=== PATIENT | female | born 1950 | race Caucasian/White ===

== ENCOUNTER → 2016-04-24 08:45 | Outpatient (CLI) | payer MEDICARE, OTHER ==
[2015-12-12 10:11] VITALS: BMI 25.9
[~2016-04-24 08:45] MED LIST: ACETAMINOPHEN500 M1 PO; ADVIL200 MG PO; ATROVENT 0.02%2.5 ML UPD; BACTRIM DS TABL1 TAB PO; BENZONATATE200 MG PO; FLORASTOR250 MG PO; IPRAT-ALBUT 0.5-3 ML UPD; LASIX20 MG PO; MAXIPIME 2 GM/D52 G1 IV; MILK OF MAGNESI30 ML GT; MIRALAX17 GM PO; MUCINEX D1 TAB.SR . PO; MUCINEX600 MG PO; MULTIPLE VITAMI1 TA1 PO; OMEPRAZOLE40 MG PO; PLAQUENIL200 MG PO; PREDNISONE10 MG PO; PREDNISONE5 MG PO; PRILOSEC20 MG PO; PROTONIX40 MG PO; SALINE NASAL SP45 ML NS; SOLU-MEDRO40 MG/1 M1 IV; SYNTHROID50 MCG PO; TOPROL XL25 MG PO; TOPROL XL50 MG PO; TUSSIONEX PENN473 ML PO; TYLENOL #4 W/CO1 TAB PO; VANCOMYCIN 1 GM/1 G1 IV; VIBRAMYCIN 100100 MG PO; VITAMIN D2000 UNIT PO; XOPENEX 0.0.63 MG/3 UPD; ZITHROMAX250 MG PO; ZITHROMAX500 MG PO; ZOLOFT50 MG PO
== END | disposition home or self-care (01) ==
LOC: D.RT 08:45
DX: J84.9 Interstitial pulmonary disease, unspecified (principal)

== ENCOUNTER → 2016-06-12 12:01 | Outpatient (CLI) | payer MEDICARE, OTHER ==
[2015-12-12 10:11] VITALS: BMI 25.9
== END | disposition home or self-care (01) ==
LOC: D.RAD 11:00
DX: J18.9 Pneumonia, unspecified organism (principal)

== ENCOUNTER → 2016-07-16 08:35 | Outpatient (CLI) | payer MEDICARE, OTHER ==
[2015-12-12 10:11] VITALS: BMI 25.9
== END | disposition home or self-care (01) ==
LOC: D.CT 08:35
DX: J84.9 Interstitial pulmonary disease, unspecified (principal)

== ENCOUNTER → 2016-11-05 07:30 | Outpatient (CLI) | payer MEDICARE, OTHER ==
[2015-12-12 10:11] VITALS: BMI 25.9
== END | disposition home or self-care (01) ==
LOC: D.RAD 07:30
DX: J18.8 Other pneumonia, unspecified organism (principal)

== ENCOUNTER 2016-12-29 10:17 | Emergency (ER) | payer MEDICARE, OTHER | END 2016-12-29 11:59 | disposition home or self-care (01) | LOC: D.ER 10:17 | DX: R50.9 Fever, unspecified (principal); J18.9 Pneumonia, unspecified organism; I50.9 Heart failure, unspecified; M32.9 Systemic lupus erythematosus, unspecified; Z95.0 Presence of cardiac pacemaker ==

== ENCOUNTER → 2017-01-28 17:02 | Outpatient (CLI) | payer MEDICARE, OTHER ==
[2015-12-12 10:11] VITALS: BMI 25.9
[~2017-01-28 17:02] MED LIST changes: +AUGMENTIN 875-11 TAB PO; +HYDROCODON-ACE1 EAC7 PO; +IMURAN50 MG PO; +PEPCID20 MG PO; +PREDNISONE10 MG; +[UNRECOGNIZED DRUG - OTHER]
[2017-01-28 20:05] LABS: NEUT - BF 57 %
== END | disposition home or self-care (01) ==
LOC: D.LABREF 17:02
PROVIDERS: Orthopaedic Surgery
DX: L02.91 Cutaneous abscess, unspecified (principal)

== ENCOUNTER 2017-02-12 11:26 | Day surgery (SDC) | payer MEDICARE, OTHER ==
[~2017-02-12 11:26] MED LIST changes: -AUGMENTIN 875-11 TAB PO; -HYDROCODON-ACE1 EAC7 PO; -IMURAN50 MG PO; -PEPCID20 MG PO; -PREDNISONE10 MG; -[UNRECOGNIZED DRUG - OTHER]
[2017-02-12 12:03] LABS: HEMATOCRIT 46.4 % (36.0-48.0); HEMOGLOBIN 14.5 g/dL (12-16); MCH 31.1 pg (26.0-34.0); MCHC 31.3 g/dL (31.0-37.0); MCV 99.6 fL (80.0-100.0); MEAN PLATELET VOLUME 10.1 fL (7.4-10.4); RBC 4.66 10x6/uL (4.00-5.40); RDW 18.3 % (11.5-14.5); WBC 9.7 10x3/uL (4.8-10.8)
[2017-02-12 12:27] LABS: CALC OSMOLALITY 282 mosm/kg (275-300); CARBON DIOXIDE 23.5 mmol/L (21.0-32.0); CHLORIDE - SERUM 104 mmol/L (98-107); CREATININE - SERUM 0.8 mg/dL (0.6-1.3); GLUCOSE 88 mg/dL (74-106); POTASSIUM - SERUM 4.4 mmol/L (3.5-5.1); SODIUM 142 mmol/L (136-145); UREA NITROGEN 15 mg/dL (7-18); eGFR NON AFRICAN AMERICAN 76 mL/min (90-120)
[2017-02-12] MEDS ORDERED: PREDNISONE10 MG (13:30)
[2017-02-12] MEDS ORDERED: IMURAN50 MG PO (13:33)
[2017-02-12] MEDS ORDERED: AUGMENTIN 875-11 TAB PO ×2 (13:34→16:05)
[2017-02-12] MEDS ORDERED: PEPCID20 MG PO (13:34)
[2017-02-12] MEDS ORDERED: [UNRECOGNIZED DRUG - OTHER] (13:35)
[2017-02-12 13:36] VITALS: BP 117/79; BMI 27.1
[2017-02-12] MEDS ORDERED: HYDROCODON-ACE1 EAC7 PO (16:11)
--- NOTE | 2017-02-12 17:51 | NUR ---
1715 IV DC WITH CATHER TIP INTACT
--- NOTE | 2017-02-18 08:11 | OP ---
PATIENT NAME: MATTEO TRAN MEDICAL RECORD: [id number] :[birth year] LOCATION:[facility] ADMISSION DATE: SURGEON: BOB CAMARGO DO DATE OF OPERATION: 02/12/2017 PROCEDURE PERFORMED: Left dorsal wrist extensor compartment debridement and left index finger mass excision. PREOPERATIVE DIAGNOSES: Left index finger nodule and mass and left dorsal wrist mass. POSTOPERATIVE DIAGNOSES: Left index finger mass and a left wrist extensor tenosynovitis. INDICATIONS: Ms. Tran is a 66-year-old female who presented to my office approximately 3 weeks ago with a large mass on the dorsal side of her index finger that was red and swollen. She had been taking antibiotics and had it decompressed even and it continued to come back. I saw her once a week and then also the dorsal wrist mass was aspirated and it came back too. Once this was done and did not get better, the story she told was that she had been stuck with a cactus needle and thinking due to her rheumatologic disease, she may be even susceptible to a fungal infection. She was put on itraconazole, which did not make it better, so then once this was done, she presented back to my office yesterday and she wanted surgery to get both of them cut out. She was having extensor tendon pain as well and the mass was just over all of her extensor compartments of the wrist. I told her that we would excise the mass as well as the wound on her index finger. DESCRIPTION OF PROCEDURE: The patient was taken to the operative suite, given 2 grams of Ancef, placed in supine position, given general anesthetic and had an LMA placed. The left arm was prepped and draped in sterile fashion. Once this was done, a timeout was performed, everyone was in agreement with the correct side, site and patient. A tourniquet had been placed above the elbow prior to this. Once everyone was in agreement with the correct procedure and correct patient and the correct side, the left upper extremity was exsanguinated with Esmarch and the tourniquet was inflated to 250 mmHg. This was up for 35 minutes during the procedure. Attention was first drawn to the mass on the index finger. An incision was made directly over the dorsal mass. It was over the proximal phalanx of the index finger. As soon as this was done and the skin was incised with a #15 blade, scissors were used to dissect down to the mass. The mass was punctured and purulent material came out. This purulent material was cultured. Then, a careful dissection was made around that area and any of the mass that was still there had been walled off. The wall was removed and any hard pieces that were thought may have been cacti needle were removed as well and sent to the lab. Attention was then drawn to the dorsal wrist. There was quite a large mass over the extensor compartments of the dorsal wrist. An incision was made right over the fourth dorsal compartment and once this was done, careful dissection was made down to the mass itself and was seen to be quite large enveloping most of the extensor tendons on the dorsal wrist and the entire extensor compartments, mostly the third and fourth and some of the fifth extensor compartments and the mass was excised with careful dissection around the tendons and the tendons had seemed to have had some damage likely due to this mass and rubbing due to compression. The extensor retinaculum was incised as well to be able to incise the entire mass. This was all taken out from around the tendon and decompressed and debrided. Once this was done, the extensor OPERATIVE REPORT [id number] MATTEO TRAN retinaculum was loosely closed with 0 Vicryl in a soyuet-bg-onkcy fashion. The tourniquet was let down and pressure was placed over the wounds. Once this was done, the longer incision of the dorsal extensor compartments was approximated with 5-0 Monocryl in an inverted interrupted fashion and then 5-0 nylon was ran in a running stitch on the skin. The incision over the index finger on the dorsal side was closed with a horizontal mattress using the 5-0 nylon. The mass that was excised from the wrist was sent to the lab as well. Tourniquet was let down at 35 minutes. COMPLICATIONS: None. BLOOD LOSS: Minimal. TRANSINT:[id number] Voice Confirmation ID: [id number] DOCUMENT ID: [id number] BOB CAMARGO DO at 0811 CC: [id number] DICTATION DATE: 02/12/17 1610 FIELD SERVICE COORDINATOR: 02/12/17 1752 [facility] 02/12/17 [facility] [address] [id number]
== END 2017-02-12 17:30 | disposition home or self-care (01) ==
LOC: D.OPS 11:26 → D.PAN 14:00 → D.OPS 14:00
PROVIDERS: Anesthesiology; Orthopaedic Surgery
DX: M67.442 Ganglion, left hand (principal); R22.32 Localized swelling, mass and lump, left upper limb; M77.02 Medial epicondylitis, left elbow; I50.9 Heart failure, unspecified; E03.9 Hypothyroidism, unspecified; K21.9 Gastro-esophageal reflux disease without esophagitis; Z01.812 Encounter for preprocedural laboratory examination

== ENCOUNTER → 2017-03-12 11:03 | Outpatient (CLI) | payer MEDICARE, OTHER ==
[2017-02-12 13:36] VITALS: BMI 27.1
[~2017-03-12 11:03] MED LIST changes: +AUGMENTIN 875-11 TAB PO; +HYDROCODON-ACE1 EAC7 PO; +IMURAN50 MG PO; +PEPCID20 MG PO; +PREDNISONE10 MG; +[UNRECOGNIZED DRUG - OTHER]
[2017-03-12 11:23] LABS: BASOPHILS 0.1 % (0-2); EOSINOPHILS 0.3 % (0-7); HEMATOCRIT 47.7 % (36.0-48.0); IMMATURE GRANULOCYTES 2.7 % (0-5); LYMPHOCYTES 10.5 % (15-50); MCH 31.5 pg (26.0-34.0); MCHC 31.4 g/dL (31.0-37.0); MCV 100.2 fL (80.0-100.0); MEAN PLATELET VOLUME 10.8 fL (7.4-10.4); MONOCYTES 8.7 % (2-11); NEUTROPHILS 77.7 % (40-80); PLATELET COUNT 265 10x3/uL (130-400); RBC 4.76 10x6/uL (4.00-5.40); RDW 19.1 % (11.5-14.5); WBC 6.7 10x3/uL (4.8-10.8)
[2017-03-12 11:42] LABS: ALBUMIN 3.4 g/dL (3.4-5.0); ALKALINE PHOSPHATASE 62 U/L (46-116); ALT (SGPT) 55 U/L (10-68); CALC OSMOLALITY 281 mosm/kg (275-300); CALCIUM 8.6 mg/dL (8.5-10.1); CHLORIDE - SERUM 103 mmol/L (98-107); CREATININE - SERUM 0.8 mg/dL (0.6-1.3); GLUCOSE 84 mg/dL (74-106); POTASSIUM - SERUM 4.5 mmol/L (3.5-5.1); PROTEIN - SERUM 6.7 g/dL (6.4-8.2); SODIUM 141 mmol/L (136-145); UREA NITROGEN 18 mg/dL (7-18); eGFR NON AFRICAN AMERICAN 76 mL/min (90-120)
== END | disposition home or self-care (01) ==
LOC: D.LABREF 11:03
PROVIDERS: Student in an Organized Health Care Education/Training Program
DX: B48.8 Other specified mycoses (principal)

== ENCOUNTER → 2017-03-22 10:17 | Outpatient (CLI) | payer MEDICARE, OTHER | END | disposition home or self-care (01) | LOC: D.LABREF 10:17 | DX: B48.8 Other specified mycoses (principal); Z51.81 Encounter for therapeutic drug level monitoring; Z79.899 Other long term (current) drug therapy ==

== ENCOUNTER → 2017-05-16 12:32 | Outpatient (CLI) | payer MEDICARE, OTHER | END | disposition home or self-care (01) | LOC: D.PAN 02-11 15:00 → D.OPS 02-12 14:00 → D.RT 12:32 → D.OPS 13:00 → D.RT 13:00 | DX: J84.9 Interstitial pulmonary disease, unspecified (principal); R06.02 Shortness of breath ==

== ENCOUNTER → 2017-06-25 07:41 | Outpatient (CLI) | payer MEDICARE, OTHER | END | disposition home or self-care (01) | LOC: D.RAD 07:41 | DX: J84.9 Interstitial pulmonary disease, unspecified (principal) ==

== ENCOUNTER → 2017-06-27 09:52 | Outpatient (CLI) | payer MEDICARE, OTHER | END | disposition home or self-care (01) | LOC: D.RAD 09:52 | DX: M25.522 Pain in left elbow (principal) ==

== ENCOUNTER 2017-10-13 05:50 | Emergency (ER) | payer MEDICARE, OTHER ==
[~2017-10-13] VITALS: Ht 167.6 cm; Wt 74.8 kg
[2017-10-13 05:52] VITALS: Ht 167.6 cm; Wt 74.8 kg
[2017-10-13] MEDS ORDERED: PROTONIX20 MG PO (05:55)
[2017-10-13] MEDS ORDERED: LANOXIN250 MCG PO (05:55)
[2017-10-13] MEDS ORDERED: LONITEN10 MG PO (05:59)
[2017-10-13 06:59] VITALS: BP 128/67
[2017-10-14] MEDS ORDERED: HYDROCODONE-APA1 TAB PO (08:48)
[2017-10-14] MEDS ORDERED: FAMVIR500 MG PO (08:48)
== END 2017-10-13 07:01 | disposition home or self-care (01) ==
LOC: D.ER 05:50
DX: R07.81 Pleurodynia (principal); I50.9 Heart failure, unspecified; Z95.0 Presence of cardiac pacemaker

== ENCOUNTER 2017-10-14 07:27 | Emergency (ER) | payer MEDICARE, OTHER ==
[~2017-10-14] VITALS: Ht 167.6 cm; Wt 75.0 kg
[~2017-10-14 07:27] MED LIST changes: +LANOXIN250 MCG PO; +LONITEN10 MG PO; +PROTONIX20 MG PO
[2017-10-14 07:36] VITALS: Ht 167.6 cm; Wt 75.0 kg
[2017-10-14] MEDS ORDERED: FAMVIR500 MG PO (08:48)
[2017-10-14] MEDS ORDERED: HYDROCODONE-APA1 TAB PO (08:48)
[2017-10-14 09:24] VITALS: BP 186/98
== END 2017-10-14 09:26 | disposition home or self-care (01) ==
LOC: D.ER 07:27
DX: B02.9 Zoster without complications (principal); M54.5 Low back pain

== ENCOUNTER 2018-02-17 13:39 | Inpatient (IN) | payer MEDICARE, OTHER ==
[~2018-02-17] VITALS: Ht 167.6 cm; Wt 70.0 kg
--- NOTE | ~2018-02-17 | MORECARE ---
CASE MANAGEMENT DISCHARGE SUMMARY PATIENT: MATTEO GANNON UNIT: [id number] ADM DATE: 02/17/18 AGE: 67 : 49 SEX: F ROOM/BED: D.2231 AUTHOR: SHANIDOC PHYSICIAN: REFERRING PHYSICIAN: MUNIRA ORTIZ MD DATE OF SERVICE: 02/18/18 Discharge Plan Patient Name: MATTOE GANNON Facility: [facility]:[place] : 1950 Planned Disposition: Home Anticipated Discharge Date: Discharge Date: Expected LOS: Initial Reviewer: [email or web address] Initial Review Date: 02/18/2018 Generated: 02/18/18 1:45 pm Comments DCP- Discharge Planning Updated by [email or web address]: Leticia Olivarez on 02/18/18 11:[address] Patient Name: MATTEO GANNON Admission Status: Elective Accout number: [id number] Admission Date: 02-17-2018 : 1950 Admission Diagnosis: Attending: MUNIRA ORTIZ Current LOS: 1 Anticipated DC Date: Planned Disposition: Home Primary Insurance: MEDICARE A & B Discharge Planning Comments: CM met with patient and her to discuss discharge planning. She lives with her . She is independent with all ADL's and IADL's. States she has a cane and walker at home but does not use them. She has oxygen and portable oxygen from [employer]. She no longer uses a nebulizer. Discussed availability of additional DME and home health services. She declines need for DME or home health. No needs identified. CM will continue to follow and assist with discharge planning/needs. Bar Host/Hostess: Leticia Olivarez DCPIA - Discharge Planning Initial Assessment Updated by [email or web address]: Leticia Olivarez on 02/18/18 12:39 pm * Is the patient Alert and Oriented? Yes * How many steps to enter\exit or inside your home? 1/2 * PCP Dr. Ortiz * Pharmacy [facility] on [address] [facility] for maintenance meds * Preadmission Environment Home with Family * ADLs Independent * Equipment Cane Other Oxygen Walker * Other Equipment Portable oxygen DME company is [employer] * List name and contact numbers for known caregivers / representatives who currently or will assist patient after discharge: Velasquez Gannon - spouse - [phone] * Verbal permission to speak to the caregivers and representatives has been obtained from the patient. Yes * Community resources currently utilized None * Additional services required to return to the preadmission environment? No * Can the patient safely return to the preadmission environment? Yes * Has this patient been hospitalized within the prior 30 days at any hospital? No Patient Name: MATTEO GANNON Page [phone] at 1245 All edits/amendments must be made on the electronic document DICTATION DATE: 02/18/181243 LABORER [employer]: RAJWINDER 02/18/181243 RPT#: [id number] DC DATE: STATUS: ADM IN [facility] [address] [place] [address] END OF REPORT
--- NOTE | ~2018-02-17 | HP ---
PATIENT: MATTEO GANNON MEDICAL RECORD: [id number] ACCOUNT: [id number] LOCATION:D.MS [address] : [birth year] ADMISSION DATE: 02/17/18 PCP: MUNIRA ORTIZ MD HISTORY AND PHYSICAL EXAMINATION DATE OF ADMISSION: 02/17/2018. REASON FOR ADMISSION: Fever, chills, aches. HISTORY OF PRESENT ILLNESS: This is a 67-year-old white female who has systemic lupus with polymyositis followed by Dr. Dove. She has interstitial lung disease followed by Dr. Danielle. She has been on Imuran and prednisone per Dr. Dove. She has some episodes of feeling bad and respiratory symptoms off and on for the last 3-4 weeks now. She presented to my office a few weeks ago complaining flu-like symptoms. She was treated empirically with Tamiflu. She did not totally get over it. She continued to have some low-grade fever and chills and was treated with 10 days of Augmentin. She came back and saw her nurse practitioner. Chest x-ray was done, it suggested pneumonia. We did not have any old chest x-rays in our clinic to compare with. She does have a history of the interstitial lung disease. She was started on doxycycline, came back and saw me on 02/14/2018 where she continued to have chills and fever up to 100.9. She basically has not felt better. Dr. Dove had taken her off Imuran and did not want to start her back on that until she was better from that. Her cough is mostly dry, it gets worse as she moves around. Her O2 sat has been dropping at home as she does have a handheld pulse oximeter. Her chest x-ray done in our office was compared with previous films done here at [facility] earlier in the year and it shows worsening overall picture of either interstitial lung disease or underlying pneumonia. She is admitted for further care of this. PAST MEDICAL AND SURGICAL HISTORY: She has had SLE with polymyositis followed by Dr. Dove. She has had interstitial lung disease followed by Dr. Danielle. She had nonspecific interstitial pneumonia in 2016, sick sinus syndrome with pacemaker, CHF with diastolic dysfunction, osteopenia, hypothyroidism, depression, high cholesterol and reflux. PAST SURGICAL HISTORY: Cholecystectomy and hysterectomy. HABITS: Former smoker, no alcohol or drugs. SOCIAL HISTORY: , lives with her . She is retired. HOME MEDICATIONS: Include doxycycline 100 mg twice a day, azathioprine 50 mg 3 tablets daily, pantoprazole 20 mg twice a day, prednisone 8 mg a day, gabapentin 100 mg 3 times a day, Zoloft 50 mg once a day, vitamin D3 2000 unit tablet a day, levothyroxine 50 mcg one half tablet daily. ALLERGIES: None known. FAMILY HISTORY: Father at 82, he had arthritis and heart disease. Mother at 76. She had breast cancer and diabetes. REVIEW OF SYSTEMS: GENERAL: No major weight changes in the last few months. HEENT: No particular sinus or allergy problems. HISTORY AND PHYSICAL [id number] TERESSAMATTEO M RESPIRATORY: See above history with her interstitial lung disease followed by Dr. Danielle. CARDIAC: She has sick sinus syndrome with pacemaker and diastolic dysfunction. GASTROINTESTINAL: She has had reflux. GENITOURINARY: Occasional urinary tract infection. MUSCULOSKELETAL: No significant joint aches or pains. NEUROLOGIC: No seizures or migraines. PSYCHIATRIC: She has some depression. PHYSICAL EXAMINATION: VITAL SIGNS: Temperature is 97.5 currently, pulse 73, respirations 16, blood pressure 122/82, O2 sat 94% currently on room air. GENERAL: She is awake and alert. She is in no acute distress while she is lying still in the bed. SKIN: Warm and dry. HEENT: Unremarkable. NECK: Supple. No JVD or bruit. HEART: Regular rate and rhythm. LUNGS: With scattered crackles throughout both lung saucedo bilaterally. ABDOMEN: Soft. EXTREMITIES: No edema. LABORATORY DATA: CBC with a white count of 7200, hemoglobin 14.9, hematocrit 44. Sodium 143, potassium 3.6, chloride 107, BUN 20, creatinine 0.9, glucose 106, calcium 8.8. Liver functions are all normal. ASSESSMENT: Ongoing fever, chills with history of interstitial lung disease and possible pneumonia. She is admitted. Dr. Danielle is consulted. We will get a high resolution CT scans, blood cultures. We will start her empirically on antibiotics. Further workup per Dr. Danielle. TRANSINT:[id number] Voice Confirmation ID: [id number] DOCUMENT ID: [id number] MUNIRA ORTIZ MD at 0829 CC: [id number] DICTATION DATE: 02/17/182220 ARMORED TRANSPORT SERVICE MANAGER: 02/17/182239 ADM IN [facility] [address] [id number]
--- NOTE | ~2018-02-17 | CN ---
PATIENT NAME:MATTEO GANNON MEDICAL RECORD: [id number] : [birth year] LOCATION:D.MS Diehl2231 ADMIT DATE: 02/17/18 ACCOUNT: [id number] CONSULTING PHYSICIAN: CHUCHO LI MD REFERRING PHYSICIAN: MUNIRA ORTIZ MD DATE OF CONSULTATION: 02/19/2018 RHEUMATOLOGY CONSULTATION HISTORY: Matteo Gannon is a 67-year-old woman well known to me for treatment for polymyositis over the last 25 years, whom I have been asked to reevaluate by Dr. Danielle, her crop and soil technician. The patient had been treated for polymyositis with upper and lower extremity weakness and associated lung disease with high dose of steroids and Imuran starting in December of 2015. She was initially on lower dose and gradually increased up to maximum dose of 50 mg four times a day in June 2016. Steroids were gradually tapered. At times when she was tapered, she would have worsening muscle weakness and prednisone had to be temporarily increased. She was fairly stable until 10/14/2017 when she developed shingles. Imuran was discontinued for 25 days and then restarted on 11/08/2017 at a lower dose of 50 mg three times daily. Prednisone was continued to be tapered slowly and most recently had been decreased to 8 mg a day on 12/14/2017. The patient reports that, about 4 weeks ago, she received a flu shot. She was traveling out of state with her and returned home and then developed fever up to 101 degrees, chills, myalgias/arthralgias, and headache. She contacted our office and was told immediately to hold Imuran and see primary care physician. She saw her primary care physician, Dr. Ortiz, approximately 3 weeks ago and reportedly tested negative for flu, but received a course of Tamiflu. She was treated with Augmentin for 10 days without apparent benefit. Chest x-ray reportedly showed changes suggesting pneumonia. Due to persistent symptoms, she was then placed on doxycycline 100 mg b.i.d. starting on 02/06/2018. Symptoms persisted throughout all this. She had worsening in oxygen desaturation with mild exertion and some dyspnea. Throughout this, she had dry cough. This prompted current hospitalization. On admission, WBC 7200, hemoglobin 14.9, and platelets 153,000. Sodium 143, potassium 3.6, BUN 20, calcium 8.8, and creatinine 0.9. CRP 1.2. Albumin 2.6. Sed rate 21. Chest CT on February 18 showed worsening bilateral chronic interstitial changes, worse in the right lung than the left lung compared to previous CT of 07/16/2016, suggesting either infectious or inflammatory process. The patient underwent bronchoscopy today showing minimally inflamed mucosa of the trachea and the leo in the bronchial tree. Cultures from bronchoscopy and fungal serologies are pending. On admission on February 17, the patient was placed on Solu-Medrol 40 mg every eight hours. Imuran was restarted at 50 mg three times daily. Plaquenil home dose was increased from 200 mg once a day to twice daily. On the steroids, her aches and pains have resolved, but she reports her mild exertional dyspnea with walking in the room persists. CONSULT REPORT [id number] MATTEO GANNON She has a 4-month history of some intermittent epigastric discomfort, responded to Tums and Mylanta. She remains on Protonix. She denies nausea, vomiting, melena, hematochezia, rash, petechia, or purpura. HOME MEDICINES: Plaquenil 200 mg once a day (decreased on 10/25/2016 due to potential interaction with beta negar); prednisone 8 mg a day (decreased on ); calcium with vitamin D b.i.d.; multivitamin one daily; vitamin D 2000 units three times daily; Protonix 40 mg b.i.d. (past history of esophagitis); Zoloft 50 mg a day for panic attacks; levothyroxine 0.025 mg daily (dosage decreased on 11/08/2017); yearly IV Reclast for osteopenia; Bactrim DS on Saturday, Saturday, and Saturday for PCP prophylaxis (discontinued on 09/13/2017 on her own); Imuran 50 mg four times daily (decreased on 11/08/2017 to 50 mg three times daily); Pepcid 20 mg in the evening; and gabapentin 100 mg four times daily. CURRENT MEDICATIONS: Tessalon discontinued today, tramadol 50 mg every four hours p.r.n., metoprolol 25 mg daily, gabapentin 100 mg three times daily, Lovenox 40 mg subcutaneous daily, vitamin D 2000 units daily, Atrovent updrafts q.i.d., Synthroid 50 mcg daily, Zoloft 50 mg daily, Plaquenil 200 mg b.i.d., Imuran 50 mg t.i.d. (restarted on 02/17/2018), Solu-Medrol 40 mg every eight hours (02/17/2018), Protonix 40 mg b.i.d., and multivitamin daily. PAST MEDICAL HISTORY: She was treated in spring time with voriconazole for fungal infection of the left hand and forearm, which was completed in June 2017 and then switched to Noxafil, which was completed in October of 2017. She has shingles in right flank and lower quadrant, treated October 2017. Nerve conduction studies in June 2017 showed chronic denervation of the lower extremity muscles compatible with long-standing polymyositis with axonal loss, past history of herpetic esophagitis. SOCIAL HISTORY: She does not smoke or drink alcohol. She lives with her . FAMILY HISTORY: Negative for autoimmune disease other than brother has positive ZARIA and has slight lupus. PHYSICAL EXAMINATION: VITAL SIGNS: Blood pressure 130/82, pulse 64 and regular, respirations 18, and temperature 98. GENERAL: She appears well but tired. HEENT: Head: Normal female hair pattern. Eyes: Conjuctivae are clear. Mouth is moist without lesions. NECK: Free of adenopathy or masses. LUNGS: Clear. CARDIOVASCULAR: S1 and S2 are normal without gallop, murmur, or rub. ABDOMEN: Soft and nontender without guarding or mass. MUSCULOSKELETAL: There is no inflammation of joint in upper and lower extremities. All joints have full range of motion. NEUROLOGIC: Cranial nerves are intact. Muscle strength is 5/5 in deltoids, biceps, and triceps; and about 4.5/5 in soleus and quadriceps. Distal strength is normal. SKIN: Without rash, petechia, or dependent edema. Cheeks are slightly flushed. PSYCHIATRIC: Normal affect. Alert and oriented. IMPRESSIONS: CONSULT REPORT [id number] MATTEO GANNON 1. Polymyositis with associated inflammatory lung disease, previously responsive to Imuran and prednisone. 2. [id number] respiratory insufficiency with worsening chest CT with interstitial changes either due to inflammatory process or infectious process. 3. Nonresponse to course of Augmentin and subsequent course of doxycycline. 4. Gram-negative delmar UTI (per Dr. Ortiz). RECOMMENDATIONS: 1. Observe response to Solu-Medrol and response to steroids. We will later convert to prednisone and taper slowly. 2. If she responds to steroids, then we will consider increasing Imuran back to her previous dose of 50 mg four times daily (dose had been lowered in October 2017). 3. Await results of fungal serologies. 4. Await results of bronchoscopy cultures. 5. On discharge, decrease Plaquenil back to 200 mg once daily. 6. On discharge, decrease levothyroxine back to home dose of 25 mcg daily. TRANSINT:[id number] Voice Confirmation ID: [id number] DOCUMENT ID: [id number] CHUCHO LI MD at 0809 CC: [id number] DICTATION DATE: 02/19/18 1515 USED CAR MANAGER: 02/19/18 1825 ADM IN [facility] [address] [id number]
--- NOTE | ~2018-02-17 | MORECARE ---
CASE MANAGEMENT DISCHARGE SUMMARY PATIENT: MATTEO GANNON UNIT: [id number] ADM DATE: 02/17/18 AGE: 67 : [birth year] SEX: F ROOM/BED: D.2231 AUTHOR: VIOLA MCLEOD PHYSICIAN: REFERRING PHYSICIAN: MUNIRA ORTIZ MD DATE OF SERVICE: 02/24/18 Discharge Plan Patient Name: MATTEO GANNON Facility: [facility]:[place] : 1950 Planned Disposition: Home Anticipated Discharge Date: Discharge Date: 02/21/2018 Expected LOS: Initial Reviewer: [email or web address] Initial Review Date: 02/18/2018 Generated: 02/24/18 3:33 pm Comments DCP- Discharge Planning Updated by [email or web address]: Leticia Olivarez on 02/21/18 9:[address] Patient Name: MATTEO GANNON Encounter No: [id number] : 1950 Primary Insurance: MEDICARE A & B Anticipated DC Date: Planned Disposition: Home External Planned Provider: : DCP follow-up note: Patient and family in agreement with discharge plan. I faxed pulmonary rehab order to [facility] at [phone]. Patient states she has been there before for outpatient pulmonary therapy. I gave patient the number to call on Saturday. I notified Matteo at Dr. Danielle's office that the Pulmonary OP therapy is not open today, but I did leave a message for them to call me. No changes to plan. She is discharging home today, declines need for [facility]. Case management will follow and assist as needed. Leticia Olivarez DCP- Discharge Planning Updated by [email or web address]: Leticia Sher on 02/18/18 11:[address] Patient Name: MATTEO GANNON Admission Status: Elective Accout number: [id number] Admission Date: 02-17-2018 : 1950 Admission Diagnosis: Attending: MUNIRA ORTIZ Current LOS: 1 Anticipated DC Date: Planned Disposition: Home Primary Insurance: MEDICARE A & B Discharge Planning Comments: CM met with patient and her to discuss discharge planning. She lives with her . She is independent with all ADL's and IADL's. States she has a cane and walker at home but does not use them. She has oxygen and portable oxygen from [employer]. She no longer uses a nebulizer. Discussed availability of additional DME and home health services. She declines need for DME or home health. No needs identified. CM will continue to follow and assist with discharge planning/needs. Parts Processor: Leticia Olivarez DCPIA - Discharge Planning Initial Assessment Updated by [email or web address]: Leticia Olivarez on 02/18/18 12:39 pm * Is the patient Alert and Oriented? Yes * How many steps to enter\exit or inside your home? 1/2 * PCP Dr. Ortiz * Pharmacy [facility] on [address] [facility] for maintenance meds * Preadmission Environment Home with Family * ADLs Independent * Equipment Cane Other Oxygen Walker * Other Equipment Portable oxygen DME company is [employer] * List name and contact numbers for known caregivers / representatives who currently or will assist patient after discharge: Velasquez Gannon - spouse - [phone] * Verbal permission to speak to the caregivers and representatives has been obtained from the patient. Yes * Community resources currently utilized None * Additional services required to return to the preadmission environment? No * Can the patient safely return to the preadmission environment? Yes * Has this patient been hospitalized within the prior 30 days at any hospital? No Coverage Notice Reviewer: [email or web address] - Leticia Olivarez Notice Issued Date-Time: 02/21/2018 10:41 Notice Type: IM Discharge Notice Notice Delivered To: Patient Relationship to Patient: Self Capsule Maker Name: Delivery Method: HAND - Hand Delivered Ernestine Days: Prior Verbal Notification: Recipient Understood Notice: Yes Recipient Signature: Yes Med Rec Note Co-signed by Attending: Coverage Notice Comment: IMM explained, signed, copy given, original placed in MR Last DP export: 02/21/18 9:44 a Patient Name: MATTEO GANNON Page [phone] at 1433 All edits/amendments must be made on the electronic document DICTATION DATE: 02/24/181432 SALES PRODUCT MANAGER: RAJWINDER 02/24/181432 RPT#: [id number] DC DATE:02/21/18 STATUS: DIS IN [facility] [address] [place] [address] END OF REPORT
--- NOTE | ~2018-02-17 | MORECARE ---
CASE MANAGEMENT DISCHARGE SUMMARY PATIENT: MATTEO GANNON UNIT: [id number] ADM DATE: 02/17/18 AGE: 67 : [birth year] SEX: F ROOM/BED: D.2231 AUTHOR: VIOLA MCLEOD PHYSICIAN: REFERRING PHYSICIAN: MUNIRA ORTIZ MD DATE OF SERVICE: 02/21/18 Discharge Plan Patient Name: MATTEO GANNON Facility: [facility]:[place] : 1950 Planned Disposition: Home Anticipated Discharge Date: Discharge Date: Expected LOS: Initial Reviewer: [email or web address] Initial Review Date: 02/18/2018 Generated: 02/21/18 11:44 am Comments DCP- Discharge Planning Updated by [email or web address]: Leticia Olivarez on 02/21/18 9:[address] Patient Name: MATTEO GANNON Encounter No: [id number] : 1950 Primary Insurance: MEDICARE A & B Anticipated DC Date: Planned Disposition: Home External Planned Provider: : DCP follow-up note: Patient and family in agreement with discharge plan. I faxed pulmonary rehab order to [facility] at [phone]. Patient states she has been there before for outpatient pulmonary therapy. I gave patient the number to call on Saturday. I notified Matteo at Dr. Danielle's office that the Pulmonary OP therapy is not open today, but I did leave a message for them to call me. No changes to plan. She is discharging home today, declines need for HHS. Case management will follow and assist as needed. Leticia Olivarez DCP- Discharge Planning Updated by [email or web address]: Leticia Sher on 02/18/18 11:[address] Patient Name: MATTEO GANNON Admission Status: Elective Accout number: [id number] Admission Date: 02-17-2018 : 1950 Admission Diagnosis: Attending: MUNIRA ORTIZ Current LOS: 1 Anticipated DC Date: Planned Disposition: Home Primary Insurance: MEDICARE A & B Discharge Planning Comments: CM met with patient and her to discuss discharge planning. She lives with her . She is independent with all ADL's and IADL's. States she has a cane and walker at home but does not use them. She has oxygen and portable oxygen from [employer]. She no longer uses a nebulizer. Discussed availability of additional DME and home health services. She declines need for DME or home health. No needs identified. CM will continue to follow and assist with discharge planning/needs. Automat Car Attendant: Leticia Olivarez DCPIA - Discharge Planning Initial Assessment Updated by [id number]: Leticia Sharpjt on 02/18/18 12:39 pm * Is the patient Alert and Oriented? Yes * How many steps to enter\exit or inside your home? 1/2 * PCP Dr. Ortiz * Pharmacy [facility] [address] [facility] for maintenance meds * Preadmission Environment Home with Family * ADLs Independent * Equipment Cane Other Oxygen Walker * Other Equipment Portable oxygen DME company is [employer] * List name and contact numbers for known caregivers / representatives who currently or will assist patient after discharge: Velasquez Gannon - spouse - [phone] * Verbal permission to speak to the caregivers and representatives has been obtained from the patient. Yes * Community resources currently utilized None * Additional services required to return to the preadmission environment? No * Can the patient safely return to the preadmission environment? Yes * Has this patient been hospitalized within the prior 30 days at any hospital? No External Providers External Provider: OTHER-OTHER Next Contact Date: Service Request Date: Service Type: Resolution: Reviewer: Comments: Coverage Notice Reviewer: [email or web address] - Leticia Olivarez Notice Issued Date-Time: 02/21/2018 10:41 Notice Type: IM Discharge Notice Notice Delivered To: Patient Relationship to Patient: Self Hog Slaughterer Name: Delivery Method: HAND - Hand Delivered Ernestine Days: Prior Verbal Notification: Recipient Understood Notice: Yes Recipient Signature: Yes Med Rec Note Co-signed by Attending: Coverage Notice Comment: IMM explained, signed, copy given, original placed in MR Last DP export: 02/18/18 11:45 a Patient Name: MATTEO GANNON Page 17823 at 1044 All edits/amendments must be made on the electronic document DICTATION DATE: 02/21/18 1043 COMPRESSOR STATION ENGINEER: RAJWINDER 02/21/18 1043 RPT#: [id number] DC DATE: STATUS: ADM IN [facility] [address] [place] [address] END OF REPORT
[~2018-02-17 13:39] MED LIST changes: +FAMVIR500 MG PO; +HYDROCODONE-APA1 TAB PO
[2018-02-17 14:30] LABS: BASOPHILS 0.3 % (0-2); EOSINOPHILS 4.2 % (0-7); HEMOGLOBIN 14.9 g/dL (12-16); IMMATURE GRANULOCYTES 0.4 % (0-5); LYMPHOCYTES 10.8 % (15-50); MCH 29.6 pg (26.0-34.0); MCHC 33.9 g/dL (31.0-37.0); MCV 87.5 fL (80.0-100.0); MEAN PLATELET VOLUME 10.8 fL (7.4-10.4); NEUTROPHILS 75.3 % (40-80); PLATELET COUNT 153 10x3/uL (130-400); RBC 5.03 10x6/uL (4.00-5.40); RDW 14.2 % (11.5-14.5); WBC 7.2 10x3/uL (4.8-10.8)
[2018-02-17 14:47] LABS: ALBUMIN 2.6 g/dL (3.4-5.0); ANION GAP 14.2 mmol/L (8-16); BILIRUBIN - TOTAL 0.33 mg/dL (0.2-1.3); CALCIUM 8.8 mg/dL (8.5-10.1); CARBON DIOXIDE 25.4 mmol/L (21.0-32.0); CREATININE - SERUM 0.9 mg/dL (0.6-1.3); POTASSIUM - SERUM 3.6 mmol/L (3.5-5.1); PROTEIN - SERUM 6.7 g/dL (6.4-8.2)
[2018-02-17 15:09] VITALS: BP 113/81; Ht 167.6 cm; Wt 70.0 kg
[2018-02-17 16:55] VITALS: BP 122/83
[2018-02-17] MEDS ORDERED: GABAPENTIN100 MG PO (19:50)
[2018-02-17 20:00] VITALS: BP 126/74
[2018-02-18 05:00] VITALS: BP 124/82
[2018-02-18 06:25] LABS: BASOPHILS 0.1 % (0-2); EOSINOPHILS 0 % (0-7); HEMATOCRIT 42.9 % (36.0-48.0); HEMOGLOBIN 14.4 g/dL (12-16); IMMATURE GRANULOCYTES 0.1 % (0-5); LYMPHOCYTES 7.3 % (15-50); MCHC 33.6 g/dL (31.0-37.0); MCV 86.5 fL (80.0-100.0); MEAN PLATELET VOLUME 11.1 fL (7.4-10.4); MONOCYTES 1.5 % (2-11); PLATELET COUNT 162 10x3/uL (130-400); RBC 4.96 10x6/uL (4.00-5.40); RDW 14.3 % (11.5-14.5); WBC 7.1 10x3/uL (4.8-10.8)
[2018-02-18 07:32] LABS: ERYTHROCYTE SEDIMENTATION RATE 21 mm/hr (0-30)
[2018-02-18 07:57] LABS: C-REACTIVE PROTEIN 1.2 mg/dL (0.0-0.9); CALC OSMOLALITY 285 mosm/kg (275-300); CALCIUM 8.5 mg/dL (8.5-10.1); CARBON DIOXIDE 22.2 mmol/L (21.0-32.0); CHLORIDE - SERUM 108 mmol/L (98-107); CREATINE KINASE 138 UL (21-215); CREATININE - SERUM 0.7 mg/dL (0.6-1.3); GLUCOSE 114 mg/dL (74-106); POTASSIUM - SERUM 4.1 mmol/L (3.5-5.1); SODIUM 142 mmol/L (136-145); UREA NITROGEN 17 mg/dL (7-18); eGFR NON AFRICAN AMERICAN 88 mL/min (90-120)
[2018-02-18 08:51] VITALS: BP 134/86
[2018-02-18 14:50] VITALS: BP 140/89
[2018-02-18 16:48] VITALS: BP 134/84
[2018-02-18 21:13] VITALS: BP 120/67
[2018-02-19] VITALS (9 sets, daily range): BP systolic 111–134; BP diastolic 46–82
[2018-02-19 06:47] LABS: BASOPHILS 0 % (0-2); EOSINOPHILS 0 % (0-7); HEMATOCRIT 41.5 % (36.0-48.0); HEMOGLOBIN 13.8 g/dL (12-16); IMMATURE GRANULOCYTES 0.4 % (0-5); LYMPHOCYTES 5.7 % (15-50); MCH 29.1 pg (26.0-34.0); MCHC 33.3 g/dL (31.0-37.0); MCV 87.6 fL (80.0-100.0); MEAN PLATELET VOLUME 10.9 fL (7.4-10.4); MONOCYTES 2.6 % (2-11); NEUTROPHILS 91.3 % (40-80); PLATELET COUNT 159 10x3/uL (130-400); RBC 4.74 10x6/uL (4.00-5.40); RDW 14.3 % (11.5-14.5)
[2018-02-19 06:50] LABS: WBC 12.5 10x3/uL (4.8-10.8)
[2018-02-19 06:58] LABS: INR 1.01 (0.85-1.17); PROTIME 12.9 SECONDS (11.6-15.0)
[2018-02-19 06:59] LABS: CALC OSMOLALITY 284 mosm/kg (275-300); CALCIUM 8.7 mg/dL (8.5-10.1); CARBON DIOXIDE 21.5 mmol/L (21.0-32.0); CHLORIDE - SERUM 109 mmol/L (98-107); CREATININE - SERUM 0.6 mg/dL (0.6-1.3); GLUCOSE 137 mg/dL (74-106); SODIUM 141 mmol/L (136-145); UREA NITROGEN 18 mg/dL (7-18); eGFR NON AFRICAN AMERICAN > 90 mL/min (90-120)
[2018-02-20 05:00] VITALS: BP 148/78
[2018-02-20 05:06] LABS: BASOPHILS 0 % (0-2); EOSINOPHILS 0 % (0-7); HEMATOCRIT 40.7 % (36.0-48.0); HEMOGLOBIN 13.6 g/dL (12-16); IMMATURE GRANULOCYTES 0.5 % (0-5); LYMPHOCYTES 5.3 % (15-50); MCH 29.2 pg (26.0-34.0); MCHC 33.4 g/dL (31.0-37.0); MCV 87.5 fL (80.0-100.0); MEAN PLATELET VOLUME 10.4 fL (7.4-10.4); MONOCYTES 3.8 % (2-11); NEUTROPHILS 90.4 % (40-80); PLATELET COUNT 155 10x3/uL (130-400); RBC 4.65 10x6/uL (4.00-5.40); RDW 14.4 % (11.5-14.5); WBC 10.7 10x3/uL (4.8-10.8)
[2018-02-20 05:22] LABS: CALC OSMOLALITY 287 mosm/kg (275-300); CALCIUM 8.4 mg/dL (8.5-10.1); CARBON DIOXIDE 23.5 mmol/L (21.0-32.0); CHLORIDE - SERUM 110 mmol/L (98-107); CREATININE - SERUM 0.7 mg/dL (0.6-1.3); GLUCOSE 131 mg/dL (74-106); POTASSIUM - SERUM 4.2 mmol/L (3.5-5.1); SODIUM 143 mmol/L (136-145); UREA NITROGEN 16 mg/dL (7-18); eGFR NON AFRICAN AMERICAN 88 mL/min (90-120)
[2018-02-20 08:35] VITALS: BP 149/80
[2018-02-20 13:48] VITALS: BP 148/84
[2018-02-20 16:16] LABS: ACID FAST SMEAR Negative (()); AFB SPECIMEN PROCESSING Concentration (())
[2018-02-20 17:53] VITALS: BP 126/77
[2018-02-20 20:00] VITALS: BP 136/76
[2018-02-21 04:00] VITALS: BP 135/77
[2018-02-21 05:46] LABS: BASOPHILS 0 % (0-2); EOSINOPHILS 0 % (0-7); HEMATOCRIT 41.9 % (36.0-48.0); HEMOGLOBIN 13.8 g/dL (12-16); IMMATURE GRANULOCYTES 0.7 % (0-5); LYMPHOCYTES 5.1 % (15-50); MCH 29.1 pg (26.0-34.0); MCHC 32.9 g/dL (31.0-37.0); MCV 88.4 fL (80.0-100.0); MEAN PLATELET VOLUME 10.2 fL (7.4-10.4); MONOCYTES 5.1 % (2-11); NEUTROPHILS 89.1 % (40-80); PLATELET COUNT 164 10x3/uL (130-400); RBC 4.74 10x6/uL (4.00-5.40); RDW 14.2 % (11.5-14.5); WBC 11.5 10x3/uL (4.8-10.8)
[2018-02-21 05:59] LABS: CALC OSMOLALITY 284 mosm/kg (275-300); CALCIUM 7.9 mg/dL (8.5-10.1); CARBON DIOXIDE 24.4 mmol/L (21.0-32.0); CHLORIDE - SERUM 108 mmol/L (98-107); CREATININE - SERUM 0.7 mg/dL (0.6-1.3); GLUCOSE 138 mg/dL (74-106); SODIUM 141 mmol/L (136-145); UREA NITROGEN 18 mg/dL (7-18); eGFR NON AFRICAN AMERICAN 88 mL/min (90-120)
[2018-02-21 08:34] VITALS: BP 153/79
[2018-02-21] MEDS ORDERED: LEVOFLOXACIN500 MG PO (09:26)
[2018-02-21] MEDS ORDERED: PREDNISONE20 MG PO (09:28)
[2018-02-21] MEDS ORDERED: IMURAN50 MG PO (09:30)
[2018-02-21 12:22] VITALS: BP 140/86
[2018-02-21 13:20] LABS: FUNGUS STAIN Final report (())
[2018-03-19 12:17] LABS: FUNGUS MYCOLOGY CULTURE Final report (())
== END 2018-02-21 12:42 | disposition home or self-care (01) | DRG 545 ==
LOC: D.MS 13:39
PROVIDERS: Family Medicine; Internal Medicine Pulmonary Disease
PROC: 0B968ZZ Drainage of Right Lower Lobe Bronchus, Via Natural or Artificial Opening Endoscopic (ICD-10-PCS; 2018-02-19)
PROC: 0B9B8ZZ Drainage of Left Lower Lobe Bronchus, Via Natural or Artificial Opening Endoscopic (ICD-10-PCS; principal; 2018-02-19 10:54)
DX: M33.21 Polymyositis with respiratory involvement (principal); J96.01 Acute respiratory failure with hypoxia; I50.30 Unspecified diastolic (congestive) heart failure; N39.0 Urinary tract infection, site not specified; M32.9 Systemic lupus erythematosus, unspecified; J47.9 Bronchiectasis, uncomplicated; D69.6 Thrombocytopenia, unspecified; M81.0 Age-related osteoporosis without current pathological fracture; E03.9 Hypothyroidism, unspecified; F32.9 Major depressive disorder, single episode, unspecified; E78.00 Pure hypercholesterolemia, unspecified; K21.9 Gastro-esophageal reflux disease without esophagitis; E55.9 Vitamin D deficiency, unspecified; Z95.0 Presence of cardiac pacemaker; J84.17 Other interstitial pulmonary diseases with fibrosis in diseases classified elsewhere; B96.1 Klebsiella pneumoniae [K. pneumoniae] as the cause of diseases classified elsewhere; J30.9 Allergic rhinitis, unspecified

== ENCOUNTER → 2018-04-24 13:45 | Outpatient (CLI) | payer MEDICARE, OTHER ==
[~2018-04-24 13:45] MED LIST changes: +GABAPENTIN100 MG PO; +LEVOFLOXACIN500 MG PO; +PREDNISONE20 MG PO
== END | disposition home or self-care (01) ==
LOC: D.RT 13:45
DX: J84.9 Interstitial pulmonary disease, unspecified (principal)

== ENCOUNTER → 2018-09-02 07:57 | Outpatient (CLI) | payer MEDICARE, OTHER ==
[2018-09-02 08:54] LABS: CREATININE - SERUM 0.8 mg/dL (0.6-1.3)
== END | disposition home or self-care (01) ==
LOC: D.CT 07:57
PROVIDERS: ATTEND Internal Medicine Pulmonary Disease
DX: J98.4 Other disorders of lung (principal)

== ENCOUNTER → 2018-09-22 10:21 | Outpatient (CLI) | payer MEDICARE, OTHER ==
--- NOTE | 2018-09-26 09:40 | ST ---
PATIENT:MATTEO GANNON MEDICAL RECORD: [id number] SEX: F LOCATION:[facility] ORDER #: ADMISSION DATE: 09/22/18 AGE OF PATIENT: 68 REFERRING PHYSICIAN: INTERPRETING PHYSICIAN: RODO URBANO MD DATE OF SERVICE: 09/22/2018 PROCEDURE: Nuclear stress test. INDICATION: Angina, shortness of breath, hypertension and COPD. TECHNIQUE: She was exercised on standard Lexiscan protocol with 32 mCi of sestamibi injected at peak stress, 10 mCi used previously for rest images. FINDINGS: Gated SPECT reveals preserved ejection fraction at 60% with good wall motion and thickening and brightening throughout all segments. SPECT imaging Cardiolite was used as myocardial fusion agent. There is homogeneous uptake throughout all segments at rest and stress with no evidence of inducible ischemia or previous infarction. OVERALL IMPRESSION: 1. This is a normal nuclear stress test with no evidence of inducible ischemia or previous infarction. 2. Gated SPECT reveals a preserved ejection fraction at 60%. In this patient with ongoing symptomatology, the current scan does not suggest the presence of hemodynamically significant coronary artery disease. Evaluate noncardiac etiology of chest pain. TRANSINT:[id number] Voice Confirmation ID: [id number] DOCUMENT ID: [id number] RODO URBANO MD at 0940 CC: MUNIRA ORTIZ MD [id number] DICTATION DATE: 09/23/18 1015 BUSINESS TECHNOLOGY ARCHITECT: 09/23/18 2308 DEP CLI 09/22/18 [id number] [place] [address]
== END | disposition home or self-care (01) ==
LOC: D.HCCARDIO 10:21
PROVIDERS: ATTEND Internal Medicine Interventional Cardiology
DX: I20.9 Angina pectoris, unspecified (principal)

== ENCOUNTER → 2018-11-18 12:37 | Outpatient (CLI) | payer MEDICARE, OTHER | END | disposition home or self-care (01) | LOC: D.CT 12:37 | PROVIDERS: ATTEND Internal Medicine Rheumatology | DX: M54.5 Low back pain (principal); R53.1 Weakness ==

== ENCOUNTER → 2019-01-15 12:22 | Outpatient (CLI) | payer MEDICARE, OTHER ==
--- NOTE | 2019-01-15 15:03 | NUR ---
PTS TIME OUT FOR LUMBAR MYELOGRAM WAS AT 1415 HRS
== END | disposition home or self-care (01) ==
LOC: D.RAD 12:22
PROVIDERS: ATTEND Internal Medicine Rheumatology
DX: M54.5 Low back pain (principal); M79.604 Pain in right leg; M79.605 Pain in left leg

== ENCOUNTER → 2019-01-29 10:37 | Outpatient (CLI) | payer MEDICARE, OTHER | END | disposition home or self-care (01) | LOC: D.RT 10:37 | PROVIDERS: ATTEND Internal Medicine Pulmonary Disease | DX: J84.9 Interstitial pulmonary disease, unspecified (principal) ==

== ENCOUNTER → 2019-10-12 12:28 | Outpatient (CLI) | payer MEDICARE, OTHER | END | disposition home or self-care (01) | LOC: D.LAB 12:28 | PROVIDERS: ATTEND Internal Medicine Pulmonary Disease | DX: Z11.59 Encounter for screening for other viral diseases (principal) ==

== ENCOUNTER → 2019-10-13 08:45 | Outpatient (CLI) | payer MEDICARE, OTHER | END | disposition home or self-care (01) | LOC: D.CT 07-13 13:00 → D.RT 07-13 13:00 → D.CT 07-13 14:00 → D.RT 08:45 | PROVIDERS: ATTEND Internal Medicine Pulmonary Disease | DX: J84.9 Interstitial pulmonary disease, unspecified (principal) ==

== ENCOUNTER 2019-10-28 08:20 | Day surgery (SDC) | payer MEDICARE, OTHER ==
--- NOTE | 2019-10-27 13:55 | NUR ---
POX-96% RA, HR- 78, RR- 16, BP LA-99/65 STATES BP HAS BEEN RUNNING LOW LATELY
[2019-10-27 14:13] LABS: HEMATOCRIT 47.7 % (36.0-48.0); HEMOGLOBIN 14.7 g/dL (12-16); MCH 27.6 pg (26.0-34.0); MCHC 30.8 g/dL (31.0-37.0); MCV 89.5 fL (80.0-100.0); MEAN PLATELET VOLUME 11.1 fL (7.4-10.4); RBC 5.33 10x6/uL (4.00-5.40); RDW 15.9 % (11.5-14.5)
[2019-10-27 14:28] LABS: CALCIUM 8.6 mg/dL (8.5-10.1); CARBON DIOXIDE 25.2 mmol/L (21.0-32.0); CREATININE - SERUM 1.2 mg/dL (0.6-1.3); POTASSIUM - SERUM 4.2 mmol/L (3.5-5.1)
[~2019-10-28] VITALS: Ht 167.6 cm; Wt 75.8 kg
--- NOTE | ~2019-10-28 | OP ---
PATIENT NAME: MATTEO GANNON MEDICAL RECORD: [id number] :[birth year] LOCATION:D.OPS ADMISSION DATE: SURGEON: HUNTER AMAYA MD DATE OF OPERATION: 10/28/2019 DATE OF SERVICE: 10/28/2019 PREOPERATIVE DIAGNOSES: Lumbar spinal stenosis and foraminal stenosis L2-L3 right with disk herniation L2-L3 right. POSTOPERATIVE DIAGNOSES: Lumbar spinal stenosis and foraminal stenosis L2-L3 right with disk herniation L2-L3 right. SURGEON: Hunter Amaya MD PROCEDURE: Right L2-L3 lumbar laminectomy, medial facetectomy and foraminotomy with discectomy with METRx retractor. DESCRIPTION AND TECHNIQUE: After induction of general endotracheal anesthesia, the patient was rolled prone on a Rodríguez frame. Lumbar spine was prepped and draped in usual sterile fashion. Fluoroscopic x-ray and spinal needle localized the L2-L3 interspace on the right side. Next, Midas-Shawn drill and microscope used to perform a laminectomy, medial facetectomy, and foraminotomy L2-L3 on the right. Hypertrophied ligamentum flavum was removed with Cloward rongeurs. This decompressed the L2 and L3 nerve roots on the right side. A disk herniation was encountered in the axilla at L3 nerve root. This was removed with pituitary rongeurs and curettes. Additional disk material was removed from the disk space. Following this, the L2 and L3 nerve roots were decompressed well. Meticulous hemostasis was maintained throughout the wound. The wound was irrigated with copious amounts of Ancef irrigant solution. The fascia was closed with 2-0 Vicryl suture, the subdermal layer was closed with 3-0 Vicryl suture. The skin was closed with casey. A sterile dressing was applied to the wound. The patient was awakened in good condition and taken to recovery. All counts were reported as correct. Estimated blood loss was minimal. TRANSINT:[id number] Voice Confirmation ID: [id number] DOCUMENT ID: [id number] HUNTER AMAYA MD CC: [id number] DICTATION DATE: 11/04/191820 REGISTERED PHARMACY TECHNICIAN: 11/05/19 0206 [facility] 10/28/19 [facility] [address] [place] [address]
[~2019-10-28 08:20] MED LIST changes: +ATARAX 25 MG TA25 MG PO; +BACTRIM 400-801 TAB PO; +BETAPACE 80 MG80 MG PO; +CALCIUM 250+D T1 TAB PO; +DIFLUCAN50 MG PO; +HYDROXYCHLOROQ200 MG PO; +MYFORTIC180 MG PO; +VITAMIN D1000 UNIT PO; -VITAMIN D2000 UNIT PO; +VITAMIN D5000 UNI1 PO
[2019-10-28 09:00] VITALS: BP 121/70; Ht 167.6 cm; Wt 75.8 kg
[2019-10-28] MEDS ORDERED: HYDROCODON-ACE1 EA10 PO (12:38)
[2019-10-28] MEDS ORDERED: MEDROL DOSE PACK4 MG PO (12:39)
--- NOTE | 2019-10-28 15:54 | NUR ---
1530 IV REMNOVED AND PRESSURE HELD. INSTRUCTIONS AN RX GIVEN. DR PETERS OFFICE CALLED TO CLARIFY MEDROL PACK ORDERED AND PTS DAILY HOME MEDS OF PREDNISONE 30MG PO DAILY
--- NOTE | 2019-10-28 15:56 | NUR ---
1545 PT VOIDED PRIOR TO D/C
== END 2019-10-28 15:56 | disposition home or self-care (01) ==
LOC: D.OPS 08:20 → D.PAN 10-29 07:30 → D.OPS 10-29 09:00
PROVIDERS: Anesthesiology; ATTEND Neurological Surgery
DX: M48.061 Spinal stenosis, lumbar region without neurogenic claudication (principal); M51.26 Other intervertebral disc displacement, lumbar region; E03.9 Hypothyroidism, unspecified; K21.9 Gastro-esophageal reflux disease without esophagitis; J84.9 Interstitial pulmonary disease, unspecified; R94.2 Abnormal results of pulmonary function studies; J98.4 Other disorders of lung; J30.9 Allergic rhinitis, unspecified; M32.9 Systemic lupus erythematosus, unspecified; M33.20 Polymyositis, organ involvement unspecified; M81.0 Age-related osteoporosis without current pathological fracture

== ENCOUNTER → 2019-11-30 11:28 | Outpatient (CLI) | payer MEDICARE, OTHER ==
[2019-10-28 09:00] VITALS: BMI 27.0
[~2019-11-30 11:28] MED LIST changes: +HYDROCODON-ACE1 EA10 PO; +LASIX40 MG PO; +MEDROL DOSE PACK4 MG PO
== END | disposition home or self-care (01) ==
LOC: D.RAD 11:28
PROVIDERS: ATTEND Internal Medicine Pulmonary Disease
DX: R06.00 Dyspnea, unspecified (principal)

== ENCOUNTER 2019-11-30 12:43 | Emergency (ER) | payer MEDICARE, OTHER ==
[~2019-11-30] VITALS: Ht 167.6 cm; Wt 77.3 kg
[~2019-11-30 12:43] MED LIST changes: -LASIX40 MG PO
[2019-11-30 12:53] VITALS: Ht 167.6 cm; Wt 77.3 kg
[2019-11-30 13:42] LABS: CALC OSMOLALITY 284 mosm/kg (275-300); CALCIUM 8.6 mg/dL (8.5-10.1); CARBON DIOXIDE 24.3 mmol/L (21.0-32.0); CHLORIDE - SERUM 107 mmol/L (98-107); CREATININE - SERUM 0.7 mg/dL (0.6-1.3); GLUCOSE 105 mg/dL (74-106); POTASSIUM - SERUM 3.5 mmol/L (3.5-5.1); SODIUM 141 mmol/L (136-145); UREA NITROGEN 23 mg/dL (7-18); eGFR NON AFRICAN AMERICAN 88 mL/min (90-120)
[2019-11-30 13:54] LABS: BASOPHILS 0.1 % (0-2); EOSINOPHILS 0.3 % (0-7); HEMATOCRIT 40.8 % (36.0-48.0); HEMOGLOBIN 12.5 g/dL (12-16); IMMATURE GRANULOCYTES 2.1 % (0-5); LYMPHOCYTES 4.9 % (15-50); MCH 27.7 pg (26.0-34.0); MCHC 30.6 g/dL (31.0-37.0); MCV 90.3 fL (80.0-100.0); MEAN PLATELET VOLUME 9.8 fL (7.4-10.4); MONOCYTES 3.7 % (2-11); NEUTROPHILS 88.9 % (40-80); PLATELET COUNT 154 10x3/uL (130-400); RBC 4.52 10x6/uL (4.00-5.40); RDW 15.7 % (11.5-14.5); WBC 14.7 10x3/uL (4.8-10.8)
[2019-11-30 13:55] LABS: INR 1.01 (0.85-1.17); PROTIME 13.3 SECONDS (11.6-15.0)
[2019-11-30 13:57] LABS: ALBUMIN 2.5 g/dL (3.4-5.0); ALKALINE PHOSPHATASE 72 U/L (30-120); ALT (SGPT) 32 U/L (10-68); CKMB 2.7 U/L (0.0-3.6); CREATINE KINASE 35 UL (21-215); PRO BNP 2962 pg/mL (0-125); PROTEIN - SERUM 6.1 g/dL (6.4-8.2); TROPONIN-I 0.025 ng/mL (0.000-0.060)
[2019-11-30] MEDS ORDERED: LASIX40 MG PO (14:28)
[2019-11-30 15:05] VITALS: BP 122/87
== END 2019-11-30 15:05 | disposition home or self-care (01) ==
LOC: D.ER 12:43
PROVIDERS: Family Medicine
DX: I50.9 Heart failure, unspecified (principal); R06.00 Dyspnea, unspecified; D72.829 Elevated white blood cell count, unspecified; J84.9 Interstitial pulmonary disease, unspecified; Z99.81 Dependence on supplemental oxygen; G62.9 Polyneuropathy, unspecified; K21.9 Gastro-esophageal reflux disease without esophagitis

== ENCOUNTER 2019-12-03 09:39 | Inpatient (IN) | payer MEDICARE, OTHER ==
[2019-12-03] VITALS (12 sets, daily range): BP systolic 121–145; BP diastolic 78–106
[~2019-12-03] VITALS: Ht 167.6 cm; Wt 75.1 kg
--- NOTE | ~2019-12-03 | EC ---
PATIENT:MATTEO GANNON DATE OF SERVICE: 12/03/19 SEX: F MEDICAL RECORD: [id number] DATE OF : [birth year] LOCATION:[facility] D231 AGE OF PATIENT: 69 ADMISSION DATE: 12/03/19 REFERRING PHYSICIAN: INTERPRETING PHYSICIAN: MARIA ISABEL PALUMBO MD ECHOCARDIOGRAM REPORT ECHO CHARGES 4 ECHO COMPLETE Date: 12/04/19 CLINICAL DIAGNOSIS: CP ECHOCARDIOGRAPHIC MEASUREMENTS (adult normal given) AC root (d.<3.7cm) 3.3 cm LV Septum d (<1.2 cm> 1.5 cm Valve Excursion 1.7 cm LV Septum (systole) 2.1 cm Left Atria (s.<4.0cm> 3.2 cm LVPW d(<1.2cm) 0.8 cm RV (d.<2.3cm) 2.4 cm LVPW (sytole) 1.0 cm LV diastole(<5.6CM) 4.8 cm MV E-F(>70mm/sec) cm LV systole 3.6 cm LVOT Diameter 1.9 cm MV exc.(>10mm) cm Est.ejection fraction (50-75%) % DOPPLER: LVIT cm/sec A 56 cm/sec E 37 cm/sec LA cm/sec RVSP 37.7 mmHg LVOT 62 cm/sec AOP1/2T m/s Asc. Ao 103 cm/sec RVOT 53 cm/sec RA cm/sec PA 52 cm/sec AV Gradient Peak 4.2 mmHg AV Mean 2.0 mmHg AV Area 1.9 cm MV Gradient Peak 3.6 mmHg MV Mean 1.3 mmHg MV Area cm COMMENTS: Medical Billing Coordinator: Kim HARRELL Paperhanger Contractor: 4 Dr. Palumbo TAPE# PACS Pericardial Effusion N DATE OF SERVICE: PROCEDURE: Transthoracic echocardiogram. FINDINGS: 1. Left ventricle shows ejection fraction of 50% to 55%. There is evidence of moderate concentric left ventricular hypertrophy. There is evidence of diastolic dysfunction. There is no evidence of regional wall motion abnormalities. 2. Right ventricle shows the possibility of a pacer artifact extending from the ECHOCARDIOGRAM REPORT [id number] MATTEO GANNON right atrium. 3. Left atrium is normal size, shape, structure and function. 4. Mitral valve is normal in structure and function with no significant mitral regurgitation. 5. Tricuspid valve has trace tricuspid regurgitation. The right ventricular systolic pressure is mildly elevated at 37 mmHg. 6. Right ventricle is normal size, shape, structure, and function. 7. The right atrium is normal. 8. Pulmonic valve is normal. 9. There is no significant pericardial effusion. TRANSINT:[id number] Voice Confirmation ID: [id number] DOCUMENT ID: [id number] MARIA ISABEL PALUMBO MD CC: [id number] DICTATION DATE: 12/05/19 1031 DENTURE FINISHER: 12/05/19 1220 ADM IN [id number] [place] [address]
[~2019-12-03 09:39] MED LIST changes: +LASIX40 MG PO
--- NOTE | 2019-12-03 09:58 | NUR ---
NASAL SWAB COLLECTED, LABELED AT BS AND SENT TO LAB
[2019-12-03 10:35] LABS: CALC OSMOLALITY 284 mosm/kg (275-300); CALCIUM 8.4 mg/dL (8.5-10.1); CARBON DIOXIDE 33.3 mmol/L (21.0-32.0); CHLORIDE - SERUM 103 mmol/L (98-107); GLUCOSE 85 mg/dL (74-106); POTASSIUM - SERUM 3.3 mmol/L (3.5-5.1); SODIUM 141 mmol/L (136-145); UREA NITROGEN 26 mg/dL (7-18); eGFR NON AFRICAN AMERICAN 58 mL/min (90-120)
[2019-12-03 10:37] LABS: BASOPHILS 0.2 % (0-2); EOSINOPHILS 1.5 % (0-7); HEMATOCRIT 43.4 % (36.0-48.0); HEMOGLOBIN 13.4 g/dL (12-16); IMMATURE GRANULOCYTES 4.7 % (0-5); LYMPHOCYTES 7.9 % (15-50); MCH 27.6 pg (26.0-34.0); MCHC 30.9 g/dL (31.0-37.0); MCV 89.3 fL (80.0-100.0); MEAN PLATELET VOLUME 10.4 fL (7.4-10.4); MONOCYTES 4.8 % (2-11); NEUTROPHILS 80.9 % (40-80); PLATELET COUNT 154 10x3/uL (130-400); RBC 4.86 10x6/uL (4.00-5.40); RDW 15.4 % (11.5-14.5); WBC 13.1 10x3/uL (4.8-10.8)
[2019-12-03 10:41] LABS: APTT 22.6 SECONDS (22.8-39.4); INR 1.05 (0.85-1.17); PROTIME 13.6 SECONDS (11.6-15.0)
[2019-12-03 10:50] LABS: ALBUMIN 2.5 g/dL (3.4-5.0); ALKALINE PHOSPHATASE 81 U/L (30-120); ALT (SGPT) 29 U/L (10-68); BILIRUBIN - TOTAL 0.76 mg/dL (0.2-1.3); CKMB 2.3 U/L (0.0-3.6); CREATINE KINASE 22 UL (21-215); PRO BNP 1731 pg/mL (0-125); PROTEIN - SERUM 6.3 g/dL (6.4-8.2); TROPONIN-I 0.025 ng/mL (0.000-0.060)
--- NOTE | 2019-12-03 17:07 | NUR ---
PT PLACED ON NC@ 7 LPM SATS DROPPED QUICKLY TO HIGH 70'S WHILE TRYING TO EAT. PLACED BACK ON NON REBREATHER MASK @ 15 PLM. SAT CLIMB BACK UP TO HIGH 80'S SHORTLY AFTER APPLYING MASK.
--- NOTE | 2019-12-03 19:10 | NUR ---
BS REPORT TO CAMMY ARAUJO
[2019-12-04] VITALS (16 sets, daily range): BP systolic 117–152; BP diastolic 81–106; BMI 26.5
--- NOTE | 2019-12-04 01:58 | NUR ---
KANDI STOP TIME NOW 50CC INFUSED
--- NOTE | 2019-12-04 07:15 | NUR ---
ASSUMED CARE OF PT. A/A/OX3. RESTING IN BED WITH NRM ON. DENIES PAIN. FAMILY AT BS. VSS.
[2019-12-04] MEDS ORDERED: PREDNISONE20 MG PO (07:32)
[2019-12-04] MEDS ORDERED: SYNTHROID25 MCG PO (07:34)
[2019-12-04] MEDS ORDERED: ULTRAM50 MG PO (07:39)
--- NOTE | 2019-12-04 07:46 | HP ---
PATIENT: MATTEO GANNON MEDICAL RECORD: [id number] ACCOUNT: [id number] LOCATION:[facility].E11- : [birth year] ADMISSION DATE: 12/03/19 PCP: MUNIRA ORTIZ MD HISTORY AND PHYSICAL EXAMINATION REASON FOR ADMISSION: Cough and shortness of breath. HISTORY OF PRESENT ILLNESS: The patient is a 69-year-old female followed by Dr. Danielle for severe interstitial lung disease. She also has a history of lupus and polymyositis. She was in the ED 2 days ago for increasing shortness of breath. She was felt to have mild fluid overload and was placed on Bumex. She had no fever at that time and had a negative COVID test then. She saw Dr. Ortiz yesterday and he switched her Bumex to a higher dose. Today, she became worse, more shortness of breath, came to the ED with hypoxia. She denies fever. Cough is nonproductive. PAST MEDICAL HISTORY: Severe interstitial lung disease, SLE, polymyositis, interstitial pneumonia in 2016, sick sinus syndrome with pacemaker, diastolic CHF, hypothyroidism, osteopenia, depression, hyperlipidemia, GERD, lumbar disc disease post lumbar laminectomy. 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 HOME MEDICATIONS: Plaquenil 200 mg b.i.d.; prednisone 30 mg a day; Myfortic 180 mg 2 tabs 3 times a day; Atrovent nasal spray 2 squirts in each nostril daily; Protonix 40 mg twice a day; Delsym 2 teaspoons q.12 hours as needed; Septra DS on Saturday, Saturday, and Saturday; Carafate 1 g slurry 3 times daily before meals and at bedtime; Bumex 2 mg p.o. b.i.d.; metoprolol 25 mg one-half tab daily; Synthroid 25 mcg p.o. daily; hydrocodone 10/325 as directed for severe pain; calcium carbonate with vitamin D 500 mg p.o. daily; vitamin B complex 1 daily; sotalol 80 mg p.o. daily; cholecalciferol 50 mcg 1 tablet 3 times a day. She is on Zoloft 50 mg at bedtime. SOCIAL HISTORY: Former smoker. No alcohol or drug abuse. She lives with her . She is retired. She had negative COVID test 2 days ago. PAST SURGICAL HISTORY: Cholecystectomy, hysterectomy, L2-3 lumbar laminectomy and discectomy. ALLERGIES: None known. FAMILY HISTORY: Mother at 76 with breast cancer and AODM. Father at 82, had arthritis and heart disease. REVIEW OF SYSTEMS: CONSTITUTIONAL: She has been fatigued for several days with increasing shortness of breath. Requiring more oxygen than usual. Saying that her sats were down to 69% on 8 L when found by the EMS today. HEENT: No recent visual change, sinus congestion, or sore throat. RESPIRATORY: Increasing cough, congestion, requiring more oxygen. She has had no sputum production. CARDIAC: No palpitations, chest pain, or edema. GASTROINTESTINAL: Denies nausea, vomiting, diarrhea, constipation, change in HISTORY AND PHYSICAL [id number] TERESSA,MATTEO JOSUÉ stools, or blood per rectum. GENITOURINARY: No incontinence. GYNECOLOGIC: No vaginal bleeding. ENDOCRINOLOGIC: Denies polyuria, polydipsia, heat or cold intolerance. NEUROLOGIC: No history of stroke, TIA, vascular headaches, or seizures. INTEGUMENTARY: No rash or itching. PSYCHIATRIC: Denies depressed mood. ALLERGIES: ALBUTEROL CAUSING TACHYCARDIA AND REGLAN CAUSING NAUSEA. PHYSICAL EXAMINATION: VITAL SIGNS: Temperature 97.3, pulse 83 and regular, respirations are 19, blood pressure 134/94 with a sat of 98% on nonrebreather at 100%. GENERAL: Appears chronically ill. She is mildly tachypneic. HEENT: Eyes are clear. Oropharynx is unremarkable. NECK: Supple without bruits. CHEST: Distant breath sounds with fine crackles in the bases on inspiration. No E to A change. HEART: Regular rate and rhythm. ABDOMEN: Soft, nontender. No organomegaly. GENITOURINARY: Deferred. EXTREMITIES: She has 1+ pretibial edema. She has purplish bruising over her upper right ankle. No cyanosis is appreciated. NEUROLOGICAL: Oriented to person, place, and time. Cranial nerves are intact. Gait is not tested due to shortness of breath. LABORATORY DATA: Blood gas shows a pH of 7.4, pCO2 of 37, pO2 of 91 on 100% nonrebreather. Sodium 141, potassium 3.3, BUN is 26, glucose 85. Cardiac enzymes are negative initially. ProBNP is 1731. White count is 13,000 with left shift. H&H are [address] chest PE protocol shows mixed interstitial and alveolar infiltrates seen in the right middle and right upper lobes, cardiac pacing device is noted, small hiatal hernia, small pleural effusion on the right, healing rib fractures on the right and left sides. ASSESSMENT: 1. Multilobar mixed interstitial alveolar infiltrates suggesting pneumonia. 2. Interstitial lung disease. 3. Respiratory failure with hypoxemia. 4. SLE. 5. Polymyositis. 6. Hypokalemia. 7. Hypothyroidism. PLAN: The patient will be admitted for COVID rule out. She will be placed in isolation. If positive, we will start her on dexamethasone, Pulmicort inhaler, broad-spectrum IV antibiotics. Pulmonary consult with Dr. Danielle who knows her well will be obtained. NTS:[id number] Voice Confirmation ID: [id number] DOCUMENT ID: [id number] HISTORY AND PHYSICAL [id number] MATTEO GANNON TIMOTHY MD at 0746 CC: [id number] DICTATION DATE: 12/03/191733 PNEUMATIC TOOL REPAIRER: 12/03/[address] [facility] [address] [id number]
--- NOTE | 2019-12-04 07:51 | NUR ---
BREAKFAST SERVED. ATTEMPTED TO SWITCH PT FROM NRM TO HIGH FLOW NC @ 8 LPM. SATS QUICKLY DROPPED TO 75%. REPLACED NRM @ 15L AND SATS IMPROVED TO 91-92%.
[2019-12-04 08:39] LABS: CALC OSMOLALITY 282 mosm/kg (275-300); CALCIUM 8.1 mg/dL (8.5-10.1); CARBON DIOXIDE 31.4 mmol/L (21.0-32.0); CHLORIDE - SERUM 104 mmol/L (98-107); GLUCOSE 104 mg/dL (74-106); POTASSIUM - SERUM 3.1 mmol/L (3.5-5.1); SODIUM 140 mmol/L (136-145); UREA NITROGEN 25 mg/dL (7-18)
[2019-12-04 08:42] LABS: CREATININE - SERUM 0.6 mg/dL (0.6-1.3); eGFR NON AFRICAN AMERICAN > 90 mL/min (90-120)
[2019-12-04] MEDS ORDERED: MYCOPHENOLIC A360 MG PO (08:56)
[2019-12-04 09:18] LABS: BASOPHILS 0.1 % (0-2); EOSINOPHILS 0.3 % (0-7); HEMATOCRIT 40.9 % (36.0-48.0); HEMOGLOBIN 12.6 g/dL (12-16); IMMATURE GRANULOCYTES 2.3 % (0-5); LYMPHOCYTES 7.1 % (15-50); MCH 27.3 pg (26.0-34.0); MCHC 30.8 g/dL (31.0-37.0); MCV 88.7 fL (80.0-100.0); MEAN PLATELET VOLUME 11.6 fL (7.4-10.4); NEUTROPHILS 85.2 % (40-80); PLATELET COUNT 169 10x3/uL (130-400); RBC 4.61 10x6/uL (4.00-5.40); RDW 15.3 % (11.5-14.5); WBC 14.7 10x3/uL (4.8-10.8)
--- NOTE | 2019-12-04 11:10 | NUR ---
BS REPORT TO CAMMY SWEET
--- NOTE | 2019-12-04 11:30 | NUR ---
CLEANED PT OF URINE AND FECES, LARGE AMOUNT. CHANGED BEDDING AND CLEANED PT AND BED. ZOEY CARE GIVEN AND NEW GOWN PLACED. PT DENIES NEEDS AT THIS TIME.
--- NOTE | 2019-12-04 13:28 | NUR ---
ULTRASOUND IN ROOM
--- NOTE | 2019-12-04 14:00 | NUR ---
ZOSYN INFUSION COMPLETE.
--- NOTE | 2019-12-04 14:10 | NUR ---
CHANGED PT BRIEF. LARGE AMOUNT OF URINE. PERICARE GIVEN TO PT. PLACED PUREWICK AND NEW BRIEF.
--- NOTE | 2019-12-04 15:20 | NUR ---
VANCOMYCIN 1 G INFUSION COMPLETE
--- NOTE | 2019-12-04 18:32 | NUR ---
WAITING TO TRANSPORT PT TO FLOOR ROOM FOR RESPIRATORY THERAPIST TO COME HELP TRANSPORT.
--- NOTE | 2019-12-04 22:40 | NUR ---
1899-PATIENT ARRIVED FROM ER. 2105-PAGED DR. JUÁREZ 2113- SPOKE WITH DR. JUÁREZ ABOUT GABAPENTIN NOT BEING ON MAR BUT PATIENT TAKES AT HOME. NEW ORDER TO CONTINUE. 2199-REFUSED CHG BATH, STATES SHE WANTS TO SLEEP. CHANGED PUREWICK.
[2019-12-05] VITALS (24 sets, daily range): BP systolic 100–151; BP diastolic 73–115; BMI 26.6
[2019-12-05 04:34] LABS: BASOPHILS 0.1 % (0-2); EOSINOPHILS 0 % (0-7); HEMATOCRIT 41.2 % (36.0-48.0); HEMOGLOBIN 12.5 g/dL (12-16); LYMPHOCYTES 3.4 % (15-50); MCH 27.2 pg (26.0-34.0); MCHC 30.3 g/dL (31.0-37.0); MCV 89.8 fL (80.0-100.0); MEAN PLATELET VOLUME 10.4 fL (7.4-10.4); MONOCYTES 3.1 % (2-11); NEUTROPHILS 89.4 % (40-80); PLATELET COUNT 168 10x3/uL (130-400); RBC 4.59 10x6/uL (4.00-5.40)
[2019-12-05 04:44] LABS: CALC OSMOLALITY 283 mosm/kg (275-300); CALCIUM 8.3 mg/dL (8.5-10.1); CHLORIDE - SERUM 103 mmol/L (98-107); GLUCOSE 132 mg/dL (74-106); POTASSIUM - SERUM 3.9 mmol/L (3.5-5.1); SODIUM 139 mmol/L (136-145); UREA NITROGEN 25 mg/dL (7-18); eGFR NON AFRICAN AMERICAN 75 mL/min (90-120)
[2019-12-05 04:46] LABS: CREATININE - SERUM 0.8 mg/dL (0.6-1.3)
--- NOTE | 2019-12-05 06:39 | NUR ---
HARDLY URINE OUTPUT WITH PUREWICK. GARCIA CATHETER INSERTED AND IMMEDIATE 700 ML URINE OUTPUT.
[2019-12-05 06:53] LABS: PHOSPHOROUS 3.6 mg/dL (2.5-4.9)
[2019-12-06] VITALS (21 sets, daily range): BP systolic 100–148; BP diastolic 55–104
[2019-12-06 06:34] LABS: BASOPHILS 0.1 % (0-2); EOSINOPHILS 0 % (0-7); HEMATOCRIT 40.7 % (36.0-48.0); HEMOGLOBIN 12.4 g/dL (12-16); IMMATURE GRANULOCYTES 3.3 % (0-5); MCH 26.7 pg (26.0-34.0); MCHC 30.5 g/dL (31.0-37.0); MEAN PLATELET VOLUME 11.5 fL (7.4-10.4); MONOCYTES 4.3 % (2-11); NEUTROPHILS 88.3 % (40-80); RBC 4.64 10x6/uL (4.00-5.40); RDW 15.1 % (11.5-14.5)
[2019-12-06 06:36] LABS: MCV 87.7 fL (80.0-100.0); PLATELET COUNT 215 10x3/uL (130-400)
[2019-12-06 06:48] LABS: C-REACTIVE PROTEIN 3.8 mg/dL (0.0-0.9); CALC OSMOLALITY 280 mosm/kg (275-300); CALCIUM 8.2 mg/dL (8.5-10.1); CARBON DIOXIDE 26.7 mmol/L (21.0-32.0); CHLORIDE - SERUM 102 mmol/L (98-107); CREATININE - SERUM 0.8 mg/dL (0.6-1.3); GLUCOSE 119 mg/dL (74-106); MAGNESIUM - SERUM 2.1 mg/dL (1.8-2.4); PHOSPHOROUS 4.2 mg/dL (2.5-4.9); POTASSIUM - SERUM 3.7 mmol/L (3.5-5.1); SODIUM 137 mmol/L (136-145); UREA NITROGEN 29 mg/dL (7-18); eGFR NON AFRICAN AMERICAN 75 mL/min (90-120)
--- NOTE | 2019-12-06 07:05 | NUR ---
LEFT FOREARM PIV LEAKING. REMOVED WITH TIP INTACTED. PIV STARTED TO RIGHT FOREARM 20 G.
[2019-12-06 09:02] LABS: ERYTHROCYTE SEDIMENTATION RATE 14 mm/hr (0-30)
--- NOTE | 2019-12-06 19:31 | NUR ---
REQUESTS PRN PAIN MEDICATION (APAP) WITH BEDTIME MEDICATIONS.
[2019-12-07 03:00] VITALS: BP 117/71
[2019-12-07 04:55] LABS: BASOPHILS 0.2 % (0-2); EOSINOPHILS 0.1 % (0-7); HEMATOCRIT 40.1 % (36.0-48.0); HEMOGLOBIN 12.4 g/dL (12-16); IMMATURE GRANULOCYTES 4.7 % (0-5); MCH 27.1 pg (26.0-34.0); MCHC 30.9 g/dL (31.0-37.0); MCV 87.6 fL (80.0-100.0); MEAN PLATELET VOLUME 10.6 fL (7.4-10.4); PLATELET COUNT 222 10x3/uL (130-400); RBC 4.58 10x6/uL (4.00-5.40); RDW 14.8 % (11.5-14.5); WBC 12.9 10x3/uL (4.8-10.8)
[2019-12-07 05:18] LABS: ANION GAP 10.7 mmol/L (8-16); CALCIUM 8.1 mg/dL (8.5-10.1); CARBON DIOXIDE 29.5 mmol/L (21.0-32.0); POTASSIUM - SERUM 3.2 mmol/L (3.5-5.1)
[2019-12-07 07:00] VITALS: BP 132/91
--- NOTE | 2019-12-07 09:28 | NUR ---
9014 LARGE LIQUID BM NOTED CHG BATH COMPLETED
--- NOTE | 2019-12-07 09:29 | NUR ---
0930 REFUSES TO TALE ANY MORE CARAFATE
--- NOTE | 2019-12-07 10:22 | NUR ---
Nutrition follow-up: Pt eating breakfast; reports poor appetite for the last 2 months PO intake ~50% of breakfast Wt stable Pt states swallowing issues and says she is supposed to have swallow evaluated Wt: 165# RDN following.
[2019-12-07 17:37] VITALS: BP 129/80
--- NOTE | 2019-12-07 20:39 | NUR ---
ADMINISTERED PAIN MED PER PATIENT REQUEST. PATIENT DENIES OTHER NEEDS AT THIS TIME. BED IN LOWEST POSITION AND CALL LIGHT WITHIN REACH. ENCOURAGED THE PATIENT TO CALL IF SHE HAS NEEDS. WILL CONTINUE TO MONITOR.
[2019-12-07 22:03] VITALS: BP 112/69
[2019-12-08] VITALS: BP 122/73
[2019-12-08 04:00] VITALS: BP 124/84
[2019-12-08 07:22] LABS: HEMATOCRIT 39.5 % (36.0-48.0); HEMOGLOBIN 12.1 g/dL (12-16); MCH 26.9 pg (26.0-34.0); MCHC 30.6 g/dL (31.0-37.0); MCV 87.8 fL (80.0-100.0); MEAN PLATELET VOLUME 10.6 fL (7.4-10.4); PLATELET COUNT 248 10x3/uL (130-400); RDW 14.9 % (11.5-14.5)
[2019-12-08 07:26] LABS: WBC 16.5 10x3/uL (4.8-10.8)
[2019-12-08 07:32] LABS: CALC OSMOLALITY 278 mosm/kg (275-300); CHLORIDE - SERUM 104 mmol/L (98-107); CREATININE - SERUM 0.8 mg/dL (0.6-1.3); GLUCOSE 112 mg/dL (74-106); POTASSIUM - SERUM 3.5 mmol/L (3.5-5.1); SODIUM 137 mmol/L (136-145); UREA NITROGEN 25 mg/dL (7-18); eGFR NON AFRICAN AMERICAN 75 mL/min (90-120)
[2019-12-08 11:03] VITALS: BP 126/75
[2019-12-08 11:53] LABS: LYMPHOCYTES 18 % (15-50); MONOCYTES 13 % (2-11); NEUTROPHILS 69 % (40-80); PLATELET ESTIMATE NORMAL
--- NOTE | 2019-12-08 14:42 | NUR ---
Nutrition follow-up: Pt just out of ICU visited with pt during breakfast Pt with poor to fair po intake 2/2 breathing issues Labs reviewed Wt: 165# Will offer nutritional supplement; provide food choices and honor food peferences. RDN following.
[2019-12-08 15:00] VITALS: BP 126/78
[2019-12-08 15:15] VITALS: BP 141/89
[2019-12-08 18:26] VITALS: Ht 167.6 cm; Wt 75.1 kg
[2019-12-08 20:00] VITALS: BP 124/70
[2019-12-09 04:00] VITALS: BP 116/76
[2019-12-09 06:39] LABS: BASOPHILS 0.3 % (0-2); EOSINOPHILS 0.4 % (0-7); HEMATOCRIT 42.4 % (36.0-48.0); HEMOGLOBIN 13.3 g/dL (12-16); IMMATURE GRANULOCYTES 8.8 % (0-5); MCH 27.4 pg (26.0-34.0); MCHC 31.4 g/dL (31.0-37.0); MCV 87.2 fL (80.0-100.0); MEAN PLATELET VOLUME 11.5 fL (7.4-10.4); MONOCYTES 6.2 % (2-11); NEUTROPHILS 77.3 % (40-80); PLATELET COUNT 295 10x3/uL (130-400); RBC 4.86 10x6/uL (4.00-5.40); RDW 15.1 % (11.5-14.5); WBC 19.1 10x3/uL (4.8-10.8)
--- NOTE | 2019-12-09 06:45 | NUR ---
A&O RESTING IN BED WITH EYES OPEN. NO C/O PAIN. NO S/S OF ACUTE DISTRESS NOTED. BEDREST. GARCIA CATHETER PRESENT. INCONTINENT OF BOWEL. ON VAPORTHERM 40%. IV TO RIGHT FOREARM, NS INFUSING @ KVO. SITE PATENT WITHOUT REDNESS OR SWELLING. PACEMAKER PRESENT TO LEFT CHEST. DENIES ANY NEEDS AT THIS TIME. CALL LIGHT IN REACH. WILL CONTINUE TO MONITOR.
[2019-12-09 06:48] LABS: ANION GAP 11.5 mmol/L (8-16); CALCIUM 8.3 mg/dL (8.5-10.1); CARBON DIOXIDE 25.3 mmol/L (21.0-32.0); CREATININE - SERUM 0.9 mg/dL (0.6-1.3)
[2019-12-09 07:05] LABS: POTASSIUM - SERUM 2.8 mmol/L (3.5-5.1)
--- NOTE | 2019-12-09 07:11 | NUR ---
I have reviewed this patient and I concur with the Shift Assessment completed by the Licensed Practical Nurse today this shift.
--- NOTE | 2019-12-09 07:46 | NUR ---
POTASSIUM 2.8 THIS AM, WILL FOLLOW ELECTROLYTE PROTOCOL.
[2019-12-09 09:58] VITALS: BP 119/74
[2019-12-09 13:33] VITALS: BP 122/71
--- NOTE | 2019-12-09 13:59 | MORECARE ---
CASE MANAGEMENT DISCHARGE SUMMARY PATIENT: MATTEO GANNON UNIT: [id number] ADM DATE: 12/03/19 AGE: 69 : [birth year] SEX: F ROOM/BED: D.2228 AUTHOR: VIOLA MCLEOD PHYSICIAN: REFERRING PHYSICIAN: LO ANGUIANO MD DATE OF SERVICE: 12/09/19 Discharge Plan Patient Name: MATTEO GANNON Facility: [facility]:[place] : 1950 Planned Disposition: Inpatient Rehab Anticipated Discharge Date: Discharge Date: Expected LOS: Initial Reviewer: [email or web address] Initial Review Date: 12/09/2019 Generated: 12/09/19 2:58 pm Comments DCP- Discharge Planning Updated by [id number]: Mair Noriega on 12/09/19 12:[address] Patient Name: MATTEO GANNON Admission Status: ER Accout number: [id number] Admission Date: 12-03-2019 : 1950 Admission Diagnosis:PNEUMONIA, UNSPECIFIED ORGANISM Attending: LO ANGUIANO Current LOS: 6 Anticipated DC Date: Planned Disposition: Inpatient Rehab Primary Insurance: MEDICARE A & B Discharge Planning Comments: CM met with patient at bedside after explaining CM role and obtaining verbal consent. CM discussed availability / needs of home health, REHAB and medical equipment. PATIENT STATES WILL NEED IPRH WHEN MEDICALLY STABLE. SHE IS CURRENTLY ON VAPOTHERM AT 15. [facility] PT WORKED WITH HER TODAY. [facility] SIGNED FOR [facility]. CM WILL FOLLOW AND ASSIST NEEDED. Director Of Ancillary Services: Mari Noriega DCPIA - Discharge Planning Initial Assessment Updated by [id number]: Mari Noriega on 12/09/19 1:51 pm * Is the patient Alert and Oriented? Yes * PCP DIANA * Pharmacy [facility] * Preadmission Environment Home with Family * ADLs Independent * Other Equipment 02,CANE, WALKER WITH [employer] * Community resources currently utilized None * Additional services required to return to the preadmission environment? Yes * Can the patient safely return to the preadmission environment? Yes * Has this patient been hospitalized within the prior 30 days at any hospital? No Patient Name: MATTEO GANNON Page 83764 at 1359 All edits/amendments must be made on the electronic document DICTATION DATE: 12/09/191357 BORDER POLICE: RAJWINDER 12/09/19 135 RPT#: [id number] DC DATE: STATUS: ADM IN [facility] [address] [place] [address] END OF REPORT
--- NOTE | 2019-12-09 15:27 | NUR ---
Rehab Prescreening Consult recieved and the chart has been reviewed. Currently she is on Vapotherm. Rehab will continue to follow her progress with therapy. Tiffanie Arellano RN Clinical Liaison, Rehab
[2019-12-09 18:25] VITALS: BP 113/70
[2019-12-09 20:00] VITALS: BP 110/70
[2019-12-10 04:00] VITALS: BP 127/95
--- NOTE | 2019-12-10 06:45 | NUR ---
A&O RESTING IN BED WITH EYES OPEN. C/O PAIN, PREVIOUS SHIFT NURSE GIVING ULTRAM FOR PAIN. NO S/S OF ACUTE DISTRESS NOTED. ON 40% VAPORTHERM. GARCIA CATHETER PRESENT. BEDREST. IV TO RIGHT FOREARM, NS INFUSING @ KVO. SITE PATENT WITHOUT REDNESS OR SWELLING. DENIES ANY NEEDS AT THIS TIME. CALL LIGHT IN REACH. WILL CONTINUE TO MONITOR.
--- NOTE | 2019-12-10 07:19 | NUR ---
I have reviewed this patient and I concur with the Shift Assessment completed by the Licensed Practical Nurse today this shift.
--- NOTE | 2019-12-10 08:11 | NUR ---
BED CHANGED AND PATIENT CLEANED. INCONTINENT OF STOOL. AT BEDSIDE.
[2019-12-10 08:40] VITALS: BP 118/65
[2019-12-10 12:25] VITALS: BP 101/63
[2019-12-10 16:38] VITALS: BP 108/62
--- NOTE | 2019-12-10 19:30 | NUR ---
PT IN BED, AAO X 3, RESP EVEN AND UNLABORED. NO DISTRESS NOTED, CL IN REACH, SR UP X 2. NO C/O PAIN OR DISCOMFORT NOTED.
--- NOTE | 2019-12-10 19:30 | NUR ---
PT IN BED, AAO X 3, RESP EVEN AND UNLABORED, NO DISTRESS NOTED, CL IN REACH, SR UP X 2.
[2019-12-10 20:00] VITALS: BP 109/61
[2019-12-11] VITALS: BP 112/74
--- NOTE | 2019-12-11 00:37 | NUR ---
I have reviewed this patient and I concur with the Shift Assessment completed by the Licensed Practical Nurse today this shift.
[2019-12-11 04:00] VITALS: BP 144/85
--- NOTE | 2019-12-11 06:45 | NUR ---
A&O RESTING IN BED WITH EYES OPEN. NO C/O PAIN. NO S/S OF ACUTE DISTRESS NOTED. GARCIA CATHETER PRESENT. PACEMAKER. INCONTINENT OF BOWEL AT TIMES. ON 5L HIGHFLOW. IV TO RIGHT FOREARM, NS INFUSING @ KVO. SITE PATENT WITHOUT REDNESS OR SWELLING. DENIES ANY NEEDS AT THIS TIME. CALL LIGHT IN REACH. WILL CONTINUE TO MONITOR.
[2019-12-11 09:16] VITALS: BP 130/80
--- NOTE | 2019-12-11 12:54 | NUR ---
NUTRITION FOLLOW UP: COMMENTS: Patient has been eating well for the past 3 meals. Patient does not have any new complaints per MD note. DIET: Regular diet PO INTAKE: 75% avg for last 3 meals WEIGHT: 12/05-165 lbs BM: x 2 on 12/09 SIG LABS: K-3.4(L), BUN-25(H), Ca-8.3(L) SIG MEDS: Bumex, Protonix, MVI, Vit D, Lovenox, Os-Warren, Synthroid, KCl, NS @ KVO RECOMMENDATIONS: -Continue regular diet -Offer nutritional supplements if po intake becomes < 50% avg for meals RD to continue to follow and monitor patient DHS
[2019-12-11 12:57] VITALS: BP 135/87
--- NOTE | 2019-12-11 13:35 | NUR ---
I have reviewed this patient and I concur with the Shift Assessment completed by the Licensed Practical Nurse today this shift.
--- NOTE | 2019-12-11 13:36 | NUR ---
OT NOTE: PT DOING VERY WELL TODAY. CURRENTLY OFF OF VAPOTHERM..02 SATS CHECKED THROUGHOUT TMT..INITIALLY IN MID 80S WHEN SITTING ON EOB, HOWEVER, IMPROVED TO 90S AND REMAINED ABOVE 93 DURING EXS AND ACT. SUPINE TO SIT WITH MIN/MOD ASSIST; ROLLING SIDE TO SIDE WITH MIN ASSIST; EOB SITTING WITHOUT ASSIST; PERFORMED UE/LE EXS X 10REPS X 2 SETS TODAY. EDUCATED TO CONT WITH CURRENT EXS WHEN IN BED. ART FORTE, OTR/L [id number]
[2019-12-11 17:06] VITALS: BP 113/74
--- NOTE | 2019-12-11 18:43 | NUR ---
A&O RESTING IN BED WITH EYES OPEN. NO C/O PAIN. NO S/S OF ACUTE DISTRESS NOTED. DENIES ANY NEEDS AT THIS TIME. CALL LIGHT IN REACH. WILL CONTINUE TO MONITOR.
--- NOTE | 2019-12-11 19:30 | NUR ---
ASSUMED CARE OF PATIENT AT 1900, PATIENT RESTING QUIETLY WATCHING TV, NO DISTRESSS NOTED, DENIES NEEDS AT THIS TIME, WILL CONTINUE TO MONITOR PATIENT, CALL LIGHT WITHIN REACH
[2019-12-11 20:00] VITALS: BP 123/81
[2019-12-12 04:00] VITALS: BP 143/85
--- NOTE | 2019-12-12 08:54 | NUR ---
PT ALERT X 4. BREATH SOUNDS DIMINISHED TO RLL, 5L O2 PER NC. IV TO RIGHT WRIST, PATENT, DRESSING CDI. GARCIA IN PLACE. BED LOW, CALL LIGHT IN REACH. NO OTHER NEEDS AT THIS TIME.
[2019-12-12 09:34] VITALS: BP 150/79
[2019-12-12 13:32] VITALS: BP 128/83
[2019-12-12 17:45] VITALS: BP 105/70
--- NOTE | 2019-12-12 19:42 | NUR ---
PATIENT RESTING IN BED WITH NO S/S OF DISTRESS. PATIENT DENIES NEEDS. BED IN LOWEST POSITION AND CL WITHIN REACH. ENCOURAGED THE PATIENT TO CALL IF SHE HAS NEEDS. WILL CONTINUE TO MONITOR.
[2019-12-13 09:17] VITALS: BP 123/72
--- NOTE | 2019-12-13 10:45 | NUR ---
PT ALERT X 4. BREATH SOUNDS CLEAR BILAT, 3L O2 PER NC. IV TO RIGHT WRIST, PATENT, DRESSING CDI. PT INCONTINENT OF BOWEL, CLEANED UP AND LINENS CHANGED. PT REPORTING NO PAIN AT THIS TIME. BED LOW, CALL LIGHT IN REACH. NO OTHER NEEDS AT THIS TIME.
[2019-12-13 13:30] VITALS: BP 140/87
[2019-12-13 19:09] VITALS: BP 118/58
--- NOTE | 2019-12-13 19:40 | NUR ---
PATIENT RESTING IN BED WITH NO S/S OF DISTRESS AND DENIES NEEDS AT THIS TIME. BED IN LOWEST POSITION AND CALL LIGHT WITHIN REACH. ENCOURAGED THE PATIENT TO CALL IF SHE HAS NEEDS. WILL CONTINUE TO MONITOR.
[2019-12-13 20:00] VITALS: BP 109/73
[2019-12-14] VITALS: BP 132/82
[2019-12-14 04:00] VITALS: BP 128/79
[2019-12-14 08:56] VITALS: BP 149/83
[2019-12-14] MEDS ORDERED: MUCINEX600 MG PO (11:21)
[2019-12-14] MEDS ORDERED: TESSALON PERLE100 MG PO (11:22)
--- NOTE | 2019-12-14 11:30 | NUR ---
PT ALERT X 4. BREATH SOUNDS CLEAR BILAT, 3L O2 PER NC. PT USING INCENTIVE SPIROMETER AND FLUTTER. IV TO RIGHT WRIST, PATENT, DRESSING CDI. PT REPORTING PAIN OF 7/10, MEDICATED PER ORDERS, WILL CONTINUE TO MONITOR.
[2019-12-14 12:39] VITALS: BP 140/87
--- NOTE | 2019-12-14 12:39 | NUR ---
OT NOTE: PT REMAINS VERY MOTIVATED HOWEVER, HER 02 SATS DROP CONSIDERABLY UPON SITTING ON EOB. PT PERFORMED WELL WITH BED MOB AND WAS ABLE TO PERFORM SUPINE TO SIT WITH ONLY MIN ASSIST TODAY. UPON GETTING TO EOB, PTS SATS DROPPED TO 80%...SAT ON EOB FOR APPROX 4-5 MIN BUT SATS DID NOT INCREASED GREATER THAN 84%...ASSISTED PT BACK TO BED AND STILL REQUIRED SEVERAL MIN FOR SATS TO INCREASE TO 90%. PT IS VERY MOTIVATED TO IMPROVE AND HAS EXCELLENT POTENTIAL, BUT DONT WANT TO KEEP PT UP AND EXERCISING WITH SATS IN 80S. STILL RECOMMEND IP REHAB WHEN MEDICALLY STABLE. ART FORTE, OTR/L [id number]
[2019-12-14 18:45] VITALS: BP 113/73
[2019-12-14 20:00] VITALS: BP 124/79
--- NOTE | 2019-12-14 21:00 | NUR ---
AWAKE AND ALERT. ORIENTED X4. LYING IN BED. RESP IRREG. REPORTS SOB WITH EXERTION. O2 @ 3LHFC. GARCIA CATH PATENT AND DRAINING CLEAR YELLOW URINE. DENIES PAIN. NO EDEMA NOTED. BRUISES NOTED TO BUE AND BLE. INCONT OF BOWELS. NS @ 5 ML/HR INFUSING IN RT WRIST. NO DISTRESS. SR ELEVATED X2. CL IN REACH.
--- NOTE | 2019-12-14 22:49 | NUR ---
REPORT CALLED TO CAMMY HARDING IN REHAB. PT WILL BE GOING TO ROOM 12. PT HAS SIGNED D/C PAPERWORK AND VERBALIZED UNDERSTANDING.
--- NOTE | 2019-12-15 08:18 | MORECARE ---
CASE MANAGEMENT DISCHARGE SUMMARY PATIENT: MATTEO GANNON UNIT: [id number] ADM DATE: 12/03/19 AGE: 69 : 49 SEX: F ROOM/BED: D.2228 AUTHOR: VIOLA MCLEOD PHYSICIAN: REFERRING PHYSICIAN: LO ANGUIANO MD DATE OF SERVICE: 12/15/19 Discharge Plan Patient Name: MATTEO GANNON Facility: [facility]:[place] : 1950 Planned Disposition: Inpatient Rehab Anticipated Discharge Date: Discharge Date: 12/14/2019 Expected LOS: Initial Reviewer: [email or web address] Initial Review Date: 12/09/2019 Generated: 12/15/19 9:17 am DCP- Discharge Planning Updated by [email or web address]: Mari Noriega on 12/09/19 12:[address] Patient Name: MATTEO GANNON Admission Status: ER Accout number: [id number] Admission Date: 12-03-2019 : 1950 Admission Diagnosis:PNEUMONIA, UNSPECIFIED ORGANISM Attending: LO ANGUIANO Current LOS: 6 Anticipated DC Date: Planned Disposition: Inpatient Rehab Primary Insurance: MEDICARE A & B Discharge Planning Comments: CM met with patient at bedside after explaining CM role and obtaining verbal consent. CM discussed availability / needs of home health, REHAB and medical equipment. PATIENT STATES WILL NEED [facility] WHEN MEDICALLY STABLE. SHE IS CURRENTLY ON VAPOTHERM AT 15. [facility] [employer] [facility] PT WORKED WITH HER TODAY. MICHAEL SIGNED FOR [facility]. CM WILL FOLLOW AND ASSIST NEEDED. County Treasurer: Mari Noriega DCPIA - Discharge Planning Initial Assessment Updated by [id number]: Mari Noriega on 12/09/19 1:51 pm * Is the patient Alert and Oriented? Yes * PCP DIANA * Pharmacy [facility] * Preadmission Environment Home with Family * ADLs Independent * Other Equipment 02,CANE, WALKER WITH [facility] * Community resources currently utilized None * Additional services required to return to the preadmission environment? Yes * Can the patient safely return to the preadmission environment? Yes * Has this patient been hospitalized within the prior 30 days at any hospital? No Coverage Notice Reviewer: [id number] - Mari Noriega Notice Issued Date-Time: 12/09/2019 15:56 Notice Type: Patient Choice Letter Notice Delivered To: Relationship to Patient: Riveting Machine Operator Name: Delivery Method: HAND - Hand Delivered Ernestine Days: Prior Verbal Notification: Recipient Understood Notice: Yes Recipient Signature: Yes Med Rec Note Co-signed by Attending: Coverage Notice Comment: [facility] Reviewer: [id number] Kendall Noriega Notice Issued Date-Time: 12/14/2019 13:48 Notice Type: IM Discharge Notice Notice Delivered To: Patient Relationship to Patient: Riveting Machine Operator Name: Delivery Method: HAND - Hand Delivered Ernestine Days: Prior Verbal Notification: Recipient Understood Notice: Yes Recipient Signature: Yes Med Rec Note Co-signed by Attending: Coverage Notice Comment: Last DP export: 12/09/19 12:59 p Patient Name: MATTEO GANNON Page [id number] at 0818 All edits/amendments must be made on the electronic document DICTATION DATE: 12/15/19817 COUNTRY SALES MANAGER: RAJWINDER 12/15/19817 RPT#: [id number] DC DATE:12/14/19 STATUS: DIS IN [facility] [address] [place] [address] END OF REPORT
== END 2019-12-14 22:50 | DRG 177 ==
LOC: D.ER 09:39 → D.EDHOLD 13:28 → D.MS 13:28 → D.M2 13:28 → D.ICU 13:28 → D.EDHOLD 21:43 → D.ICU 12-04 17:18 → D.MS 12-07 14:47
PROVIDERS: Family Medicine; ADMIT Family Medicine; ATTEND Family Medicine
DX: J69.0 Pneumonitis due to inhalation of food and vomit (principal); J96.01 Acute respiratory failure with hypoxia; I50.33 Acute on chronic diastolic (congestive) heart failure; M33.20 Polymyositis, organ involvement unspecified; M32.9 Systemic lupus erythematosus, unspecified; E87.6 Hypokalemia; E03.9 Hypothyroidism, unspecified; I48.91 Unspecified atrial fibrillation; M53.3 Sacrococcygeal disorders, not elsewhere classified; K21.9 Gastro-esophageal reflux disease without esophagitis

== ENCOUNTER 2019-12-14 18:17 | Inpatient (IN) | payer MEDICARE, OTHER ==
[~2019-12-14] VITALS: Ht 167.6 cm; Wt 75.3 kg
[~2019-12-14 18:17] MED LIST changes: +MYCOPHENOLIC A360 MG PO; +SYNTHROID25 MCG PO; +TESSALON PERLE100 MG PO; +ULTRAM50 MG PO
--- NOTE | 2019-12-14 23:15 | NUR ---
ADMIT FOR PHYSICAL REHAB AND SERVICES OF DR AGUAYO. AWAKE AND ALERT. O2/2L ON PER NASAL CANNULA. GARCIA PATENT. ORIENTED X 4. SEE ADMISSION ASSESSMENT. CALL LIGHT IN REACH.. NO DISTRESS NOTED.
[2019-12-14 23:56] VITALS: BP 137/53; BMI 26.8
--- NOTE | 2019-12-15 03:08 | NUR ---
RESTING QUIETLY WITH RESPRIATIONS UNLABORED. NO DISTRESS NOTED. RADHA LORENZO.
--- NOTE | 2019-12-15 05:31 | NUR ---
QUIET HOURS. SLEPT FOR A LONG TIME THIS SHIFT. O2/3L ON PER NASAL CANNULA. NO RESPIRATORY DISTRESS NOTED. DENIES NEEDS AT THIS TIME.
[2019-12-15 05:44] LABS: BILIRUBIN NEGATIVE (NEGATIVE); KETONE NEGATIVE (NEGATIVE); NITRITE NEGATIVE (NEGATIVE); UROBILINOGEN NORMAL (NORMAL)
[2019-12-15 05:45] LABS: BACTERIA FEW /hpf (NONE SEEN); EPITHELIAL CELLS 0-5 /hpf (0-5); WHITE CELLS - URINE 0-5 /hpf (0-5); YEAST >1+ /hpf (NONE SEEN)
[2019-12-15 07:44] LABS: HEMATOCRIT 41.1 % (36.0-48.0); HEMOGLOBIN 12.7 g/dL (12-16); MCH 26.9 pg (26.0-34.0); MCHC 30.9 g/dL (31.0-37.0); MCV 87.1 fL (80.0-100.0); MEAN PLATELET VOLUME 10.8 fL (7.4-10.4); RBC 4.72 10x6/uL (4.00-5.40); RDW 15.4 % (11.5-14.5); WBC 18.9 10x3/uL (4.8-10.8)
[2019-12-15 07:50] LABS: PLATELET COUNT 362 10x3/uL (130-400)
--- NOTE | 2019-12-15 07:51 | NUR ---
PT RESTING IN BED WITH EYES OPEN CALL LIGHT IN REACH WILL MONITER
[2019-12-15 08:04] VITALS: BP 140/105
[2019-12-15 08:05] LABS: CALC OSMOLALITY 280 mosm/kg (275-300); CALCIUM 9.4 mg/dL (8.5-10.1); CARBON DIOXIDE 27.9 mmol/L (21.0-32.0); CHLORIDE - SERUM 101 mmol/L (98-107); CREATININE - SERUM 0.7 mg/dL (0.6-1.3); GLUCOSE 114 mg/dL (74-106); POTASSIUM - SERUM 5.2 mmol/L (3.5-5.1); SODIUM 136 mmol/L (136-145); UREA NITROGEN 35 mg/dL (7-18); eGFR NON AFRICAN AMERICAN 88 mL/min (90-120)
--- NOTE | 2019-12-15 10:00 | NUR ---
I have reviewed this patient and I concur with the Shift Assessment completed by the Licensed Practical Nurse today this shift.
[2019-12-15 13:11] LABS: LYMPHOCYTES 19 % (15-50); MONOCYTES 16 % (2-11); NEUTROPHILS 57 % (40-80); PLATELET ESTIMATE NORMAL
[2019-12-15 13:37] LABS: BASOPHILS 0.4 % (0-2); EOSINOPHILS 0.1 % (0-7); HEMATOCRIT 42.9 % (36.0-48.0); HEMOGLOBIN 13.5 g/dL (12-16); IMMATURE GRANULOCYTES 8.1 % (0-5); MCH 27.7 pg (26.0-34.0); MCHC 31.5 g/dL (31.0-37.0); MCV 87.9 fL (80.0-100.0); MEAN PLATELET VOLUME 10.3 fL (7.4-10.4); NEUTROPHILS 75.4 % (40-80); PLATELET COUNT 350 10x3/uL (130-400); RBC 4.88 10x6/uL (4.00-5.40); RDW 15.4 % (11.5-14.5); WBC 21.5 10x3/uL (4.8-10.8)
[2019-12-15 13:39] VITALS: Ht 167.6 cm; Wt 75.3 kg
[2019-12-15 13:46] LABS: ANION GAP 9.6 mmol/L (8-16); CALCIUM 9.6 mg/dL (8.5-10.1); CARBON DIOXIDE 29.7 mmol/L (21.0-32.0)
[2019-12-15 13:47] LABS: POTASSIUM - SERUM 3.3 mmol/L (3.5-5.1)
--- NOTE | 2019-12-15 16:02 | NUR ---
PATIENT ADMITTED TO REHAB FROM ACUTE FLOOR. HER PCP IS DR. ORTIZ. DME AT HOME IS A CANE, WALKER [facility] WILL CONTINUE TO FOLLOW WITH PATIENT.
--- NOTE | 2019-12-15 18:34 | NUR ---
PT RESTING IN BED WITH EYES OPEN CALL LIGHT IN REACH NO PROBLEMS WILL MONITER
--- NOTE | 2019-12-15 19:23 | NUR ---
RECEIVED PT LYING IN BED WATCHING TV. ALERT AND ORIENTED X4. INCONTINENCE CARE PROVIDED. LARGE SOFT FORMED BM. NO BUTTOCKS BREAKDOWN NOTED. RIGHT WRIST SL WITHOUT REDNESS OR SWELLING. DRESSING INTACT. DENIES ANY PAIN OR NEEDS. CALL LIGTH AND WATER WITHIN REACH. FALL PRECATIONS IN PLACE. CPOC
[2019-12-15 19:59] VITALS: BP 146/87
--- NOTE | 2019-12-15 23:50 | NUR ---
PT LYING IN BED SUPINE EYES CLOSED RESTING. RR EVEN AND UNLABORED. CALL LIGHT WITHIN REACH. FALL PRECAUTIONS IN PLACE. CPOC
--- NOTE | 2019-12-16 01:20 | NUR ---
PT LYING IN BED EYES CLOSED RESTING QUIETLY. NO SIGNS OF ACUTE DISTRESS NOTED. CALL LIGHT WITHIN REACH. FALL PRECAUTIONS IN PLACE. CPOC
--- NOTE | 2019-12-16 04:15 | NUR ---
PT LYING IN BED EYES CLOSED RESTING. RR EVEN AND UNLABORED. CALL LIGHT WITHIN REACH. WILL CONTINUE TO MONITOR
[2019-12-16 08:00] VITALS: BP 134/92
--- NOTE | 2019-12-16 13:55 | NUR ---
CARE TEAM MEETING: PATIENT IS NEW TO THE UNIT AND WILL BE RA AT NEXT MEETING. WILL CONTINUE TO FOLLOW WITH PATIENT.
--- NOTE | 2019-12-16 14:02 | NUR ---
PATIENT SPOUSE ATTENDED THE MEEETING.
--- NOTE | 2019-12-16 17:14 | RHP ---
PATIENT: MATTEO GANNON MEDICAL RECORD: [id number] ACCOUNT: [id number] LOCATION:[facility] : [birth year] ADMISSION DATE: 12/14/19 REHABILITATION HISTORY AND PHYSICAL EXAMINATION POST ADMISSION PHYSICIAN EXAMINATION ADMITTING DIAGNOSIS: Steroid-induced myopathy. HISTORY OF PRESENT ILLNESS: The patient is a 69-year-old female patient who presents, followed by Dr. Hernandez for severe interstitial lung disease. Has got a history of lupus and polymyositis. She was in the ED for increasing shortness of breath, felt to have mild fluid overload and placed on Bumex and set up on home O2. She had no fever. She has negative COVID test and she saw Dr. Coronel on 12/02/2019 who switched her Bumex to a higher dose. She somewhat became worse, had more shortness of breath, presented to the Emergency Room. She was somewhat hypoxic and she was placed on 8 liters via nasal cannula. She denied fever. She was placed on nonrebreather eventually to get her sats up. She has got home O2 and was supposed to be at a higher dose only at night, but had cranked it up even higher during the day. Once again after being seen and evaluated, felt like she had a multilobar pneumonia as well as interstitial and alveolar infiltrates. The patient was placed in the hospital. She also was noted to have some rib irregularities involving the anterior ribs bilaterally consistent with healing rib fractures. The patient had significant O2 demands and definitely hypercapnic respiratory failure. The patient did not have PE. She was seen throughout her stay by pulmonary who continued home medications. I treated her respiratory problems appropriately and titrated on her O2. She has now been weaned back to 3 liters via nasal cannula. She does get anxious at times with therapy. She lives with her spouse who assists her when needed. Currently, she is having increased weakness, especially in her lower extremities. She has got some peripheral edema, which is affecting her tolerance to PT. She has proximal muscle weakness. She is mod to max assist for sit to stand and bed to chair. She would like to regain her strength and return home. COMORBIDITIES: Include weakness, [id number] hypercapnic respiratory failure. She got a history of polymyositis, systemic lupus, hypothyroidism, osteoporosis, healing rib fractures, steroid-induced myopathy. PAST MEDICAL HISTORY: Significant for interstitial lung disease, lupus, polymyositis, sick sinus syndrome, CHF, depression, osteoporosis, osteopenia, hyperlipidemia, reflux, thrombocytopenia, paroxysmal atrial fibrillation, pulmonary hypertension, chronic UTIs, chronic fatigue. PAST SURGICAL HISTORY: Includes lumbar laminectomy. ALLERGIES: ALBUTEROL AND REGLAN. CURRENT MEDICATIONS: Include Zoloft 50 mg at bedtime, Protonix 40 mg b.i.d., sotalol 80 mg daily, prednisone, she is on mg b.i.d. She is on multivitamin daily, metoprolol 12.5 mg daily. She is on Atarax 25 mg b.i.d., hydroxychloroquine 200 mg daily, Neurontin 100 mg t.i.d., vitamin D 2000 units t.i.d., benzonatate 100 mg t.i.d., Synthroid 25 mcg daily, tramadol 50 mg every 4 hours p.r.n., Mucinex 1200 mg b.i.d. HABITS: No alcohol or tobacco use. HISTORY AND PHYSICAL [id number] MATTEO GANNON FAMILY HISTORY: Noncontributory. SOCIAL HISTORY: The patient hopes to return back home and get back to her prior level of functioning. REVIEW OF SYSTEMS: GENERAL: Does complain of weakness and fatigue. HEENT: Denies cold, cough, or congestion. CARDIOVASCULAR: Denies any chest pain. PHYSICAL EXAMINATION: VITAL SIGNS: Stable. She is afebrile. GENERAL: A well-developed elderly female in no acute distress upon exam. HEENT: Normocephalic and atraumatic. Mucosa moist. NECK: Supple with no lymphadenopathy. LUNGS: Clear in upper saucedo with decreased breath sounds in the bases. HEART: Regular rate and rhythm. ABDOMEN: Soft, benign, and nondistended. Positive bowel sounds times 4. EXTREMITIES: No clubbing, cyanosis or edema. NEUROLOGIC: She does have noted weakness in her proximal muscles of her thighs. LABORATORY DATA: White count is 18.9, H&H of 12 and 41 and platelet count was 362. Sodium is 136, potassium 5.2, BUN and creatinine of 35 and 0.7 and blood sugar is noted to be 114. Her admit UA was essentially negative except for some yeast. ASSESSMENT: This is a 69-year-old female patient admitted to rehab with a working diagnosis of steroid-induced myopathy. The patient has potential to make improvement. We instituted the following multidisciplinary therapies including, not limited to physical, occupational, respiratory, speech, nutritional services, prosthetics and orthotics. Given her complex medical condition and risks for more complications, rehabilitation services cannot be provided at a low level of care such as custodial facility. PLAN: 1. Admit to [facility] for inpatient therapy to include the following disciplines; A. Physical therapy to improve gait, all transfer skills and bed mobility to a modified independent level. B. Occupational therapy to improve activities of daily living. C. Case management to help with discharge planning and placement options. D. Nutrition to assist with nutritional needs. E. Rehabilitation nursing to assist in monitoring the patient's underlying medical conditions and to assist with any type of bowel or bladder management. 2. The patient's current medication and medical care will be continued. 3. The patient will be placed on standard fall precautions. 4. We will watch her potassium closely and repeat this in the a.m. and I will see again in the morning. TRANSINT:[id number] Voice Confirmation ID: [id number] DOCUMENT ID: [id number] ROSANGELA notes whether there has been none or any medical/functional change since admission: HISTORY AND PHYSICAL [id number] MATTEO GANNON - No change since prescreen. ROSANGELA attests patient continues to be appropriate for IRF: - Continues to be appropriate. HUNTER AGUAYO MD at 1714 CC: [id number] DICTATION DATE: 12/15/19 1215 RESIDENTIAL GAS HEAT TECHNICIAN: 12/15/19 1403 ADM IN [facility] [place] [id number] [place] [address]
--- NOTE | 2019-12-16 19:07 | NUR ---
RECEIVED PT LYING IN BED AWAKE. ALERT AND ORIENTED X4. DENIES ANY NEEDS OR PAIN. CONTINUES ON 3L VIA NC. GARCIA PATENT FREE FROM KINKS. RIGHT WRIST SL WTIHOUT REDNESS OR SWELLING. DRESSING INTACT. CALL LIGHT WITHIN REACH. FALL PRECAUTIONS IN PLACE. CPOC
[2019-12-16 21:41] VITALS: BP 108/72
--- NOTE | 2019-12-17 01:11 | NUR ---
PT LYING IN BED EYES CLOSED RESTING. RR EVEN AND UNLABORED. CALL LIGHT WITHIN REACH. FALL PRECAUTIONS IN PLACE. CPOC
--- NOTE | 2019-12-17 06:34 | NUR ---
PT LYING IN BED SUPINE EYES CLOSED RESTING QUIETLY. NO SIGNS OF ACUTE DISTRESS NOTED. CALL LIGHT WITHIN REACH. FALL PRECAUTIONS IN PLACE. CPOC
[2019-12-17 07:44] VITALS: BP 135/79
--- NOTE | 2019-12-17 08:15 | NUR ---
SHE IS C/O HER BACK HURTING, RIGHT ANKLE PAIN. SHE SAYS SHE HURTS ALL OVER. SHE HAS A GARCIA. THE CALL LIGHT IS WITHIN REACH.
--- NOTE | 2019-12-17 13:25 | NUR ---
Nutrition Follow-up: Diet: Regular PO intake: 100% x last 3 meals. She reports that her appetite is good. Last BM: 12/16/19. Wt: 166# (12/15/19) Meds noted: prednisone, MVI. Labs noted: K 3.3(L), Glu 143(H) Recommend continue current diet. RD following.
[2019-12-17 20:00] VITALS: BP 131/74
--- NOTE | 2019-12-17 20:00 | NUR ---
AWAKE AND ALERT. RESTING IN BED WITH RESPIRAITONS UNLABORED. NO DISTRESS NOTED. GARCIA PATENT. O2/3L ON PER NASAL CANNULA. NO NEEDS VOICED. CALL LIGHT IN REACH.
--- NOTE | 2019-12-18 01:57 | NUR ---
SLEEPING WITH RESPIRATIONS UNLABORED. NO DISTRESS NOTED. CALL LIGHT IN REACH.
--- NOTE | 2019-12-18 03:30 | NUR ---
CONINUES SLEEPING WITH NO DISTRESS NOTED.
--- NOTE | 2019-12-18 05:19 | NUR ---
QUIET HOURS. NO ACUTE CHANGES IN CONDITION THIS SHIFT. RESTING IN BED WITH NO DISTRESS NOTED.
[2019-12-18 07:35] LABS: CALC OSMOLALITY 281 mosm/kg (275-300); CALCIUM 8.7 mg/dL (8.5-10.1); CARBON DIOXIDE 26.5 mmol/L (21.0-32.0); CHLORIDE - SERUM 105 mmol/L (98-107); CREATININE - SERUM 0.6 mg/dL (0.6-1.3); GLUCOSE 106 mg/dL (74-106); POTASSIUM - SERUM 3.7 mmol/L (3.5-5.1); SODIUM 140 mmol/L (136-145); UREA NITROGEN 21 mg/dL (7-18); eGFR NON AFRICAN AMERICAN > 90 mL/min (90-120)
[2019-12-18 07:37] LABS: BASOPHILS 0.3 % (0-2); EOSINOPHILS 0.9 % (0-7); HEMATOCRIT 36.3 % (36.0-48.0); HEMOGLOBIN 11.1 g/dL (12-16); IMMATURE GRANULOCYTES 8.3 % (0-5); LYMPHOCYTES 6.8 % (15-50); MCH 27.5 pg (26.0-34.0); MCHC 30.6 g/dL (31.0-37.0); MCV 89.9 fL (80.0-100.0); MEAN PLATELET VOLUME 10.2 fL (7.4-10.4); MONOCYTES 5.9 % (2-11); NEUTROPHILS 77.8 % (40-80); RBC 4.04 10x6/uL (4.00-5.40); RDW 15.8 % (11.5-14.5); WBC 17.6 10x3/uL (4.8-10.8)
[2019-12-18 07:42] LABS: PLATELET COUNT 227 10x3/uL (130-400)
--- NOTE | 2019-12-18 07:46 | NUR ---
PT RESTING IN BED WITH EYES OPEN CALL LIGHT IN REACH WILL MONITER
[2019-12-18 08:29] VITALS: BP 145/88
--- NOTE | 2019-12-18 18:13 | NUR ---
PT RESTING IN BED WITH EYES OPEN CALL LIGHT IN REACH WILL MONITER
--- NOTE | 2019-12-18 19:17 | NUR ---
RECEIVED PT LYING IN BED WATCHING TV. ALERT AND ORIENTED X4. DENIES ANY NEEDS OR PAIN. GARCIA PATENT FREE FROM KINKS. CONTINUES ON 3L VIA NC. RIGHT WRIST SL D/C WITH CATH TIP INTACT. CALL LIGHT AND WATER WITHIN REACH. FALL PRECAUTIONS IN PLACE. CPOC
[2019-12-18 19:25] VITALS: BP 130/81
--- NOTE | 2019-12-19 01:12 | NUR ---
PT LYING IN BED SUPINE EYES CLOSED RESTING QUIETLY. RR EVEN AND UNLABORED. CONTINUES ON 3L VIA NC. CALL LIGHT WITHIN REACH. WILL CONTINUE TO MONITOR
--- NOTE | 2019-12-19 03:49 | NUR ---
PT LYING IN BED SUPINE EYES CLOSED RESTING QUIETLY. RR EVEN AND UNLABORED. CALL LIGHT WITHIN REACH. FALL PRECAUTIONS IN PLACE. CPOC
[2019-12-19 08:36] VITALS: BP 132/81
--- NOTE | 2019-12-19 09:30 | NUR ---
SHE IS ALERT, TALKING. HAD A BM ON HERSELF. HAS A GARCIA. TOOK HER MEDICATIONS WITHOUT ANY PROBLEMS. THE CALL LIGHT IS WITHIN REACH AND THE BED ALARM IS ON.
[2019-12-19 20:05] VITALS: BP 131/73
--- NOTE | 2019-12-19 20:05 | NUR ---
RECEIVED PT LYING IN BED WATCHING TV. ALERT AND ORIENTED X4. CONTINUES ON 2L VIA NC. GARCIA PATENT AND FREE FROM KINKS. INCONTINENCE CARE PROVIDED MED FORMED BOWEL MOVEMENT. BRIEF CHANGED AND UNDERPADS. VS STABLE. SHIFT ASSESSMENT COMPLETE. NO OTHER CONCERNS VOICED. DENIES ANY PAIN. CALL LIGHT AND PERSONAL ITEMS WITHIN REACH. FALL PRECAUTIONS IN PLACE. CPOC
--- NOTE | 2019-12-20 01:28 | NUR ---
PT LYING IN BED SUPINE EYES CLOSED RESTING. RR EVEN AND UNLABORED. CONTINUES ON 2L VIA NC. CALL LIGHT WITHIN REACH. WILL CONTINUE TO MONITOR
--- NOTE | 2019-12-20 03:45 | NUR ---
PT LYING IN BED SUPINE EYES CLOSED RESTING QUIETLY. CONTINUES ON 2L VIA NC. O2 SAT 93%. CALL LIGHT WITHIN REACH. WILL CONTINUE TO MONITOR
--- NOTE | 2019-12-20 05:00 | NUR ---
BEDPAN USED SMALL FORMED BM. SMALL SMEAR IN BRIEF. CHANGED BRIEF. NO OTHER CONCERNS VOICED. WILL CONTINUE TO MONITOR
--- NOTE | 2019-12-20 06:41 | NUR ---
PT LYING IN BED SUPINE EYES CLOSED RESTING COMFORTABLY. NO ACUTE CHANGES IN CONDITION NOTED THIS SHIFT. CALL LIGHT WITHIN REACH. CPOC
[2019-12-20 08:38] VITALS: BP 135/73
--- NOTE | 2019-12-20 08:43 | NUR ---
SHE IS ALERT, TALKING. HAS A GARCIA. NO NEW ISSUES. THE CALL LIGHT IS WITHIN REACH.
--- NOTE | 2019-12-20 14:58 | NUR ---
SHE AND HER WERE TRYING TO GO TO THE BATHROOM. SHE DOES NOT BEAR WEIGHT ON HER LEGS. INSTRUCTED HER NOT TO BE TRYING TO GET HER OUT OF BED. THE CALL LIGHT IS WITHIN REACH. HER IS A THE BEDSIDE.
[2019-12-20 19:47] VITALS: BP 121/67
--- NOTE | 2019-12-20 19:47 | NUR ---
RECEIVED PT LYING IN BED SUPINE AWAKE. ALERT AND ORIENTED X4. GARCIA PATENT FREE FROM KINKS. PT O2 SAT 89% ON 2L VIA NC. PLACED PT IN UPRIGHT POSITION AND HAD PT USE IS O2 SAT 90% PLACED O2 ON 2.5L NOW PT IS MAINTAINING 92-93% VS STABLE. SHIFT ASSESSMENT COMPLETE. NO SIGNS OF ACUTE DISTRESS NOTED. CALL LIGHT AND WATER WITHIN REACH. FALL PRECAUTIONS IN PLACE. CPOC
--- NOTE | 2019-12-21 01:47 | NUR ---
PT LYING IN BED SUPINE EYES CLOSED RESTING QUIETLY. RR EVEN AND UNLABORED. CONTINUES ON 2.5L VIA NC. CALL LIGHT WITHIN REACH. WILL CONTINUE TO MONITOR
--- NOTE | 2019-12-21 04:00 | NUR ---
PT LYING IN BED SUPINE EYES CLOSED RESTING QUIETLY. HOB ELEVATED. NO SIGNS OF DISTRESS NOTED. CALL LIGHT WITHIN REACH. WILL CONTINUE TO MONITOR
--- NOTE | 2019-12-21 05:41 | NUR ---
PT LYING IN BED AWAKE. C/O 5/10 DEEP ACHING PAIN IN LOWER BACK. ADMINISTERED 100MG TRAMADOL PER REQUEST. NO OTHER NEEDS VOICED. GARCIA EMPTIED 200 CLEAR YELLOW URINE. NO ACUTE CHANGES IN CONDITION THIS SHIFT. WILL CONTINUE TO MONITOR
[2019-12-21 07:19] LABS: BASOPHILS 0.1 % (0-2); EOSINOPHILS 0.5 % (0-7); HEMATOCRIT 35.3 % (36.0-48.0); HEMOGLOBIN 10.5 g/dL (12-16); IMMATURE GRANULOCYTES 4.8 % (0-5); LYMPHOCYTES 7.4 % (15-50); MCH 26.9 pg (26.0-34.0); MCHC 29.7 g/dL (31.0-37.0); MCV 90.3 fL (80.0-100.0); MEAN PLATELET VOLUME 10.3 fL (7.4-10.4); MONOCYTES 4.4 % (2-11); NEUTROPHILS 82.8 % (40-80); RBC 3.91 10x6/uL (4.00-5.40); RDW 16.5 % (11.5-14.5); WBC 16.7 10x3/uL (4.8-10.8)
[2019-12-21 07:23] LABS: PLATELET COUNT 164 10x3/uL (130-400)
[2019-12-21 07:27] LABS: CALC OSMOLALITY 278 mosm/kg (275-300); CALCIUM 8.9 mg/dL (8.5-10.1); CARBON DIOXIDE 26.6 mmol/L (21.0-32.0); CHLORIDE - SERUM 106 mmol/L (98-107); CREATININE - SERUM 0.6 mg/dL (0.6-1.3); GLUCOSE 101 mg/dL (74-106); POTASSIUM - SERUM 4.2 mmol/L (3.5-5.1); SODIUM 140 mmol/L (136-145); UREA NITROGEN 13 mg/dL (7-18); eGFR NON AFRICAN AMERICAN > 90 mL/min (90-120)
[2019-12-21 08:00] VITALS: BP 150/76
--- NOTE | 2019-12-21 08:32 | NUR ---
RESTING IN BED. CL IN REACH, NO DISTRESS NOTED. FAMILY AT BS,
--- NOTE | 2019-12-21 11:08 | NUR ---
PARTICIPATING IN THERAPY AT THIS TIME,
--- NOTE | 2019-12-21 14:47 | NUR ---
IN THERAPY AT THIS TIME. NO CHANGE IN ASSESSMENT.
--- NOTE | 2019-12-21 19:34 | NUR ---
PT UP IN BED WATCHING TV, NO IMMEDIATE NEEDS NOTED, RESPIRATIONS EVEN/UNLABORED, USES CALL/LIGHT, PRECAUTIONS IN PLACE, FLUIDS/CALL LIGHT WITHIN REACH
[2019-12-21 23:17] VITALS: BP 137/81
--- NOTE | 2019-12-22 02:39 | NUR ---
PT ASLEEP, AROUSES EASILY TO VOICE, NO IMMEDIATE NEEDS NOTED, FALL PRECAUTIONS IN PLACE, RESPIRATIONS EVEN/UNLABORED, FLUIDS/CALL LIGHT WITHIN REACH
[2019-12-22 08:00] VITALS: BP 162/90
--- NOTE | 2019-12-22 13:10 | NUR ---
PT RESTING IN BED WITH EYES OPEN CALL LIGHT IN REACH WILL MONITER
--- NOTE | 2019-12-22 13:10 | NUR ---
DR MORALES HERE TO SEE PT NEW ORDERS
--- NOTE | 2019-12-22 14:32 | NUR ---
22G IV TO LEFT WRIST X 1 ATTEMPT. SECURED WITH TAPE COVERED WITH OPSITE AND DATED AND INITIALED.
--- NOTE | 2019-12-22 18:20 | NUR ---
PT RESTING IN BED WITH EYES OPEN CALL LIGHT IN REACH WILL MONITER
--- NOTE | 2019-12-22 19:39 | NUR ---
PT IN BED WATCHING TV,NO IMMEDIATE NEEDS NOTED, FALL PRECAUTIONS IN PLACE PLACE, RESPIRATIONS EVEN/UNLABORED, FLUIDS/CALL LIGHT WITHIN REACH
[2019-12-22 21:12] VITALS: BP 121/74
--- NOTE | 2019-12-23 01:17 | NUR ---
PT IN BED ASLEEP,NO IMMEDIATE NEEDS NOTED, FALL PRECAUTIONS IN PLACE PLACE, RESPIRATIONS EVEN/UNLABORED, FLUIDS/CALL LIGHT WITHIN REACH
[2019-12-23 06:23] LABS: CALC OSMOLALITY 282 mosm/kg (275-300); CALCIUM 8.9 mg/dL (8.5-10.1); CARBON DIOXIDE 28.7 mmol/L (21.0-32.0); CHLORIDE - SERUM 103 mmol/L (98-107); CREATININE - SERUM 0.7 mg/dL (0.6-1.3); GLUCOSE 108 mg/dL (74-106); POTASSIUM - SERUM 3.8 mmol/L (3.5-5.1); SODIUM 140 mmol/L (136-145); eGFR NON AFRICAN AMERICAN 88 mL/min (90-120)
[2019-12-23 06:26] LABS: UREA NITROGEN 21 mg/dL (7-18)
[2019-12-23 06:53] LABS: HEMATOCRIT 37.4 % (36.0-48.0); HEMOGLOBIN 11.4 g/dL (12-16); MCH 27.5 pg (26.0-34.0); MCHC 30.5 g/dL (31.0-37.0); MCV 90.3 fL (80.0-100.0); MEAN PLATELET VOLUME 11.1 fL (7.4-10.4); PLATELET COUNT 160 10x3/uL (130-400); RBC 4.14 10x6/uL (4.00-5.40); RDW 16.5 % (11.5-14.5); WBC 16.4 10x3/uL (4.8-10.8)
[2019-12-23 07:44] LABS: EOSINOPHILS 1 % (0-7); LYMPHOCYTES 9 % (15-50); MONOCYTES 3 % (2-11); NEUTROPHILS 87 % (40-80); PLATELET ESTIMATE NORMAL
[2019-12-23 08:00] VITALS: BP 124/77
--- NOTE | 2019-12-23 09:00 | NUR ---
I have reviewed this patient and I concur with the Shift Assessment completed by the Licensed Practical Nurse today this shift.
--- NOTE | 2019-12-23 10:04 | NUR ---
DUE TO CHANGE IN MEDICAL CONDITION, PATIENT DISCHARGE FROM REHAB AND ADMITTED TO ACUTE FLOOR ( RESPIRATORY ISSUES)
--- NOTE | 2019-12-23 11:45 | NUR ---
PT TRANSPORTED UPSTAIRS TO ACUTE CARE PER DR OLIVIER CELAYA
== END 2019-12-23 14:51 | disposition short-term general hospital (02) | DRG 91 ==
LOC: D.REHAB 18:17
PROVIDERS: ADMIT Emergency Medicine; ATTEND Emergency Medicine
DX: G72.0 Drug-induced myopathy (principal); J96.22 Acute and chronic respiratory failure with hypercapnia; J96.21 Acute and chronic respiratory failure with hypoxia; J18.9 Pneumonia, unspecified organism; I50.33 Acute on chronic diastolic (congestive) heart failure; T38.0X5D Adverse effect of glucocorticoids and synthetic analogues, subsequent encounter; M32.9 Systemic lupus erythematosus, unspecified; E03.9 Hypothyroidism, unspecified; M81.0 Age-related osteoporosis without current pathological fracture; S22.49XD Multiple fractures of ribs, unspecified side, subsequent encounter for fracture with routine healing; K21.9 Gastro-esophageal reflux disease without esophagitis; E78.5 Hyperlipidemia, unspecified; R53.81 Other malaise; J30.9 Allergic rhinitis, unspecified; I48.91 Unspecified atrial fibrillation; D72.829 Elevated white blood cell count, unspecified; Z95.0 Presence of cardiac pacemaker

== ENCOUNTER 2019-12-23 12:33 | Inpatient (IN) | payer MEDICARE, OTHER ==
[~2019-12-23] VITALS: Ht 167.6 cm; Wt 71.7 kg
[2019-12-23 12:40] VITALS: BP 124/77; BMI 26.7
[2019-12-23 15:30] VITALS: BP 111/79
--- NOTE | 2019-12-23 19:30 | NUR ---
PT IN BED, AAO X 3, RESP EVEN AND UNLABORED. NO DISTRESS NOTED, CL IN REACH, SR UP X 2.
[2019-12-23 21:11] VITALS: BP 129/90
[2019-12-24] VITALS: BP 125/64
[2019-12-24 04:00] VITALS: BP 113/59
[2019-12-24 06:38] LABS: BASOPHILS 0.2 % (0-2); EOSINOPHILS 2.8 % (0-7); HEMATOCRIT 40.7 % (36.0-48.0); HEMOGLOBIN 12.4 g/dL (12-16); IMMATURE GRANULOCYTES 4.3 % (0-5); LYMPHOCYTES 10.7 % (15-50); MCH 27.3 pg (26.0-34.0); MCHC 30.5 g/dL (31.0-37.0); MCV 89.6 fL (80.0-100.0); MEAN PLATELET VOLUME 10.4 fL (7.4-10.4); MONOCYTES 4.8 % (2-11); NEUTROPHILS 77.2 % (40-80); PLATELET COUNT 150 10x3/uL (130-400); RBC 4.54 10x6/uL (4.00-5.40); RDW 16.4 % (11.5-14.5); WBC 16.8 10x3/uL (4.8-10.8)
[2019-12-24 07:06] LABS: CALCIUM 9.2 mg/dL (8.5-10.1); CARBON DIOXIDE 32.9 mmol/L (21.0-32.0); CHLORIDE - SERUM 100 mmol/L (98-107); CREATININE - SERUM 0.8 mg/dL (0.6-1.3); GLUCOSE 81 mg/dL (74-106); SODIUM 141 mmol/L (136-145); THYROID STIMULATING HORMONE 4.77 uIU/mL (0.36-3.74); eGFR NON AFRICAN AMERICAN 75 mL/min (90-120)
--- NOTE | 2019-12-24 07:10 | NUR ---
RECEIVE BEDSIDE SHIFT REPORT. RESTLESS IN BED COMPLAINING OF PAIN IN LOWER BACK, 01/22. DUE FOR SCHEDULED PAIN MEDICATION. WILL REASSESS PAIN LEVEL. WILL CONTINUE PLAN OF CARE AND SAFETY PRECAUTIONS.
[2019-12-24 07:43] LABS: CALC OSMOLALITY 285 mosm/kg (275-300); UREA NITROGEN 29 mg/dL (7-18)
[2019-12-24 07:45] LABS: POTASSIUM - SERUM 2.8 mmol/L (3.5-5.1)
[2019-12-24 08:01] VITALS: BP 118/58
[2019-12-24 12:45] VITALS: Ht 167.6 cm; Wt 71.7 kg
[2019-12-24 13:28] VITALS: BP 115/85
[2019-12-24 16:50] VITALS: BP 111/74
--- NOTE | 2019-12-24 19:30 | NUR ---
PT RESTING IN BED WATCHING TV. SHE C/O CHRONIC LOWER BACK PAIN. SHE RATES HER PAIN 6/10. WILL GIVE TRAMADOL AND TYLENOL. SHE IS ON 3L HIGH FLOW NC. O2 SAT 92%. SHE DENIES FURTHER NEEDS. BED IS LOW AND CALL LIGHT WITHIN REACH.
[2019-12-24 21:26] VITALS: BP 114/76
[2019-12-25 04:02] VITALS: BP 124/81
--- NOTE | 2019-12-25 07:26 | NUR ---
Recieved patient resting in bed no complaints at this time .
[2019-12-25 07:58] VITALS: BP 128/84
[2019-12-25 11:53] VITALS: BP 119/59
[2019-12-25 16:10] VITALS: BP 110/74
--- NOTE | 2019-12-25 16:51 | MORECARE ---
CASE MANAGEMENT DISCHARGE SUMMARY PATIENT: MATTEO GANNON UNIT: [id number] ADM DATE: 12/23/19 AGE: 69 : 49 SEX: F ROOM/BED: D.2109 AUTHOR: VIOLA MCLEOD PHYSICIAN: REFERRING PHYSICIAN: MUNIRA ORTIZ MD DATE OF SERVICE: 12/25/19 Discharge Plan Patient Name: MATTEO GANNON [facility] [facility] 1950 [facility] Disposition: [facility] Facility Anticipated Discharge Date: Discharge Date: Expected LOS: Initial Reviewer: [email or web address] Initial Review Date: 12/25/2019 Generated: 12/25/19 5:50 pm DCPIA - Discharge Planning Initial Assessment Updated by [id number]: Leticia Olivarez on 12/25/19 4:47 pm * Is the patient Alert and Oriented? Yes * How many steps to enter\exit or inside your home? 2/3 * PCP Dr. Ortiz * Pharmacy [facility] [address] * Preadmission Environment Acute Inpatient Rehab * Facility Name [facility] * ADLs Partial Dependent * Partial ADLs (Assistance needed) Ambulation Bathing Dressing Toileting Transfers * Equipment Cane Other Oxygen Walker * Other Equipment Portable oxygen * List name and contact numbers for known caregivers / representatives who currently or will assist patient after discharge: Edward [facility] - [phone] * Verbal permission to speak to the caregivers and representatives has been obtained from the patient. Yes * Community resources currently utilized None * Please name any agencies selected above. DME for oxygen - [facility] * Additional services required to return to the preadmission environment? Yes * Can the patient safely return to the preadmission environment? Yes * Has this patient been hospitalized within the prior 30 days at any hospital? Yes Patient Name: MATTEO GANNON Page 30841 at 1651 All edits/amendments must be made on the electronic document DICTATION DATE: 12/25/191650 WIRELESS OPERATOR: RAJWINDER 12/25/191650 RPT#: [id number] DC DATE: STATUS: ADM IN [facility] [address] [place] [address] END OF REPORT
--- NOTE | 2019-12-25 16:59 | MORECARE ---
CASE MANAGEMENT DISCHARGE SUMMARY PATIENT: MATTEO GANNON UNIT: [id number] ADM DATE: 12/23/19 AGE: 69 : 49 SEX: F ROOM/BED: D.5936 AUTHOR: SHANIDOC PHYSICIAN: REFERRING PHYSICIAN: MUNIRA ORTIZ MD DATE OF SERVICE: 12/25/19 Discharge Plan Patient Name: MATTEO GANNON Facility: [facility]:[place] : 1950 Planned Disposition: Residential Facility Anticipated Discharge Date: Discharge Date: Expected LOS: Initial Reviewer: [email or web address] Initial Review Date: 12/25/2019 Generated: 12/25/19 5:58 pm Comments DCP- Discharge Planning Updated by [email or web address]: Leticia Olivarez on 12/25/19 3:[address] Patient Name: MATTEO GANNON Admission Status: Elective Accout number: [id number] Admission Date: 12-23-2019 : 1950 Admission Diagnosis: Attending: MUNIRA ORTIZ Current LOS: 2 Anticipated DC Date: Planned Disposition: Residential Facility Primary Insurance: MEDICARE A & B Discharge Planning Comments: CM met with patient to complete initial dc planning assessment. CM educated patient on the CM role and verbal consent given by patient to complete assessment. Patient lives at home with her spouse. Patient had been in inpatient rehab at [facility] prior to readmission. CM discussed availability of home health, rehab services, and medical equipment. Patient states she does not want to go to inpatient rehab again. She states that she feels she will need a skilled facility. MICHAEL for [facility] signed. I will send referral on Saturday. CM will continue to follow and will assist as needed with dc plans/needs. Form Grader: Leticia Olivarez DCPIA - Discharge Planning Initial Assessment Updated by [email or web address]: Leticia Olivarez on 12/25/19 4:47 pm * Is the patient Alert and Oriented? Yes * How many steps to enter\exit or inside your home? 2/3 * PCP Dr. Ortiz * Pharmacy [facility] [address] * Preadmission Environment Acute Inpatient Rehab * Facility Name [facility] * ADLs Partial Dependent * Partial ADLs (Assistance needed) Ambulation Bathing Dressing Toileting Transfers * Equipment Cane Other Oxygen Walker * Other Equipment Portable oxygen * List name and contact numbers for known caregivers / representatives who currently or will assist patient after discharge: Edward beavres - [phone] * Verbal permission to speak to the caregivers and representatives has been obtained from the patient. Yes * Community resources currently utilized None * Please name any agencies selected above. DME for oxygen - [facility] * Additional services required to return to the preadmission environment? Yes * Can the patient safely return to the preadmission environment? Yes * Has this patient been hospitalized within the prior 30 days at any hospital? Yes Coverage Notice Reviewer: [id number] Kendall Olivarez Notice Issued Date-Time: 12/25/2019 16:51 Notice Type: Patient Choice Letter Notice Delivered To: Patient Relationship to Patient: Self Cot Assembler Name: Delivery Method: HAND - Hand Delivered Ernestine Days: Prior Verbal Notification: Recipient Understood Notice: Yes Recipient Signature: Yes Med Rec Note Co-signed by Attending: Coverage Notice Comment: MICHAEL for [facility] and [place] Last DP export: 12/25/19 3:51 p Patient Name: MATTEO GANNON Page 30150 at 1659 All edits/amendments must be made on the electronic document DICTATION DATE: 12/25/191657 BOXING INSTRUCTOR: RAJWINDER 12/25/191657 RPT#: [id number] DC DATE: STATUS: ADM IN [facility] [address] [place] [address] END OF REPORT
[2019-12-25 22:07] VITALS: BP 119/79
[2019-12-26 02:07] VITALS: BP 119/82
[2019-12-26 05:51] VITALS: BP 115/78
[2019-12-26 07:00] VITALS: BP 128/79
[2019-12-26 11:00] VITALS: BP 122/71
[2019-12-26 15:00] VITALS: BP 114/82
--- NOTE | 2019-12-26 19:31 | NUR ---
RECIEVED UP IN BED WITH EYES OPEN AND TV ON. ALERT AND ORIENTED X4. REQUIRES EXTENISE ASSIST X3 WITH TRANSFERS. O2@ 3 LITERS PER N/C IN PLACE. IV TO LT FA SL. F/C INTACT WITH URINE DRAINING TO BEDSIDE DRAINAGE BAG. DENIES ANY NEEDS AT THIS TIME.
[2019-12-26 21:52] VITALS: BP 119/78
[2019-12-27 02:00] VITALS: BP 126/92
[2019-12-27 06:19] VITALS: BP 158/92
[2019-12-27 08:12] VITALS: BP 130/86
--- NOTE | 2019-12-27 09:22 | NUR ---
UP TO CHAIR WITH CASINO ASSISTANT MANAGER ASSIST. AT BS. CALL LIGHT IN REACH.
[2019-12-27 11:40] VITALS: BP 106/77
[2019-12-27 15:00] VITALS: BP 119/72
--- NOTE | 2019-12-27 18:39 | NUR ---
ULTRAM 2 TABS GIVEN, ORDER READS 1-2 Q 4 HRS.
[2019-12-27 20:00] VITALS: BP 122/82
--- NOTE | 2019-12-27 20:06 | NUR ---
REPORT RECEIVED, WILL CONT POC. A&O, TALKING ON THE PHONE WITH FAMILY. NO S/S OF DISTRESS OBSERVED. RR EVEN AND UNLABORED ON 3L OF HIGH FLOW O2 VIA NC. PT DENIES NEEDS AT THIS TIME. BED LOCKED AND LOWERED, CALL LIGHT IN REACH. ASSESSMENT COMPLETED AT THIS TIME. WILL CONT TO MONITOR.
[2019-12-28] VITALS: BP 148/87
[2019-12-28 04:00] VITALS: BP 144/64
[2019-12-28 07:33] VITALS: BP 134/82
[2019-12-28 11:56] VITALS: BP 112/70
--- NOTE | 2019-12-28 12:46 | NUR ---
Nutrition Follow-up: Pt reports appetite slightly better but c/o sores in her mouth; states Nystatin only helping for short periods. Denies N/V. Declines Ensure/Boost but agreed to try Magic Cup. Diet: Regular PO intake: 67% avg x 3 meals yesterday No new wt; last wt: 158# (12/23) No new labs Meds noted: Nystatin, Prednisone, Lasix, KDur, vitamin D, Oscal D, Protonix, electrolyte protocol -Encourage PO intake and honor food preferences within diet restrictions. -Magic Cup sent with lunch today for pt trial. -Need new wt; noted daily wts ordered. -RD following.
--- NOTE | 2019-12-28 14:13 | MORECARE ---
CASE MANAGEMENT DISCHARGE SUMMARY PATIENT: MATTEO GANNON UNIT: [id number] ADM DATE: 12/23/19 AGE: 69 : 49 SEX: F ROOM/BED: D.5101 AUTHOR: SHANIDOC PHYSICIAN: REFERRING PHYSICIAN: MUNIRA ORTIZ MD DATE OF SERVICE: 12/28/19 Discharge Plan Patient Name: MATTEO GANNON Facility: [facility]:[place] : 1950 Planned Disposition: Nursing Home Facility Anticipated Discharge Date: Discharge Date: Expected LOS: Initial Reviewer: [email or web address] Initial Review Date: 12/25/2019 Generated: 12/28/19 3:13 pm Comments DCP- Discharge Planning Updated by [id number]: Leticia Olivarez on 12/25/19 3:[address] Patient Name: MATTEO GANNON Admission Status: Elective Accout number: [id number] Admission Date: 12-23-2019 : 1950 Admission Diagnosis: Attending: MUNIRA ORTIZ Current LOS: 2 Anticipated DC Date: Planned Disposition: Nursing Home Facility Primary Insurance: MEDICARE A & B Discharge Planning Comments: CM met with patient to complete initial dc planning assessment. CM educated patient on the CM role and verbal consent given by patient to complete assessment. Patient lives at home with her spouse. Patient had been in inpatient rehab at [facility] prior to readmission. CM discussed availability of home health, rehab services, and medical equipment. Patient states she does not want to go to inpatient rehab again. She states that she feels she will need a skilled facility. MICHAEL for [facility] signed. I will send referral on Saturday. CM will continue to follow and will assist as needed with dc plans/needs. Box Annealer: Leticia Olivarez DCPIA - Discharge Planning Initial Assessment Updated by [id number]: Leticia Olivarez on 12/25/19 4:47 pm * Is the patient Alert and Oriented? Yes * How many steps to enter\exit or inside your home? 2/3 * PCP Dr. Ortiz * Pharmacy [facility] [address] * Preadmission Environment Acute Inpatient Rehab * Facility Name [facility] * ADLs Partial Dependent * Partial ADLs (Assistance needed) Ambulation Bathing Dressing Toileting Transfers * Equipment Cane Other Oxygen Walker * Other Equipment Portable oxygen * List name and contact numbers for known caregivers / representatives who currently or will assist patient after discharge: Edward beavers - [phone] * Verbal permission to speak to the caregivers and representatives has been obtained from the patient. Yes * Community resources currently utilized None * Please name any agencies selected above. DME for oxygen - [facility] * Additional services required to return to the preadmission environment? Yes * Can the patient safely return to the preadmission environment? Yes * Has this patient been hospitalized within the prior 30 days at any hospital? Yes External Providers External Provider: [facility] Next Contact Date: Service Request Date: Service Type: Resolution: Reviewer: Comments: Coverage Notice Reviewer: [id number] Kendall Olivarez Notice Issued Date-Time: 12/25/2019 16:51 Notice Type: Patient Choice Letter Notice Delivered To: Patient Relationship to Patient: Self Certified Pest Control Technician Name: Delivery Method: HAND - Hand Delivered Ernestine Days: Prior Verbal Notification: Recipient Understood Notice: Yes Recipient Signature: Yes Med Rec Note Co-signed by Attending: Coverage Notice Comment: MICHAEL for [facility] and [place] Last DP export: 12/25/19 3:59 p Patient Name: MATTEO GANNON Page 01043 at 1413 All edits/amendments must be made on the electronic document DICTATION DATE: 12/28/191412 SUPPORT SPECIALIST: RAJWINDER 12/28/19 141 RPT#: [id number] DC DATE: STATUS: ADM IN [facility] [address] [place] [address] END OF REPORT
--- NOTE | 2019-12-28 14:30 | MORECARE ---
CASE MANAGEMENT DISCHARGE SUMMARY PATIENT: MATTEO GANNON UNIT: [id number] ADM DATE: 12/23/19 AGE: 69 : 49 SEX: F ROOM/BED: D.2879 AUTHOR: VIOLA MCLEOD PHYSICIAN: REFERRING PHYSICIAN: MUNIRA ORTIZ MD DATE OF SERVICE: 12/28/19 Discharge Plan Patient Name: MATTEO GANNON Facility: [facility]:[place] : 1950 Planned Disposition: Fdc Facility Anticipated Discharge Date: Discharge Date: Expected LOS: Initial Reviewer: [email or web address] Initial Review Date: 12/25/2019 Generated: 12/28/19 3:29 pm Comments DCP- Discharge Planning Updated by [id number]: Leticia Sharpjt on 12/28/19 1:[address] CM met with patient and spouse. Spouse states he is unsure if they are going to need inpatient rehab or SNF at this time. If they need a SNF, they choose [facility]. I spoke with Kandace in inpatient rehab and she states at this point, she is too low level for inpatient rehab and would need a skilled facility. She will need a Covid screen for admission. I faxed clinical to [facility]. I informed Aubrie, liaison for [facility], that I was faxing clinical for review... not ready for discharge yet. CM will continue to follow and assist with discharge planning/needs. DCP- Discharge Planning Updated by [email or web address]: Leticia Olivarez on 12/25/19 3:[address] Patient Name: MATTEO GANNON Admission Status: Elective Accout number: [id number] Admission Date: 12-23-2019 : 1950 Admission Diagnosis: Attending: MUNIRA ORTIZ Current LOS: 2 Anticipated DC Date: Planned Disposition: Fdc Facility Primary Insurance: MEDICARE A & B Discharge Planning Comments: CM met with patient to complete initial dc planning assessment. CM educated patient on the CM role and verbal consent given by patient to complete assessment. Patient lives at home with her spouse. Patient had been in inpatient rehab at [facility] prior to readmission. CM discussed availability of home health, rehab services, and medical equipment. Patient states she does not want to go to inpatient rehab again. She states that she feels she will need a skilled facility. MICHAEL for [place] signed. I will send referral on Saturday. CM will continue to follow and will assist as needed with dc plans/needs. Mobile Patrol Officer: Leticia Olivarez DCPIA - Discharge Planning Initial Assessment Updated by [id number]: Leticia Olivarez on 12/25/19 4:47 pm * Is the patient Alert and Oriented? Yes * How many steps to enter\exit or inside your home? 2/3 * PCP Dr. Ortiz * Pharmacy [facility] [address] * Preadmission Environment Acute Inpatient Rehab * Facility Name [facility] * ADLs Partial Dependent * Partial ADLs (Assistance needed) Ambulation Bathing Dressing Toileting Transfers * Equipment Cane Other Oxygen Walker * Other Equipment Portable oxygen * List name and contact numbers for known caregivers / representatives who currently or will assist patient after discharge: Edward beavers - [phone] * Verbal permission to speak to the caregivers and representatives has been obtained from the patient. Yes * Community resources currently utilized None * Please name any agencies selected above. DME for oxygen - [facility] * Additional services required to return to the preadmission environment? Yes * Can the patient safely return to the preadmission environment? Yes * Has this patient been hospitalized within the prior 30 days at any hospital? Yes Coverage Notice Reviewer: [id number] - Leticia Olivarez Notice Issued Date-Time: 12/25/2019 16:51 Notice Type: Patient Choice Letter Notice Delivered To: Patient Relationship to Patient: Self Sensitometrist Name: Delivery Method: HAND - Hand Delivered Ernestine Days: Prior Verbal Notification: Recipient Understood Notice: Yes Recipient Signature: Yes Med Rec Note Co-signed by Attending: Coverage Notice Comment: MICHAEL for [facility] and [place] Last DP export: 12/28/19 1:13 p Patient Name: MATTEO GANNON Page 24071 at 1430 All edits/amendments must be made on the electronic document DICTATION DATE: 12/28/191428 COMMUNITY YOUTH SECRETARY: RAJWINDER 12/28/191428 RPT#: [id number] DC DATE: STATUS: ADM IN [facility] [address] [place] [address] END OF REPORT
[2019-12-28 16:12] VITALS: BP 117/75
[2019-12-28 20:00] VITALS: BP 115/74
--- NOTE | 2019-12-28 20:00 | NUR ---
REPORT RECEIVED, WILL CONT POC. PT A&O, UP IN BED WATCHING A MOVIE ON HER PHONE. NO S/S OF DISTRESS OBSERVED. RR EVEN AND UNLABORED ON 3L VIA NS. PT DENIES NEEDS AT THIS TIME. BED LOCKED AND LOWERED, CALL LIGHT IN REACH. ASSESSMENT COMPLETED AT THIS TIME. WILL CONT TO MONITOR.
[2019-12-29 04:00] VITALS: BP 139/87
[2019-12-29 07:00] VITALS: BP 128/88
--- NOTE | 2019-12-29 08:30 | NUR ---
PT SITTING UP IN BED. WTACHING TV. AT BEDSIDE. PT STATES SHE HAS NO FURTHER NEEDS AT THIS TIME. BED LOW. CL IN REACH.
[2019-12-29 11:00] VITALS: BP 120/82
[2019-12-29 14:00] VITALS: BP 111/77
--- NOTE | 2019-12-29 17:51 | NUR ---
I have reviewed this patient and I concur with the Shift Assessment completed by the Licensed Practical Nurse today this shift.
[2019-12-29 20:00] VITALS: BP 122/77
--- NOTE | 2019-12-29 20:00 | NUR ---
REPORT RECEIVED, WILL CONT POC. PT A&O, UP IN BED WATCHING TV. NO S/S OF DISTRESS OBSERVED. RR EVEN AND UNLABORED ON 3L VIA NC. PT DENIES NEEDS AT THIS TIME. BED LOCKED AND LOWERED, CALL LIGHT IN REACH. ASSESSMENT COMPLETED AT THIS TIME. WILL CONT TO MONITOR.
[2019-12-30 04:00] VITALS: BP 155/92
[2019-12-30 08:00] VITALS: BP 123/73
--- NOTE | 2019-12-30 11:40 | NUR ---
I have reviewed this patient and I concur with the Shift Assessment completed by the Licensed Practical Nurse today this shift.
--- NOTE | 2019-12-30 12:30 | NUR ---
PT HAD LARGE BM.
--- NOTE | 2019-12-30 12:38 | NUR ---
Nutrition Follow-up: Pt reports appetite improving. Ate majority of breakfast this AM. Requested Magic Cup with lunch today. Denies N/V. -BM; +flatus. Noted 1x dose of Dulcolax ordered this AM. Diet: Regular No new wt; last wt: 158# (12/23) Labs reviewed Meds noted: Dulcolax, Nystatin, Prednisone, KDur, Lasix, vitamin D, Oscal D, Protonix -Encourage PO intake and honor food preferences within diet restrictions. -Magic Cup sent with lunch today per pt request. -Need new wt; noted daily wts ordered. -RD following.
--- NOTE | 2019-12-30 13:51 | MORECARE ---
CASE MANAGEMENT DISCHARGE SUMMARY PATIENT: MATTEO GANNON UNIT: [id number] ADM DATE: 12/23/19 AGE: 69 : 49 SEX: F ROOM/BED: D.2490 AUTHOR: SHANI,DOC PHYSICIAN: REFERRING PHYSICIAN: MUNIRA ORTIZ MD DATE OF SERVICE: 12/30/19 Discharge Plan Patient Name: MATTEO GANNON Facility: [facility]:[place] : 1950 Planned Disposition: Snf Facility Anticipated Discharge Date: Discharge Date: Expected LOS: Initial Reviewer: [email or web address] Initial Review Date: 12/25/2019 Generated: 12/30/19 2:51 pm Comments DCP- Discharge Planning Updated by [email or web address]: Leticia Olivarez on 12/30/19 12:[address] Updated notes faxed to [facility] and I spoke with Aubrie. Informed pain investigation was still in progress. CM will continue to follow and assist with discharge planning/needs. DCP- Discharge Planning Updated by [id number]: Leticia Olivarez on 12/28/19 1:[address] CM met with patient and spouse. Spouse states he is unsure if they are going to need inpatient rehab or SNF at this time. If they need a SNF, they choose [facility]. I spoke with Kandace in inpatient rehab and she states at this point, she is too low level for inpatient rehab and would need a skilled facility. She will need a Covid screen for admission. I faxed clinical to [facility]. I informed Aubrie, liaison for [facility], that I was faxing clinical for review... not ready for discharge yet. CM will continue to follow and assist with discharge planning/needs. DCP- Discharge Planning Updated by [id number]: Letiica Olivarez on 12/25/19 3:[address] Patient Name: MATTEO GANNON Admission Status: Elective Accout number: [id number] Admission Date: 12-23-2019 : 1950 Admission Diagnosis: Attending: MUNIRA ORTIZ Current LOS: 2 Anticipated DC Date: Planned Disposition: Snf Facility Primary Insurance: MEDICARE A & B Discharge Planning Comments: CM met with patient to complete initial dc planning assessment. CM educated patient on the CM role and verbal consent given by patient to complete assessment. Patient lives at home with her spouse. Patient had been in inpatient rehab at [facility] prior to readmission. CM discussed availability of home health, rehab services, and medical equipment. Patient states she does not want to go to inpatient rehab again. She states that she feels she will need a skilled facility. MICHAEL for [facility] signed. I will send referral on Saturday. CM will continue to follow and will assist as needed with dc plans/needs. Bilingual Secretary: Leticiaprincess Olivarez DCPIA - Discharge Planning Initial Assessment Updated by [id number]: Leticia Olivarez on 12/25/19 4:47 pm * Is the patient Alert and Oriented? Yes * How many steps to enter\exit or inside your home? 2/3 * PCP Dr. Ortiz * Pharmacy [facility] [address] * Preadmission Environment Acute Inpatient Rehab * Facility Name [facility] * ADLs Partial Dependent * Partial ADLs (Assistance needed) Ambulation Bathing Dressing Toileting Transfers * Equipment Cane Other Oxygen Walker * Other Equipment Portable oxygen * List name and contact numbers for known caregivers / representatives who currently or will assist patient after discharge: Edward beavers - [phone] * Verbal permission to speak to the caregivers and representatives has been obtained from the patient. Yes * Community resources currently utilized None * Please name any agencies selected above. DME for oxygen - [facility] * Additional services required to return to the preadmission environment? Yes * Can the patient safely return to the preadmission environment? Yes * Has this patient been hospitalized within the prior 30 days at any hospital? Yes Coverage Notice Reviewer: [id number] - Leticia Sher Notice Issued Date-Time: 12/25/2019 16:51 Notice Type: Patient Choice Letter Notice Delivered To: Patient Relationship to Patient: Self Rn L And D Name: Delivery Method: HAND - Hand Delivered Ernestine Days: Prior Verbal Notification: Recipient Understood Notice: Yes Recipient Signature: Yes Med Rec Note Co-signed by Attending: Coverage Notice Comment: MICHAEL for [facility] and [facility] Last DP export: 12/28/19 1:30 p Patient Name: MATTEO GANNON Page [phone] Electronically Signed by VIOLA [facility] WOODWARDAlissa on 12/30/19 at 1351 All edits/amendments must be made on the electronic document DICTATION DATE: 12/30/19 1351 LABORATORY MANAGER: RAJWINDER 12/30/19 1351 RPT#: [id number] DC DATE: STATUS: ADM IN [facility] [address] [place] [address] END OF REPORT
--- NOTE | 2019-12-30 19:30 | NUR ---
PT IN BED, RESP EVEN AND UNLABORED, NO DISTRESS NOTED, CL IN REACH, SR UP X 2.
[2019-12-30 20:00] VITALS: BP 124/81
[2019-12-31] VITALS: BP 121/83; BP 136/83
[2019-12-31 07:50] VITALS: BP 121/80
--- NOTE | 2019-12-31 09:11 | MORECARE ---
CASE MANAGEMENT DISCHARGE SUMMARY PATIENT: MATTEO GANNON UNIT: [id number] ADM DATE: 12/23/19 AGE: 69 : 49 SEX: F ROOM/BED: D.0432 AUTHOR: SHANI,DOC PHYSICIAN: REFERRING PHYSICIAN: MUNIRA ORTIZ MD DATE OF SERVICE: 12/31/19 Discharge Plan Patient Name: MATTEO GANNON Facility: [facility]:[place] : 1950 Planned Disposition: Half-Way Facility Anticipated Discharge Date: Discharge Date: Expected LOS: Initial Reviewer: [email or web address] Initial Review Date: 12/25/2019 Generated: 12/31/19 10:11 am Comments DCP- Discharge Planning Updated by [email or web address]: Leticia Olivarez on 12/30/19 12:[address] Updated notes faxed to [facility] and I spoke with Aubrie. Informed pain investigation was still in progress. CM will continue to follow and assist with discharge planning/needs. DCP- Discharge Planning Updated by [id number]: Leticia Olivarez on 12/28/19 1:[address] CM met with patient and spouse. Spouse states he is unsure if they are going to need inpatient rehab or SNF at this time. If they need a SNF, they choose [facility]. I spoke with Kandace in inpatient rehab and she states at this point, she is too low level for inpatient rehab and would need a skilled facility. She will need a Covid screen for admission. I faxed clinical to [facility]. I informed Aubrie, liaison for [facility], that I was faxing clinical for review... not ready for discharge yet. CM will continue to follow and assist with discharge planning/needs. DCP- Discharge Planning Updated by [email or web address]: Leticia Olivarez on 12/25/19 3:[address] Patient Name: MATTEO GANNON Admission Status: Elective Accout number: [id number] Admission Date: 12-23-2019 : 1950 Admission Diagnosis: Attending: MUNIRA ORTIZ Current LOS: 2 Anticipated DC Date: Planned Disposition: Half-Way Facility Primary Insurance: MEDICARE A & B Discharge Planning Comments: CM met with patient to complete initial dc planning assessment. CM educated patient on the CM role and verbal consent given by patient to complete assessment. Patient lives at home with her spouse. Patient had been in inpatient rehab at [facility] prior to readmission. CM discussed availability of home health, rehab services, and medical equipment. Patient states she does not want to go to inpatient rehab again. She states that she feels she will need a skilled facility. MICHAEL for [facility] signed. I will send referral on Saturday. CM will continue to follow and will assist as needed with dc plans/needs. Community Program Assistant: Leticia Sharpjt DCPIA - Discharge Planning Initial Assessment Updated by [email or web address]: Leticia Sher on 12/25/19 4:47 pm * Is the patient Alert and Oriented? Yes * How many steps to enter\exit or inside your home? 2/3 * PCP Dr. Ortiz * Pharmacy [facility] [address] * Preadmission Environment Acute Inpatient Rehab * Facility Name [facility] * ADLs Partial Dependent * Partial ADLs (Assistance needed) Ambulation Bathing Dressing Toileting Transfers * Equipment Cane Other Oxygen Walker * Other Equipment Portable oxygen * List name and contact numbers for known caregivers / representatives who currently or will assist patient after discharge: Edward beavers - [phone] * Verbal permission to speak to the caregivers and representatives has been obtained from the patient. Yes * Community resources currently utilized None * Please name any agencies selected above. DME for oxygen - [facility] * Additional services required to return to the preadmission environment? Yes * Can the patient safely return to the preadmission environment? Yes * Has this patient been hospitalized within the prior 30 days at any hospital? Yes External Providers External Provider: [facility] Next Contact Date: Service Request Date: Service Type: Resolution: Reviewer: Comments: Coverage Notice Reviewer: [id number] - Leticia Olivarez Notice Issued Date-Time: 12/25/2019 16:51 Notice Type: Patient Choice Letter Notice Delivered To: Patient Relationship to Patient: Self Geophysics Scientist Name: Delivery Method: HAND - Hand Delivered Ernestine Days: Prior Verbal Notification: Recipient Understood Notice: Yes Recipient Signature: Yes Med Rec Note Co-signed by Attending: Coverage Notice Comment: MICHAEL for [facility] and [facility] Last DP export: 12/30/19 12:51 p Patient Name: MATTEO GANNON Page [id number] at 0911 All edits/amendments must be made on the electronic document DICTATION DATE: 12/31/19910 EDUCATION INTERN: RAJWINDER 12/31/19910 RPT#: [id number] DC DATE: STATUS: ADM IN [facility] [address] [place] [address] END OF REPORT
--- NOTE | 2019-12-31 09:25 | MORECARE ---
CASE MANAGEMENT DISCHARGE SUMMARY PATIENT: MATTEO GANNON UNIT: [id number] ADM DATE: 12/23/19 AGE: 69 : 49 SEX: F ROOM/BED: D.0610 AUTHOR: SHANI,DOC PHYSICIAN: REFERRING PHYSICIAN: MUNIRA ORTIZ MD DATE OF SERVICE: 12/31/19 Discharge Plan Patient Name: MATTEO GANNON Facility: [facility]:[place] : 1950 Planned Disposition: Fpc Facility Anticipated Discharge Date: Discharge Date: Expected LOS: Initial Reviewer: [email or web address] Initial Review Date: 12/25/2019 Generated: 12/31/19 10:24 am Comments DCP- Discharge Planning Updated by [id number]: Leticia Olivarez on 12/31/19 8:[address] CM spoke with patient regarding post acute care plan. She states she would still like [facility] if they are accepting patients. States she would like inpatient rehab at [facility] if not. I informed her that she would need to participate in 3 hours of therapy a day for inpatient rehab and did not think she could tolerate that. She still requests a referral. States if [employer] will allow visitation, she may do [employer]. I spoke with liaison for [facility], [facility] Plascencia and Aubrie Hudson,. Aubrie states [facility] is not accepting at this time. States she will check with [facility] Plascencia and [facility] if they are allowing outside visitation. Inpatient rehab screen ordered. CM will continue to follow and assist with discharge planning/needs. DCP- Discharge Planning Updated by [id number]: Leticia Olivarez on 12/30/19 12:[address] Updated notes faxed to [facility] and I spoke with Aubrie. Informed pain investigation was still in progress. CM will continue to follow and assist with discharge planning/needs. DCP- Discharge Planning Updated by [id number]: Leticia Olivarez on 12/28/19 1:[address] CM met with patient and spouse. Spouse states he is unsure if they are going to need inpatient rehab or SNF at this time. If they need a SNF, they choose [facility]. I spoke with Kandace in inpatient rehab and she states at this point, she is too low level for inpatient rehab and would need a skilled facility. She will need a Covid screen for admission. I faxed clinical to [facility]. I informed Aubrie liaison for [facility], that I was faxing clinical for review... not ready for discharge yet. CM will continue to follow and assist with discharge planning/needs. DCP- Discharge Planning Updated by [email or web address]: Leticia Olivarez on 12/25/19 3:[address] Patient Name: MATTEO GANNON Admission Status: Elective Accout number: [id number] Admission Date: 12-23-2019 : 1950 Admission Diagnosis: Attending: MUNIRA ORTIZ Current LOS: 2 Anticipated DC Date: Planned Disposition: Fpc Facility Primary Insurance: MEDICARE A & B Discharge Planning Comments: CM met with patient to complete initial dc planning assessment. CM educated patient on the CM role and verbal consent given by patient to complete assessment. Patient lives at home with her spouse. Patient had been in inpatient rehab at [facility] prior to readmission. CM discussed availability of home health, rehab services, and medical equipment. Patient states she does not want to go to inpatient rehab again. She states that she feels she will need a skilled facility. MICHAEL for [facility] signed. I will send referral on Saturday. CM will continue to follow and will assist as needed with dc plans/needs. Sales Development Director: Leticia Olivarez DCPIA - Discharge Planning Initial Assessment Updated by [id number]: Leticia Olivarez on 12/25/19 4:47 pm * Is the patient Alert and Oriented? Yes * How many steps to enter\exit or inside your home? 2/3 * PCP Dr. Ortiz * Pharmacy [facility] [address] * Preadmission Environment Acute Inpatient Rehab * Facility Name [facility] * ADLs Partial Dependent * Partial ADLs (Assistance needed) Ambulation Bathing Dressing Toileting Transfers * Equipment Cane Other Oxygen Walker * Other Equipment Portable oxygen * List name and contact numbers for known caregivers / representatives who currently or will assist patient after discharge: Edward beavers - [phone] * Verbal permission to speak to the caregivers and representatives has been obtained from the patient. Yes * Community resources currently utilized None * Please name any agencies selected above. DME for oxygen - [facility] * Additional services required to return to the preadmission environment? Yes * Can the patient safely return to the preadmission environment? Yes * Has this patient been hospitalized within the prior 30 days at any hospital? Yes Coverage Notice Reviewer: [id number] Kendall Olivarez Notice Issued Date-Time: 12/25/2019 16:51 Notice Type: Patient Choice Letter Notice Delivered To: Patient Relationship to Patient: Self Aix Architect Name: Delivery Method: HAND - Hand Delivered Ernestine Days: Prior Verbal Notification: Recipient Understood Notice: Yes Recipient Signature: Yes Med Rec Note Co-signed by Attending: Coverage Notice Comment: MICHAEL for [facility] and [facility] Last DP export: 12/31/19 8:11 a Patient Name: MATTEO GANNON Page [id number] at 0925 All edits/amendments must be made on the electronic document DICTATION DATE: 12/31/19923 TOOL TURRET LATHE SET UP OPERATOR: RAJWINDER 12/31/19923 RPT#: [id number] DC DATE: STATUS: ADM IN [facility] [address] [place] [address] END OF REPORT
--- NOTE | 2019-12-31 09:58 | NUR ---
Rehab Note- Acute Inpatient Rehab prescreen order received. The patient was recently in our acute inpatient unit and was not participatory in the required 3hrs/day of therapy, and upon reviewing her medical record she continues to not be motivated or able to participate in the required 3hrs/day of therapy. Recommend a SNF level of care at this time. Thank you for this referral! Edith Perez RN Clinical Liaison, [facility] Rehab
[2019-12-31 11:42] VITALS: BP 108/76
--- NOTE | 2019-12-31 13:10 | MORECARE ---
CASE MANAGEMENT DISCHARGE SUMMARY PATIENT: MATTEO GANNON UNIT: [id number] ADM DATE: 12/23/19 AGE: 69 : 49 SEX: F ROOM/BED: D.2537 AUTHOR: SHANI,DOC PHYSICIAN: REFERRING PHYSICIAN: MUNIRA ORTIZ MD DATE OF SERVICE: 12/31/19 Discharge Plan Patient Name: MATTEO GANNON Facility: [facility]:[place] : 1950 Planned Disposition: Intermediate Facility Anticipated Discharge Date: Discharge Date: Expected LOS: Initial Reviewer: [email or web address] Initial Review Date: 12/25/2019 Generated: 12/31/19 2:10 pm Comments DCP- Discharge Planning Updated by [id number]: Leticia Olivarez on 12/31/19 12:[address] I spoke with patient and informed her that she was not accepted to inpatient rehab at [facility]. I gave her the option of [facility] or [facility] and Rehab. She states she should go to [facility] Rehab because she cannot tolerate 3 hours of therapy a day. I have informed Aubrie, and she has already sent the referral after speaking with patient's . DCP- Discharge Planning Updated by [id number]: Leticia Olivarez on 12/31/19 8:[address] CM spoke with patient regarding post acute care plan. She states she would still like [facility] if they are accepting patients. States she would like inpatient rehab at [facility] if not. I informed her that she would need to participate in 3 hours of therapy a day for inpatient rehab and did not think she could tolerate that. She still requests a referral. States if [facility] will allow visitation, she may do [facility]. I spoke with liaison for [facility], [facility] and [facility], Aubrie Patricia,. Aubrie states [facility] is not accepting at this time. States she will check with [facility] and [facility] if they are allowing outside visitation. Inpatient rehab screen ordered. CM will continue to follow and assist with discharge planning/needs. DCP- Discharge Planning Updated by [id number]: Leticia Olivarez on 12/30/19 12:[address] Updated notes faxed to [facility] and I spoke with Aubrie. Informed pain investigation was still in progress. CM will continue to follow and assist with discharge planning/needs. DCP- Discharge Planning Updated by [email or web address]: Leticia Sharpjt on 12/28/19 1:[address] CM met with patient and spouse. Spouse states he is unsure if they are going to need inpatient rehab or SNF at this time. If they need a SNF, they choose [facility]. I spoke with Kandace in inpatient rehab and she states at this point, she is too low level for inpatient rehab and would need a skilled facility. She will need a Covid screen for admission. I faxed clinical to [facility]. I informed Aubrie, liaison for [facility], that I was faxing clinical for review... not ready for discharge yet. CM will continue to follow and assist with discharge planning/needs. DCP- Discharge Planning Updated by [id number]: Leticia Sharpjt on 12/25/19 3:[address] Patient Name: MATTEO GANNON Admission Status: Elective Accout number: [id number] Admission Date: 12-23-2019 : 1950 Admission Diagnosis: Attending: MUNIRA ORTIZ Current LOS: 2 Anticipated DC Date: Planned Disposition: Intermediate Facility Primary Insurance: MEDICARE A & B Discharge Planning Comments: CM met with patient to complete initial dc planning assessment. CM educated patient on the CM role and verbal consent given by patient to complete assessment. Patient lives at home with her spouse. Patient had been in inpatient rehab at [facility] prior to readmission. CM discussed availability of home health, rehab services, and medical equipment. Patient states she does not want to go to inpatient rehab again. She states that she feels she will need a skilled facility. MICHAEL for [facility] signed. I will send referral on Saturday. CM will continue to follow and will assist as needed with dc plans/needs. Stone Layout Marker: Leticia Sher DCPIA - Discharge Planning Initial Assessment Updated by [email or web address]: Leticia Olivarez on 12/25/19 4:47 pm * Is the patient Alert and Oriented? Yes * How many steps to enter\exit or inside your home? 2/3 * PCP Dr. Ortiz * Pharmacy [facility] [address] * Preadmission Environment Acute Inpatient Rehab * Facility Name [facility] * ADLs Partial Dependent * Partial ADLs (Assistance needed) Ambulation Bathing Dressing Toileting Transfers * Equipment Cane Other Oxygen Walker * Other Equipment Portable oxygen * List name and contact numbers for known caregivers / representatives who currently or will assist patient after discharge: Edward beavers - [phone] * Verbal permission to speak to the caregivers and representatives has been obtained from the patient. Yes * Community resources currently utilized None * Please name any agencies selected above. DME for oxygen - [facility] * Additional services required to return to the preadmission environment? Yes * Can the patient safely return to the preadmission environment? Yes * Has this patient been hospitalized within the prior 30 days at any hospital? Yes Coverage Notice Reviewer: [id number] Kendall Olivarez Notice Issued Date-Time: 12/25/2019 16:51 Notice Type: Patient Choice Letter Notice Delivered To: Patient Relationship to Patient: Self Carding Utility Tender Name: Delivery Method: HAND - Hand Delivered Ernestine Days: Prior Verbal Notification: Recipient Understood Notice: Yes Recipient Signature: Yes Med Rec Note Co-signed by Attending: Coverage Notice Comment: MICHAEL for [facility] and [facility] Last DP export: 12/31/19 8:25 a Patient Name: MATTEO GANNON Page [id number] at 1310 All edits/amendments must be made on the electronic document DICTATION DATE: 12/31/19 1310 GENERAL ACTIVITIES THERAPIST: RAJWINDER 12/31/19 1310 RPT#: [id number] DC DATE: STATUS: ADM IN [facility] [address] [place] [address] END OF REPORT
--- NOTE | 2019-12-31 14:07 | MORECARE ---
CASE MANAGEMENT DISCHARGE SUMMARY PATIENT: MATTEO GANNON UNIT: [id number] ADM DATE: 12/23/19 AGE: 69 : 49 SEX: F ROOM/BED: D.1473 AUTHOR: SHANI,DOC PHYSICIAN: REFERRING PHYSICIAN: MUNIRA ORTIZ MD DATE OF SERVICE: 12/31/19 Discharge Plan Patient Name: MATTEO GANNON Facility: [facility]:[place] : 1950 Planned Disposition: Fci Facility Anticipated Discharge Date: Discharge Date: Expected LOS: Initial Reviewer: [email or web address] Initial Review Date: 12/25/2019 Generated: 12/31/19 3:07 pm Comments DCP- Discharge Planning Updated by [email or web address]: Leticia Olivarez on 12/31/19 12:[address] I spoke with patient and informed her that she was not accepted to inpatient rehab at [facility]. I gave her the option of [facility] or [facility] and Rehab. She states she should go to [facility] Rehab because she cannot tolerate 3 hours of therapy a day. I have informed Aubrie, and she has already sent the referral after speaking with patient's . DCP- Discharge Planning Updated by [email or web address]: Leticia Olivarez on 12/31/19 8:[address] CM spoke with patient regarding post acute care plan. She states she would still like [facility] if they are accepting patients. States she would like inpatient rehab at [facility] if not. I informed her that she would need to participate in 3 hours of therapy a day for inpatient rehab and did not think she could tolerate that. She still requests a referral. States if [facility] will allow visitation, she may do [facility]. I spoke with liaison for [facility], [place] and [place], Aubrie Patricia,. Aubrie states [facility] is not accepting at this time. States she will check with [facility] and [place] if they are allowing outside visitation. Inpatient rehab screen ordered. CM will continue to follow and assist with discharge planning/needs. DCP- Discharge Planning Updated by [id number]: Leticia Olivarez on 12/30/19 12:[address] Updated notes faxed to [facility] and I spoke with Aubrie. Informed pain investigation was still in progress. CM will continue to follow and assist with discharge planning/needs. DCP- Discharge Planning Updated by [email or web address]: Leticia Sharpjt on 12/28/19 1:[address] CM met with patient and spouse. Spouse states he is unsure if they are going to need inpatient rehab or SNF at this time. If they need a SNF, they choose [facility]. I spoke with Kandace in inpatient rehab and she states at this point, she is too low level for inpatient rehab and would need a skilled facility. She will need a Covid screen for admission. I faxed clinical to [facility]. I informed Aubrie, liaison for [facility], that I was faxing clinical for review... not ready for discharge yet. CM will continue to follow and assist with discharge planning/needs. DCP- Discharge Planning Updated by [id number]: Leticia Sharpjt on 12/25/19 3:[address] Patient Name: MATTEO GANNON Admission Status: Elective Accout number: [id number] Admission Date: 12-23-2019 : 1950 Admission Diagnosis: Attending: MUNIRA ORTIZ Current LOS: 2 Anticipated DC Date: Planned Disposition: Fci Facility Primary Insurance: MEDICARE A & B Discharge Planning Comments: CM met with patient to complete initial dc planning assessment. CM educated patient on the CM role and verbal consent given by patient to complete assessment. Patient lives at home with her spouse. Patient had been in inpatient rehab at [facility] prior to readmission. CM discussed availability of home health, rehab services, and medical equipment. Patient states she does not want to go to inpatient rehab again. She states that she feels she will need a skilled facility. MICHAEL for [facility] signed. I will send referral on Saturday. CM will continue to follow and will assist as needed with dc plans/needs. Figure Refinisher And Repairer: Leticia Sher DCPIA - Discharge Planning Initial Assessment Updated by [id number]: Leticia Olivarez on 12/25/19 4:47 pm * Is the patient Alert and Oriented? Yes * How many steps to enter\exit or inside your home? 2/3 * PCP Dr. Ortiz * Pharmacy [facility] [address] * Preadmission Environment Acute Inpatient Rehab * Facility Name [facility] * ADLs Partial Dependent * Partial ADLs (Assistance needed) Ambulation Bathing Dressing Toileting Transfers * Equipment Cane Other Oxygen Walker * Other Equipment Portable oxygen * List name and contact numbers for known caregivers / representatives who currently or will assist patient after discharge: Edward beavers - [phone] * Verbal permission to speak to the caregivers and representatives has been obtained from the patient. Yes * Community resources currently utilized None * Please name any agencies selected above. DME for oxygen - [facility] * Additional services required to return to the preadmission environment? Yes * Can the patient safely return to the preadmission environment? Yes * Has this patient been hospitalized within the prior 30 days at any hospital? Yes External Providers External Provider: [facility] Contact Date: Service Request Date: Service Type: Resolution: Reviewer: Comments: Coverage Notice Reviewer: [email or web address] Kendall Olivarez Notice Issued Date-Time: 12/25/2019 16:51 Notice Type: Patient Choice Letter Notice Delivered To: Patient Relationship to Patient: Self Rn Float Name: Delivery Method: HAND - Hand Delivered Ernestine Days: Prior Verbal Notification: Recipient Understood Notice: Yes Recipient Signature: Yes Med Rec Note Co-signed by Attending: Coverage Notice Comment: MICHAEL for [facility] and [place] Last DP export: 12/31/19 12:10 p Patient Name: MATTEO GANNON Page [phone] at 1407 All edits/amendments must be made on the electronic document DICTATION DATE: 12/31/19 1407 AUTOMATION CONTROLS SPECIALIST: RAJWINDER 12/31/19 1407 RPT#: [id number] DC DATE: STATUS: ADM IN [facility] [address] [place] [address] END OF REPORT
--- NOTE | 2019-12-31 14:16 | MORECARE ---
CASE MANAGEMENT DISCHARGE SUMMARY PATIENT: MATTEO GANNON UNIT: [id number] ADM DATE: 12/23/19 AGE: 69 : [birth year] SEX: F ROOM/BED: D.9707 AUTHOR: SHANI,DOC PHYSICIAN: REFERRING PHYSICIAN: MUNIRA ORTIZ MD DATE OF SERVICE: 12/31/19 Discharge Plan Patient Name: MATTEO GANNON Facility: [facility]:[place] : 1950 Planned Disposition: Nursing Home Facility Anticipated Discharge Date: Discharge Date: Expected LOS: Initial Reviewer: [id number] Initial Review Date: 12/25/2019 Generated: 12/31/19 3:15 pm Comments DCP- Discharge Planning Updated by [id number]: Leticia Sher on 12/31/19 1:[address] Patient's is here and wants to discuss rehab. He states that he would like a referral sent to [facility] and [facility]. He states he does not like that you cannot visit at [facility]. He states that [facility] reviews visitation daily. He states the other option is home with OP PT. I informed him that I did not feel this was a safe discharge because patient is unable to get out of bed. Patient states she agrees that she needs rehab. I faxed referral also to [facility] per their request. DCP- Discharge Planning Updated by [id number]: Leticia Sharpjt on 12/31/19 12:[address] I spoke with patient and informed her that she was not accepted to inpatient rehab at [facility]. I gave her the option of [facility] or [facility] and Rehab. She states she should go to [facility] because she cannot tolerate 3 hours of therapy a day. I have informed Aubrie, and she has already sent the referral after speaking with patient's . DCP- Discharge Planning Updated by [email or web address]: Leticia Sher on 12/31/19 8:[address] CM spoke with patient regarding post acute care plan. She states she would still like [facility] if they are accepting patients. States she would like inpatient rehab at [facility] if not. I informed her that she would need to participate in 3 hours of therapy a day for inpatient rehab and did not think she could tolerate that. She still requests a referral. States if [facility] will allow visitation, she may do [facility]. I spoke with liaison for [facility], [facility] and Aubrie Hudson,. Aubrie states [facility] is not accepting at this time. States she will check with [facility] and [facility] if they are allowing outside visitation. Inpatient rehab screen ordered. CM will continue to follow and assist with discharge planning/needs. DCP- Discharge Planning Updated by [id number]: Leticia Sher on 12/30/19 12:[address] Updated notes faxed to [facility] and I spoke with Aubrie. Informed pain investigation was still in progress. CM will continue to follow and assist with discharge planning/needs. DCP- Discharge Planning Updated by [id number]: Leticia Sharpjt on 12/28/19 1:[address] CM met with patient and spouse. Spouse states he is unsure if they are going to need inpatient rehab or SNF at this time. If they need a SNF, they choose [facility]. I spoke with Kandace in inpatient rehab and she states at this point, she is too low level for inpatient rehab and would need a skilled facility. She will need a Covid screen for admission. I faxed clinical to [facility]. I informed Aubrie, liaison for [facility], that I was faxing clinical for review... not ready for discharge yet. CM will continue to follow and assist with discharge planning/needs. DCP- Discharge Planning Updated by [id number]: Leticia Olivarez on 12/25/19 3:[address] Patient Name: MATTEO GANNON Admission Status: Elective Accout number: [id number] Admission Date: 12-23-2019 : 1950 Admission Diagnosis: Attending: MUNIRA ORTIZ Current LOS: 2 Anticipated DC Date: Planned Disposition: Nursing Home Facility Primary Insurance: MEDICARE A & B Discharge Planning Comments: CM met with patient to complete initial dc planning assessment. CM educated patient on the CM role and verbal consent given by patient to complete assessment. Patient lives at home with her spouse. Patient had been in inpatient rehab at [facility] prior to readmission. CM discussed availability of home health, rehab services, and medical equipment. Patient states she does not want to go to inpatient rehab again. She states that she feels she will need a skilled facility. MICHAEL for [facility] signed. I will send referral on Saturday. CM will continue to follow and will assist as needed with dc plans/needs. Electrical Equipment Tester: Leticia Olivarez DCPIA - Discharge Planning Initial Assessment Updated by [id number]: Leticia Olivarez on 12/25/19 4:47 pm * Is the patient Alert and Oriented? Yes * How many steps to enter\exit or inside your home? 2/3 * PCP Dr. Ortiz * Pharmacy [facility] [address] * Preadmission Environment Acute Inpatient Rehab * Facility Name [facility] * ADLs Partial Dependent * Partial ADLs (Assistance needed) Ambulation Bathing Dressing Toileting Transfers * Equipment Cane Other Oxygen Walker * Other Equipment Portable oxygen * List name and contact numbers for known caregivers / representatives who currently or will assist patient after discharge: Edward beavers - [phone] * Verbal permission to speak to the caregivers and representatives has been obtained from the patient. Yes * Community resources currently utilized None * Please name any agencies selected above. DME for oxygen - [facility] * Additional services required to return to the preadmission environment? Yes * Can the patient safely return to the preadmission environment? Yes * Has this patient been hospitalized within the prior 30 days at any hospital? Yes Coverage Notice Reviewer: [id number] - Leticia Olivarez Notice Issued Date-Time: 12/25/2019 16:51 Notice Type: Patient Choice Letter Notice Delivered To: Patient Relationship to Patient: Self Vacuum Forming Machine Operator Name: Delivery Method: HAND - Hand Delivered Ernestine Days: Prior Verbal Notification: Recipient Understood Notice: Yes Recipient Signature: Yes Med Rec Note Co-signed by Attending: Coverage Notice Comment: MICHAEL for [facility] and [facility] Last DP export: 12/31/19 1:07 p Patient Name: MATTEO GANNON Page [id number] at 1416 All edits/amendments must be made on the electronic document DICTATION DATE: 12/31/191414 PRINT COLOR MATCHER: RAJWINDER 12/31/191414 RPT#: [id number] DC DATE: STATUS: ADM IN [facility] [address] [place] [address] END OF REPORT
[2019-12-31 15:00] VITALS: BP 116/73
[2019-12-31 18:02] VITALS: BP 107/75
[2019-12-31 22:51] VITALS: BP 115/76
--- NOTE | 2020-01-01 00:19 | NUR ---
ALERT AND ORENTED ABLE TO VOICE NEEDS AND WANTS TO STAFF. RESTING IN BED WITH O2 AT 3 LETTERS /MIN.VIA N/C. IV TO LEFT FOREARM. HARD OF HEARING WITH HEARING AIDS ON BEDSID TABLE. CALL LIGHT AND WATER IN REACH. FOLLY CATH IN PLACE AND PATEN WITH URIN TO BAG. BED LOW AND LOCKED. UP WITH PT ASSIST.
[2020-01-01 04:00] VITALS: BP 141/90
[2020-01-01 07:54] VITALS: BP 129/89
--- NOTE | 2020-01-01 10:38 | MORECARE ---
CASE MANAGEMENT DISCHARGE SUMMARY PATIENT: MATTEO GANNON UNIT: [id number] ADM DATE: 12/23/19 AGE: 69 : 49 SEX: F ROOM/BED: D.3371 AUTHOR: VIOLA MCLEOD PHYSICIAN: REFERRING PHYSICIAN: MUNIRA ORTIZ MD DATE OF SERVICE: 01/01/20 Discharge Plan Patient Name: MATTEO GANNON Facility: [facility]:[place] : 1950 Planned Disposition: Half-Way Facility Anticipated Discharge Date: Discharge Date: Expected LOS: Initial Reviewer: [email or web address] Initial Review Date: 12/25/2019 Generated: 01/01/20 11:37 am Comments DCP- Discharge Planning Updated by [id number]: Leticia Olivarez on 01/01/20 9:[address] I spoke with Liliana at [facility] and they are accepting patient today. Aubrie states they are also accepting. I spoke with both patient and and they would like to go to [facility] Rehab. I called 's office and spoke with Carolin and informed her that I needed DC orders for [facility] inpatient rehab. DCP- Discharge Planning Updated by [id number]: Leticia Olivarez on 12/31/19 1:[address] Patient's is here and wants to discuss rehab. He states that he would like a referral sent to [facility] and [facility]. He states he does not like that you cannot visit at [facility]. He states that [facility] reviews visitation daily. He states the other option is home with OP PT. I informed him that I did not feel this was a safe discharge because patient is unable to get out of bed. Patient states she agrees that she needs rehab. I faxed referral also to [facility] per their request. DCP- Discharge Planning Updated by [id number]: Leticia Olivarez on 12/31/19 12:[address] I spoke with patient and informed her that she was not accepted to inpatient rehab at [facility]. I gave her the option of [facility] or [facility] and Rehab. She states she should go to [facility] Rehab because she cannot tolerate 3 hours of therapy a day. I have informed Aubrie, and she has already sent the referral after speaking with patient's . DCP- Discharge Planning Updated by [email or web address]: Leticia Sher on 12/31/19 8:[address] CM spoke with patient regarding post acute care plan. She states she would still like [facility] if they are accepting patients. States she would like inpatient rehab at [facility] if not. I informed her that she would need to participate in 3 hours of therapy a day for inpatient rehab and did not think she could tolerate that. She still requests a referral. States if [facility] will allow visitation, she may do [facility]. I spoke with liaison for [facility], [facility] and Aubrie Hudson,. Aubrie states [facility] is not accepting at this time. States she will check with [facility] and [facility] if they are allowing outside visitation. Inpatient rehab screen ordered. CM will continue to follow and assist with discharge planning/needs. DCP- Discharge Planning Updated by [id number]: Leticia Olivarez on 12/30/19 12:[address] Updated notes faxed to [facility] and I spoke with Aubrie. Informed pain investigation was still in progress. CM will continue to follow and assist with discharge planning/needs. DCP- Discharge Planning Updated by [id number]: Leticia Olivarez on 12/28/19 1:[address] CM met with patient and spouse. Spouse states he is unsure if they are going to need inpatient rehab or SNF at this time. If they need a SNF, they choose [facility]. I spoke with Kandace in inpatient rehab and she states at this point, she is too low level for inpatient rehab and would need a skilled facility. She will need a Covid screen for admission. I faxed clinical to [facility]. I informed Aubrie, liaison for [facility], that I was faxing clinical for review... not ready for discharge yet. CM will continue to follow and assist with discharge planning/needs. DCP- Discharge Planning Updated by [id number]: Leticia Olivarez on 12/25/19 3:[address] Patient Name: MATTEO GANNON Admission Status: Elective Accout number: [id number] Admission Date: 12-23-2019 : 1950 Admission Diagnosis: Attending: MUNIRA ORTIZ Current LOS: 2 Anticipated DC Date: Planned Disposition: Half-Way Facility Primary Insurance: MEDICARE A & B Discharge Planning Comments: CM met with patient to complete initial dc planning assessment. CM educated patient on the CM role and verbal consent given by patient to complete assessment. Patient lives at home with her spouse. Patient had been in inpatient rehab at [facility] prior to readmission. CM discussed availability of home health, rehab services, and medical equipment. Patient states she does not want to go to inpatient rehab again. She states that she feels she will need a skilled facility. MICHAEL for [facility] signed. I will send referral on Saturday. CM will continue to follow and will assist as needed with dc plans/needs. Repairer Switchgear: Leticia Olivarez DCPIA - Discharge Planning Initial Assessment Updated by [id number]: Leticia Olivarez on 12/25/19 4:47 pm * Is the patient Alert and Oriented? Yes * How many steps to enter\exit or inside your home? 2/3 * PCP Dr. Ortiz * Pharmacy [facility] [address] * Preadmission Environment Acute Inpatient Rehab * Facility Name [facility] * ADLs Partial Dependent * Partial ADLs (Assistance needed) Ambulation Bathing Dressing Toileting Transfers * Equipment Cane Other Oxygen Walker * Other Equipment Portable oxygen * List name and contact numbers for known caregivers / representatives who currently or will assist patient after discharge: Edward beavers - [phone] * Verbal permission to speak to the caregivers and representatives has been obtained from the patient. Yes * Community resources currently utilized None * Please name any agencies selected above. DME for oxygen - [facility] * Additional services required to return to the preadmission environment? Yes * Can the patient safely return to the preadmission environment? Yes * Has this patient been hospitalized within the prior 30 days at any hospital? Yes Coverage Notice Reviewer: [id number] Kendall Olivarez Notice Issued Date-Time: 12/25/2019 16:51 Notice Type: Patient Choice Letter Notice Delivered To: Patient Relationship to Patient: Self Entry Examiner Name: Delivery Method: HAND - Hand Delivered Ernestine Days: Prior Verbal Notification: Recipient Understood Notice: Yes Recipient Signature: Yes Med Rec Note Co-signed by Attending: Coverage Notice Comment: MICHAEL for [facility] and [facility] Reviewer: [email or web address] Kendall Olivarez Notice Issued Date-Time: 01/01/2020 10:28 Notice Type: IM Discharge Notice Notice Delivered To: Patient Relationship to Patient: Self Entry Examiner Name: Delivery Method: HAND - Hand Delivered Ernestine Days: Prior Verbal Notification: Recipient Understood Notice: Yes Recipient Signature: Yes Med Rec Note Co-signed by Attending: Coverage Notice Comment: IMM explained, signed, given, copy placed in MR Last DP export: 12/31/19 1:16 p Patient Name: MATTEO GANNON Page [id number] at 1038 All edits/amendments must be made on the electronic document DICTATION DATE: 01/01/20 1038 RESTAURANT EXPEDITOR: RAJWINDER 01/01/20 1038 RPT#: [id number] DC DATE: STATUS: ADM IN [facility] [address] [place] [address] END OF REPORT
[2020-01-01 11:29] VITALS: BP 131/86
--- NOTE | 2020-01-01 14:25 | MORECARE ---
CASE MANAGEMENT DISCHARGE SUMMARY PATIENT: MATTEO GANNON UNIT: [id number] ADM DATE: 12/23/19 AGE: 69 : [birth year] SEX: F ROOM/BED: D.7602 AUTHOR: SHANIDOC PHYSICIAN: REFERRING PHYSICIAN: MUNIRA ORTIZ MD DATE OF SERVICE: 01/01/20 Discharge Plan Patient Name: MATTEO GANNON Facility: [facility]:[place] : 1950 Planned Disposition: Senior Care Facility Anticipated Discharge Date: Discharge Date: Expected LOS: Initial Reviewer: [email or web address] Initial Review Date: 12/25/2019 Generated: 01/01/20 3:24 pm Comments DCP- Discharge Planning Updated by [email or web address]: Leticia Olivarez on 01/01/20 1:[address] Spouse asking when patient is going to be picked up. She does not have DC orders by Dr. Ortiz yet. I called Dr. Ortiz's office and spoke with Carolin and informed her to f/u on discharge orders. [facility] is accepting patient today. DCP- Discharge Planning Updated by [id number]: Leticia Olivarez on 01/01/20 9:[address] I spoke with Liliana at [facility] and they are accepting patient today. Aubrie states they are also accepting. I spoke with both patient and and they would like to go to [facility] Rehab. I called 's office and spoke with Carolin and informed her that I needed DC orders for [facility] inpatient rehab. DCP- Discharge Planning Updated by [id number]: Leticia Olivarez on 12/31/19 1:[address] Patient's is here and wants to discuss rehab. He states that he would like a referral sent to [facility] and [facility]. He states he does not like that you cannot visit at [facility]. He states that [facility] reviews visitation daily. He states the other option is home with OP PT. I informed him that I did not feel this was a safe discharge because patient is unable to get out of bed. Patient states she agrees that she needs rehab. I faxed referral also to [facility] per their request. DCP- Discharge Planning Updated by [id number]: Leticia Olivarez on 12/31/19 12:[address] I spoke with patient and informed her that she was not accepted to inpatient rehab at [facility]. I gave her the option of [facility] or [facility] and Rehab. She states she should go to [facility] because she cannot tolerate 3 hours of therapy a day. I have informed Aubrie, and she has already sent the referral after speaking with patient's . DCP- Discharge Planning Updated by [id number]: Leticia Olivarez on 12/31/19 8:[address] CM spoke with patient regarding post acute care plan. She states she would still like [facility] if they are accepting patients. States she would like inpatient rehab at [facility] if not. I informed her that she would need to participate in 3 hours of therapy a day for inpatient rehab and did not think she could tolerate that. She still requests a referral. States if [facility] will allow visitation, she may do [facility]. I spoke with liaison for [facility], [facility] and [facility],. Aubrie states [facility] is not accepting at this time. States she will check with [facility] and [facility] if they are allowing outside visitation. Inpatient rehab screen ordered. CM will continue to follow and assist with discharge planning/needs. DCP- Discharge Planning Updated by [id number]: Leticia Sharpjt on 12/30/19 12:[address] Updated notes faxed to [facility] and I spoke with Aubrie. Informed pain investigation was still in progress. CM will continue to follow and assist with discharge planning/needs. DCP- Discharge Planning Updated by [id number]: Leticia Sher on 12/28/19 1:[address] CM met with patient and spouse. Spouse states he is unsure if they are going to need inpatient rehab or SNF at this time. If they need a SNF, they choose [facility]. I spoke with Kandace in inpatient rehab and she states at this point, she is too low level for inpatient rehab and would need a skilled facility. She will need a Covid screen for admission. I faxed clinical to [facility]. I informed Aubrie, liaison for [facility], that I was faxing clinical for review... not ready for discharge yet. CM will continue to follow and assist with discharge planning/needs. DCP- Discharge Planning Updated by [id number]: Leticia Olivarez on 12/25/19 3:[address] Patient Name: MATTEO GANNON Admission Status: Elective Accout number: [id number] Admission Date: 12-23-2019 : 1950 Admission Diagnosis: Attending: MUNIRA ORTIZ Current LOS: 2 Anticipated DC Date: Planned Disposition: Senior Care Facility Primary Insurance: MEDICARE A & B Discharge Planning Comments: CM met with patient to complete initial dc planning assessment. CM educated patient on the CM role and verbal consent given by patient to complete assessment. Patient lives at home with her spouse. Patient had been in inpatient rehab at [facility] prior to readmission. CM discussed availability of home health, rehab services, and medical equipment. Patient states she does not want to go to inpatient rehab again. She states that she feels she will need a skilled facility. MICHAEL for [facility] signed. I will send referral on Saturday. CM will continue to follow and will assist as needed with dc plans/needs. Care Manager Cna: Leticia Olivarez DCPIA - Discharge Planning Initial Assessment Updated by [email or web address]: Leticia Olivarez on 12/25/19 4:47 pm * Is the patient Alert and Oriented? Yes * How many steps to enter\exit or inside your home? 2/3 * PCP Dr. Ortiz * [facility] [address] * Preadmission Environment Acute Inpatient Rehab * Facility Name [facility] * ADLs Partial Dependent * Partial ADLs (Assistance needed) Ambulation Bathing Dressing Toileting Transfers * Equipment Cane Other Oxygen Walker * Other Equipment Portable oxygen * List name and contact numbers for known caregivers / representatives who currently or will assist patient after discharge: Edward - spouse - [phone] * Verbal permission to speak to the caregivers and representatives has been obtained from the patient. Yes * Community resources currently utilized None * Please name any agencies selected above. DME for oxygen - [facility] * Additional services required to return to the preadmission environment? Yes * Can the patient safely return to the preadmission environment? Yes * Has this patient been hospitalized within the prior 30 days at any hospital? Yes Coverage Notice Reviewer: [id number] - Leticia Olivarez Notice Issued Date-Time: 12/25/2019 16:51 Notice Type: Patient Choice Letter Notice Delivered To: Patient Relationship to Patient: Self Food Processing Plant Manager Name: Delivery Method: HAND - Hand Delivered Ernestine Days: Prior Verbal Notification: Recipient Understood Notice: Yes Recipient Signature: Yes Med Rec Note Co-signed by Attending: Coverage Notice Comment: MICHAEL Bhakta Reviewer: [id number] Kendall Olivarez Notice Issued Date-Time: 01/01/2020 10:28 Notice Type: IM Discharge Notice Notice Delivered To: Patient Relationship to Patient: Self Food Processing Plant Manager Name: Delivery Method: HAND - Hand Delivered Ernestine Days: Prior Verbal Notification: Recipient Understood Notice: Yes Recipient Signature: Yes Med Rec Note Co-signed by Attending: Coverage Notice Comment: IMM explained, signed, given, copy placed in MR Last DP export: 01/01/20 9:38 a Patient Name: MATTEO GANNON Page [phone] at 1425 All edits/amendments must be made on the electronic document DICTATION DATE: 01/01/20 142 NITRIC ACID PLANT OPERATOR: RAJWINDER 01/01/20 1424 RPT#: [id number] DC DATE: STATUS: ADM IN [facility] [address] [place] [address] END OF REPORT
[2020-01-01] MEDS ORDERED: ULTRAM50 MG PO (14:56)
[2020-01-01] MEDS ORDERED: IPRAT-ALBUT 0.5-3 ML UPD (15:31)
--- NOTE | 2020-01-04 08:53 | MORECARE ---
CASE MANAGEMENT DISCHARGE SUMMARY PATIENT: MATTEO GANNON UNIT: [id number] ADM DATE: 12/23/19 AGE: 69 : [birth year] SEX: F ROOM/BED: D.6822 AUTHOR: SHANI,DOC PHYSICIAN: REFERRING PHYSICIAN: MUNIRA ORTIZ MD DATE OF SERVICE: 01/04/20 Discharge Plan Patient Name: MATTEO GANNON Facility: [facility]:[place] : 1950 Planned Disposition: [facility] Facility Anticipated Discharge Date: Discharge Date: 01/01/2020 Expected LOS: Initial Reviewer: [id number] Initial Review Date: 12/25/2019 Generated: 01/04/20 9:52 am Comments DCP- Discharge Planning Updated by [email or web address]: Leticia Olivarez on 01/01/20 1:[address] Spouse asking when patient is going to be picked up. She does not have DC orders by Dr. Ortiz yet. I called Dr. Ortiz's office and spoke with Carolin and informed her to f/u on discharge orders. [facility] is accepting patient today. DCP- Discharge Planning Updated by [id number]: Leticia Olivarez on 01/01/20 9:[address] I spoke with Liliana at [facility] and they are accepting patient today. Aubrie states they are also accepting. I spoke with both patient and and they would like to go to [facility]. I called 's office and spoke with Carolin and informed her that I needed DC orders for [facility] inpatient rehab. DCP- Discharge Planning Updated by [email or web address]: Leticia Olivarez on 12/31/19 1:[address] Patient's is here and wants to discuss rehab. He states that he would like a referral sent to [facility] and [facility]. He states he does not like that you cannot visit at [facility]. He states that [facility] reviews visitation daily. He states the other option is home with OP PT. I informed him that I did not feel this was a safe discharge because patient is unable to get out of bed. Patient states she agrees that she needs rehab. I faxed referral also to [facility] per their request. DCP- Discharge Planning Updated by [email or web address]: Leticia Olivarez on 12/31/19 12:[address] I spoke with patient and informed her that she was not accepted to inpatient rehab at [facility]. I gave her the option of [facility] or [facility] and Rehab. She states she should go to [facility] because she cannot tolerate 3 hours of therapy a day. I have informed Aubrie, and she has already sent the referral after speaking with patient's . DCP- Discharge Planning Updated by [id number]: Leticia Olivarez on 12/31/19 8:[address] CM spoke with patient regarding post acute care plan. She states she would still like [facility] if they are accepting patients. States she would like inpatient rehab at [facility] if not. I informed her that she would need to participate in 3 hours of therapy a day for inpatient rehab and did not think she could tolerate that. She still requests a referral. States if [facility] will allow visitation, she may do [facility]. I spoke with liaison for [facility], [facility] and [facility],. Aubrie states [facility] is not accepting at this time. States she will check with [facility] and [facility] if they are allowing outside visitation. Inpatient rehab screen ordered. CM will continue to follow and assist with discharge planning/needs. DCP- Discharge Planning Updated by [id number]: Leticia Olivarez on 12/30/19 12:[address] Updated notes faxed to [facility] and I spoke with Aubrie. Informed pain investigation was still in progress. CM will continue to follow and assist with discharge planning/needs. DCP- Discharge Planning Updated by [id number]: Leticia Olivarez on 12/28/19 1:[address] CM met with patient and spouse. Spouse states he is unsure if they are going to need inpatient rehab or SNF at this time. If they need a SNF, they choose [facility]. I spoke with Kandace in inpatient rehab and she states at this point, she is too low level for inpatient rehab and would need a skilled facility. She will need a Covid screen for admission. I faxed clinical to [facility]. I informed Aubrie, liaison for [facility], that I was faxing clinical for review... not ready for discharge yet. CM will continue to follow and assist with discharge planning/needs. DCP- Discharge Planning Updated by [id number]: Leticia Olivarez on 12/25/19 3:[address] Patient Name: MATTEO GANNON Admission Status: Elective Accout number: [id number] Admission Date: 12-23-2019 : 1950 Admission Diagnosis: Attending: MUNIRA ORTIZ Current LOS: 2 Anticipated DC Date: Planned Disposition: [facility] Facility Primary Insurance: MEDICARE A & B Discharge Planning Comments: CM met with patient to complete initial dc planning assessment. CM educated patient on the CM role and verbal consent given by patient to complete assessment. Patient lives at home with her spouse. Patient had been in inpatient rehab at [facility] prior to readmission. CM discussed availability of home health, rehab services, and medical equipment. Patient states she does not want to go to inpatient rehab again. She states that she feels she will need a skilled facility. MICHAEL for [facility] signed. I will send referral on Saturday. CM will continue to follow and will assist as needed with dc plans/needs. Adjunct Spanish Instructor: Leticia Olivarez DCPIA - Discharge Planning Initial Assessment Updated by [email or web address]: Leticia Olivarez on 12/25/19 4:47 pm * Is the patient Alert and Oriented? Yes * How many steps to enter\exit or inside your home? 2/3 * PCP Dr. Ortiz * Pharmacy [facility] [address] * Preadmission Environment Acute Inpatient Rehab * Facility Name [facility] * ADLs Partial Dependent * Partial ADLs (Assistance needed) Ambulation Bathing Dressing Toileting Transfers * Equipment Cane Other Oxygen Walker * Other Equipment Portable oxygen * List name and contact numbers for known caregivers / representatives who currently or will assist patient after discharge: Edward - spouse - [phone] * Verbal permission to speak to the caregivers and representatives has been obtained from the patient. Yes * Community resources currently utilized None * Please name any agencies selected above. DME for oxygen - [facility] * Additional services required to return to the preadmission environment? Yes * Can the patient safely return to the preadmission environment? Yes * Has this patient been hospitalized within the prior 30 days at any hospital? Yes Coverage Notice Reviewer: [id number] - Leticia Olivarez Notice Issued Date-Time: 12/25/2019 16:51 Notice Type: Patient Choice Letter Notice Delivered To: Patient Relationship to Patient: Self Buffing Machine Tender Name: Delivery Method: HAND - Hand Delivered Ernestine Days: Prior Verbal Notification: Recipient Understood Notice: Yes Recipient Signature: Yes Med Rec Note Co-signed by Attending: Coverage Notice Comment: MICHAEL Bhakta Reviewer: [id number] Kendall Olivarez Notice Issued Date-Time: 01/01/2020 10:28 Notice Type: IM Discharge Notice Notice Delivered To: Patient Relationship to Patient: Self Buffing Machine Tender Name: Delivery Method: HAND - Hand Delivered Ernestine Days: Prior Verbal Notification: Recipient Understood Notice: Yes Recipient Signature: Yes Med Rec Note Co-signed by Attending: Coverage Notice Comment: IMM explained, signed, given, copy placed in MR Last DP export: 01/01/20 1:25 p Patient Name: MATTEO GANNON Page [id number] at 0853 All edits/amendments must be made on the electronic document DICTATION DATE: 01/04/20851 ASBESTOS BRAKE LINING FINISHER: RAJWINDER 01/04/20 0852 RPT#: [id number] DC DATE:01/01/20 STATUS: DIS IN [facility] [address] [place] [address] END OF REPORT
== END 2020-01-01 16:50 | DRG 291 ==
LOC: D.M2 12:33 → D.SDCHOLD 01-01 14:06 → D.M2 01-01 14:06
PROVIDERS: ADMIT Family Medicine; ATTEND Family Medicine
DX: I50.33 Acute on chronic diastolic (congestive) heart failure (principal); J96.21 Acute and chronic respiratory failure with hypoxia; G72.0 Drug-induced myopathy; J84.9 Interstitial pulmonary disease, unspecified; M32.9 Systemic lupus erythematosus, unspecified; E03.9 Hypothyroidism, unspecified; K21.9 Gastro-esophageal reflux disease without esophagitis; M81.0 Age-related osteoporosis without current pathological fracture; I48.91 Unspecified atrial fibrillation; T38.0X5A Adverse effect of glucocorticoids and synthetic analogues, initial encounter; M53.3 Sacrococcygeal disorders, not elsewhere classified; Z95.0 Presence of cardiac pacemaker

== ENCOUNTER 2020-01-11 12:11 | Inpatient (IN) | payer MEDICARE, OTHER ==
[~2020-01-11] VITALS: Ht 167.6 cm; Wt 69.1 kg
[2020-01-11] VITALS (7 sets, daily range): BP systolic 130–160; BP diastolic 87–102
[2020-01-11] MEDS ORDERED: TESSALON PERLE100 MG PO (12:22)
[2020-01-11] MEDS ORDERED: VITAMIN D2000 UNI1 PO (12:23)
[2020-01-11 15:34] LABS: HEMATOCRIT 42.5 % (36.0-48.0); MCH 27.5 pg (26.0-34.0); MCHC 30.6 g/dL (31.0-37.0); MCV 89.9 fL (80.0-100.0); MEAN PLATELET VOLUME 10.1 fL (7.4-10.4); PLATELET COUNT 252 10x3/uL (130-400); RBC 4.73 10x6/uL (4.00-5.40); RDW 16.6 % (11.5-14.5); WBC 21.2 10x3/uL (4.8-10.8)
[2020-01-11 15:36] LABS: CALC OSMOLALITY 286 mosm/kg (275-300); CALCIUM 9.6 mg/dL (8.5-10.1); CHLORIDE - SERUM 102 mmol/L (98-107); CREATININE - SERUM 0.8 mg/dL (0.6-1.3); POTASSIUM - SERUM 4.3 mmol/L (3.5-5.1); SODIUM 140 mmol/L (136-145); UREA NITROGEN 28 mg/dL (7-18); eGFR NON AFRICAN AMERICAN 75 mL/min (90-120)
[2020-01-11 15:42] LABS: ALBUMIN 2.7 g/dL (3.4-5.0); ALKALINE PHOSPHATASE 86 U/L (30-120); ALT (SGPT) 47 U/L (10-68); BILIRUBIN - TOTAL 0.56 mg/dL (0.2-1.3)
[2020-01-11 15:46] LABS: GLUCOSE 132 mg/dL (74-106)
[2020-01-11 16:05] LABS: BILIRUBIN NEGATIVE (NEGATIVE); KETONE NEGATIVE (NEGATIVE); NITRITE NEGATIVE (NEGATIVE); UROBILINOGEN NORMAL mg/dL (< 2)
[2020-01-11 16:06] LABS: EPITHELIAL CELLS 0-5 /hpf (0-5)
[2020-01-11 16:10] LABS: BACTERIA FEW HPF (NONE SEEN)
[2020-01-11 17:23] LABS: LYMPHOCYTES 7 % (15-50); MONOCYTES 2 % (2-11); NEUTROPHILS 91 % (40-80); PLATELET ESTIMATE NORMAL
--- NOTE | 2020-01-11 17:41 | NUR ---
COVID SWAB TAKEN TO LAB
--- NOTE | 2020-01-11 19:00 | NUR ---
REPORT TO CAMMY HERNANDEZ.
[2020-01-12 05:26] LABS: BASOPHILS 0.2 % (0-2); EOSINOPHILS 7.8 % (0-7); HEMATOCRIT 37.8 % (36.0-48.0); HEMOGLOBIN 11.3 g/dL (12-16); IMMATURE GRANULOCYTES 4.7 % (0-5); LYMPHOCYTES 4.7 % (15-50); MCH 26.8 pg (26.0-34.0); MCHC 29.9 g/dL (31.0-37.0); MCV 89.6 fL (80.0-100.0); MEAN PLATELET VOLUME 10.2 fL (7.4-10.4); MONOCYTES 2.7 % (2-11); NEUTROPHILS 79.9 % (40-80); PLATELET COUNT 219 10x3/uL (130-400); RBC 4.22 10x6/uL (4.00-5.40); RDW 16.6 % (11.5-14.5); WBC 19.3 10x3/uL (4.8-10.8)
[2020-01-12 05:58] LABS: CALC OSMOLALITY 284 mosm/kg (275-300); CALCIUM 8.9 mg/dL (8.5-10.1); CARBON DIOXIDE 25.6 mmol/L (21.0-32.0); CHLORIDE - SERUM 105 mmol/L (98-107); CREATININE - SERUM 0.8 mg/dL (0.6-1.3); GLUCOSE 85 mg/dL (74-106); SODIUM 139 mmol/L (136-145); UREA NITROGEN 35 mg/dL (7-18); eGFR NON AFRICAN AMERICAN 75 mL/min (90-120)
[2020-01-12 06:20] LABS: POTASSIUM - SERUM 3.2 mmol/L (3.5-5.1)
[2020-01-12 13:24] VITALS: BP 106/66
[2020-01-12 15:08] VITALS: BP 112/82
[2020-01-12 15:27] LABS: THYROID STIMULATING HORMONE 1.67 uIU/mL (0.36-3.74)
[2020-01-12 15:44] VITALS: Ht 167.6 cm; Wt 69.1 kg
[2020-01-12 20:20] VITALS: BP 102/65
--- NOTE | 2020-01-12 20:26 | NUR ---
PATIENT ARRIVED FROM ER VIA STRETCHER. PATIENT IS ALERT AND AT TIMES PLEASANTLY CONFUSED. RESPIRATIONS ARE EVEN AND UNLABORED. NO S/S OF DISTRESS. NO C/O PAIN. CALL LIGHT WITHIN REACH. WILL CPOC.
[2020-01-13] VITALS: BP 120/75
[2020-01-13 04:00] VITALS: BP 121/67
[2020-01-13 07:15] LABS: BASOPHILS 0.1 % (0-2); EOSINOPHILS 0 % (0-7); HEMATOCRIT 36.5 % (36.0-48.0); HEMOGLOBIN 10.9 g/dL (12-16); IMMATURE GRANULOCYTES 3.9 % (0-5); LYMPHOCYTES 5.1 % (15-50); MCH 26.8 pg (26.0-34.0); MCHC 29.9 g/dL (31.0-37.0); MCV 89.7 fL (80.0-100.0); MEAN PLATELET VOLUME 10.1 fL (7.4-10.4); MONOCYTES 4.3 % (2-11); NEUTROPHILS 86.6 % (40-80); PLATELET COUNT 215 10x3/uL (130-400); RBC 4.07 10x6/uL (4.00-5.40); RDW 16.5 % (11.5-14.5)
--- NOTE | 2020-01-13 07:20 | NUR ---
RECIEVE REPORT. RESTING IN BED WITH EYES CLOSED. GARCIA DRAINING AT BY GRAVITY. SINUS RYTHM ON TELEMETRY. NO SIGNS OF DISTRESS. FAMILY AT BEDSIDE. CONTINUE PLAN OF CARE AND SAFETY PRECAUTIONS.
[2020-01-13 07:27] LABS: CARBON DIOXIDE 24.1 mmol/L (21.0-32.0); CHLORIDE - SERUM 107 mmol/L (98-107); POTASSIUM - SERUM 3.5 mmol/L (3.5-5.1); SODIUM 142 mmol/L (136-145); UREA NITROGEN 27 mg/dL (7-18)
[2020-01-13 07:34] LABS: CALC OSMOLALITY 285 mosm/kg (275-300); CREATININE - SERUM 0.5 mg/dL (0.6-1.3); GLUCOSE 64 mg/dL (74-106); eGFR NON AFRICAN AMERICAN > 90 mL/min (90-120)
--- NOTE | 2020-01-13 08:54 | HP ---
PATIENT: MATTEO GANNON MEDICAL RECORD: [id number] ACCOUNT: [id number] LOCATION:[address] : [birth year] ADMISSION DATE: 01/11/20 PCP: MUNIRA ORTIZ MD HISTORY AND PHYSICAL EXAMINATION DATE OF ADMISSION: 01/11/2020 REASON FOR ADMISSION: High white blood cell count, recurrence of pneumonia. HISTORY OF PRESENT ILLNESS: This 69-year-old female with multiple medical problems including interstitial lung disease, lupus, polymyositis, sick sinus syndrome with pacemaker, recent hospitalization for pneumonia. She was discharged from [facility] to inpatient rehab and then had to come back upstairs to acute care for acute on chronic respiratory failure and she was discharged to [facility] after that hospitalization. She has been over there and was diagnosed with Klebsiella pneumoniae UTI which was only sensitive to imipenem and meropenem. She was placed on meropenem on 01/02. The last 2 or 3 days in [facility], she had become more lethargic. Her white count was up to 21,000 from 15,000. She started having muscle twitching. She would fall asleep very easily. Staff at [facility] felt she needed to be evaluated in emergency room and she was brought to [facility]. Her white count in the emergency department was 21,300. Her comprehensive metabolic panel was fairly normal and urinalysis just showed a few bacteria. Chest x-ray compared to the last one done before her last discharge showed improving lower lobe airspace disease. She appeared weaker. She was not able to get anything down really over in rehab. She is admitted for the high white blood cell count and continued pneumonia. PAST MEDICAL AND SURGICAL HISTORY: Again, severe interstitial lung disease; lupus; polymyositis, followed by Dr. Dove; interstitial pneumonia in 2016; sick sinus syndrome with pacemaker; diastolic congestive heart failure; hypothyroidism; osteopenia; depression; hyperlipidemia; reflux; lumbar disc disease; allergic rhinitis; osteoporosis; paroxysmal atrial fibrillation; chronic fatigue. She has had a pacemaker placed. She had lumbar laminectomy just a couple of months ago by Dr. Amaya. She had a cholecystectomy and a hysterectomy along with the lumbar laminectomy. HOME MEDICATIONS: Include Plaquenil 200 mg once a day; Bactrim on Saturday, Saturday, and Saturday; metoprolol succinate XL 25 mg 1/2 daily; sotalol 80 mg 1 daily; gabapentin 100 mg 3 times a day; sertraline 50 mg at bedtime; hydroxyzine 25 mg twice a day; tramadol 100 mg every 4-6 hours as needed for compression fracture of her coccyx; calcium carbonate with vitamin D once a day; Tessalon Perles 100 mg t.i.d. p.r.n. cough; Mucinex 600 mg take 2 twice a day; Protonix 40 mg twice a day; levothyroxine 25 mcg once a day; prednisone currently at 20 mg twice a day; multivitamin once a day; vitamin D 2000 units 3 times a day; mycophenolate sodium 360 mg take 2 pills 3 times a day. ALLERGIES: METOCLOPRAMIDE. SOCIAL HISTORY: Former smoker. No alcohol or drug abuse. She is retired, lives with her . FAMILY HISTORY: Mother at 76 with breast cancer. She also had adult-onset diabetes. Father at 82. He had arthritis and heart disease. HISTORY AND PHYSICAL [id number] MATTEO GANNON REVIEW OF SYSTEMS: CONSTITUTIONAL: Since her recent hospitalization, she has been very fatigued, really not able to get up and walk. She is on oxygen at home. HEENT: No significant sinus or allergy problems. RESPIRATORY: She has had the severe interstitial lung disease, followed by Dr. Danielle. CARDIAC: Again, the history of paroxysmal atrial fibrillation and sick sinus syndrome with pacemaker. GASTROINTESTINAL: Reflux. No significant constipation. GENITOURINARY: Occasional urinary tract infections. MUSCULOSKELETAL: She has myositis and lupus. ENDOCRINE: No diabetes. She has mild hypothyroidism. NEUROLOGIC: No history of stroke, TIA, or seizures. INTEGUMENT: No rash. PSYCHIATRIC: Denies depression. PHYSICAL EXAMINATION: VITAL SIGNS: In the ER, she was afebrile, heart rate 93, respirations 22, blood pressure a little elevated at 160/98, O2 sat was 96% on 2 L. GENERAL: She appears lethargic, which is not her. SKIN: Warm and dry. HEENT: Grossly within normal limits. NECK: Supple. No JVD or bruit. HEART: Regular rate and rhythm. LUNGS: Diminished breath sounds in the bases bilaterally. ABDOMEN: Soft, flat, nontender. EXTREMITIES: No edema. NEUROLOGIC: She will wake up and follow commands, but just a little confused and lethargic. LABORATORY DATA: CBC with a white count 21,300; hemoglobin 13; hematocrit 42.5. Basic metabolic panel: Sodium 140, potassium 4.3, chloride 102, CO2 of 32, BUN 28, creatinine 0.8, glucose 132, calcium 9.6. Liver functions are normal. Chest x-ray compared to the last one done here at [facility] on 12/29/2019 showed actually improving picture in lower lobes. Urinalysis showed trace leukocyte esterase, 25-50 red blood cells, 10-25 white blood cells, 0-5 epithelial cells, and a few bacteria. Blood cultures and urine cultures are done and are pending. ASSESSMENT: 1. Elevated white blood cell count. 2. Actually improving bilateral lower lobe pneumonia. 3. Mild mental status change and muscle "twitching." PLAN: We will admit. Continue Merrem due to recent Klebsiella pneumoniae ESBL found at [facility]. We will continue those antibiotics. We will ask Dr. Danielle to see her, although it appears that from pulmonary standpoint she is actually getting better. Other tests or procedures as warranted. NTS:[id number] Voice Confirmation ID: [id number] DOCUMENT ID: [id number] HISTORY AND PHYSICAL [id number] MATTEO GANNON WILLIAM MD at 0854 CC: [id number] DICTATION DATE: 01/12/20 1649 INPATIENT CARE MANAGER RN: 01/12/20 1843 ADM IN [facility] [address] [place] [id number]
[2020-01-13 10:52] VITALS: BP 104/72
[2020-01-13] MEDS ORDERED: NYSTATIN100000 UN4 PO (13:52)
[2020-01-13] MEDS ORDERED: BETAPACE 80 MG80 MG PO (13:52)
[2020-01-13] MEDS ORDERED: PREDNISONE20 MG PO (13:55)
[2020-01-13] MEDS ORDERED: ULTRAM50 MG PO (13:56)
--- NOTE | 2020-01-13 14:26 | MORECARE ---
CASE MANAGEMENT DISCHARGE SUMMARY PATIENT: MATTEO GANNON UNIT: [id number] ADM DATE: 01/11/20 AGE: 69 : [birth year] SEX: F ROOM/BED: D.[facility] AUTHOR: VIOLA MCLEOD PHYSICIAN: REFERRING PHYSICIAN: MUNIRA ORTIZ MD DATE OF SERVICE: 01/13/20 Discharge Plan Patient Name: MATTEO GANNON Facility: [facility]:[place] : 1950 Planned Disposition: Home with Home Health Anticipated Discharge Date: Discharge Date: Expected LOS: Initial Reviewer: [id number] Initial Review Date: 01/13/2020 Generated: 01/13/20 3:25 pm DCPIA - Discharge Planning Initial Assessment Updated by [email or web address]: Leticia Olivarez on 01/13/20 2:25 pm * Is the patient Alert and Oriented? Yes * How many steps to enter\exit or inside your home? 0/0 * PCP Dr. Ortiz * Pharmacy [facility] [address] * Preadmission Environment Acute Inpatient Rehab * Facility Name [facility] * ADLs Partial Dependent * Partial ADLs (Assistance needed) Ambulation Bathing Dressing Medication Management Toileting Transfers * Equipment Bedside Commode Cane Other Oxygen Walker Wheelchair * Other Equipment Portable oxygen [place] lift * List name and contact numbers for known caregivers / representatives who currently or will assist patient after discharge: Velasquez Gannon - spouse - [phone] * Verbal permission to speak to the caregivers and representatives has been obtained from the patient. Yes * Community resources currently utilized None * Additional services required to return to the preadmission environment? Yes * Can the patient safely return to the preadmission environment? Yes * Has this patient been hospitalized within the prior 30 days at any hospital? Yes External Providers [facility] Next Contact Date: Service Request Date: Service Type: Resolution: Reviewer: Comments: Patient Name: MATTEO GANNON Page [phone] at 1426 All edits/amendments must be made on the electronic document DICTATION DATE: 01/13/20 1425 LABOR RELATIONS SPECIALIST: RAJWINDER 01/13/20 1425 RPT#: [id number] DC DATE: STATUS: ADM IN [facility] [address] [facility] [place] [address] END OF REPORT
--- NOTE | 2020-01-13 14:43 | MORECARE ---
CASE MANAGEMENT DISCHARGE SUMMARY PATIENT: MATTEO GANNON UNIT: [id number] ADM DATE: 01/11/20 AGE: 69 : [birth year] SEX: F ROOM/BED: D.2884 AUTHOR: VIOLA MCLEOD PHYSICIAN: REFERRING PHYSICIAN: MUNIRA ORTIZ MD DATE OF SERVICE: 01/13/20 Discharge Plan Patient Name: MATTEO GANNON Facility: [facility]:[place] : 1950 Planned Disposition: Home with Home Health Anticipated Discharge Date: Discharge Date: Expected LOS: Initial Reviewer: [id number] Initial Review Date: 01/13/2020 Generated: 01/13/20 3:42 pm Comments DCP- Discharge Planning Updated by [email or web address]: Leticia Olivarez on 01/13/20 1:[address] Patient Name: MATTEO GANNON Admission Status: ER Accout number: [id number] Admission Date: 01-11-2020 : 1950 Admission Diagnosis:PNEUMONIA, UNSPECIFIED ORGANISM Attending: MUNIRA ORTIZ Current LOS: 2 Anticipated DC Date: Planned Disposition: Home with Home Health Primary Insurance: MEDICARE A & B Discharge Planning Comments: CM met with patient to complete initial dc planning assessment. CM educated patient on the CM role and verbal consent given by patient to complete assessment. Patient lives at home with her spouse. At discharge patient plans to return and feels this is a safe discharge. CM discussed availability of home health, rehab services, and medical equipment. Patient denied known discharge needs at this time. States "we have everything we need." States her purchased a lift for home use. States he has a wheelchair from [employer]. States she already has oxygen and portable from [facility]. She declines rehab or SNF, states "I have too much pain to do the therapy." MICHAEL for [facility] signed. I called Ray with [facility] and clinical faxed. CM will continue to follow and will assist as needed with dc plans/needs. Department Manager: Leticia Olivarez DCPIA - Discharge Planning Initial Assessment Updated by [id number]: Leticia Olivarez on 01/13/20 2:25 pm * Is the patient Alert and Oriented? Yes * How many steps to enter\\exit or inside your home? 0/0 * PCP Dr. Ortiz * Pharmacy [facility] [address] * Preadmission Environment Acute Inpatient Rehab * Facility Name [facility] * ADLs Partial Dependent * Partial ADLs (Assistance needed) Ambulation Bathing Dressing Medication Management Toileting Transfers * Equipment Bedside Commode Cane Other Oxygen Walker Wheelchair * Other Equipment Portable oxygen [place] lift * List name and contact numbers for known caregivers / representatives who currently or will assist patient after discharge: Velasquez Gannon - spouse - [phone] * Verbal permission to speak to the caregivers and representatives has been obtained from the patient. Yes * Community resources currently utilized None * Additional services required to return to the preadmission environment? Yes * Can the patient safely return to the preadmission environment? Yes * Has this patient been hospitalized within the prior 30 days at any hospital? Yes Coverage Notice Reviewer: [id number] Kendall Olivarez Notice Issued Date-Time: 01/13/2020 14:36 Notice Type: Patient Choice Letter Notice Delivered To: Patient Relationship to Patient: Self Extruder Operator Horizontal Name: Delivery Method: HAND - Hand Delivered [place] Days: Prior Verbal Notification: Recipient Understood Notice: Yes Recipient Signature: Yes Med Rec Note Co-signed by Attending: Coverage Notice Comment: MICHAEL for [facility] Last DP export: 01/13/20 1:25 p Patient Name: MATTEO GANNON Page [id number] at 1443 All edits/amendments must be made on the electronic document DICTATION DATE: 01/13/201441 SUBGRADE ROLLER OPERATOR: RAJWINDER 01/13/20 144 RPT#: [id number] DC DATE: STATUS: ADM IN [facility] [address] [place] [address] END OF REPORT
[2020-01-13 14:54] VITALS: BP 127/71
--- NOTE | 2020-01-13 16:03 | NUR ---
ALERT AND ORIENTED X4. SITTING UP IN BED. DISCHARGE INSTRUCTIONS GIVEN VERBALLY AND WRITTEN. DISCHARGE PAPERS SIGNED ON CHART. DC LT FA IV TIP INTACT. DC GARCIA BULB INTACT. ESCORT TO RIDE VIA WHEELCHAIR. REMAINS FREE FROM INJURY.
--- NOTE | 2020-01-14 09:24 | MORECARE ---
CASE MANAGEMENT DISCHARGE SUMMARY PATIENT: MATTEO GANNON UNIT: [id number] ADM DATE: 01/11/20 AGE: 69 : [birth year] SEX: F ROOM/BED: D.1537 AUTHOR: VIOLA MCLEOD PHYSICIAN: REFERRING PHYSICIAN: MUNIRA ORTIZ MD DATE OF SERVICE: 01/14/20 Discharge Plan Patient Name: MATTEO GANNON Facility: [facility]:[place] : 1950 Planned Disposition: Home with Home Health Anticipated Discharge Date: Discharge Date: 01/13/2020 Expected LOS: Initial Reviewer: [email or web address] Initial Review Date: 01/13/2020 Generated: 01/14/20 10:24 am Comments DCP- Discharge Planning Updated by [email or web address]: Leticia Olivarez on 01/13/20 1:[address] Patient Name: MATTEO GANNON Admission Status: ER Accout number: [id number] Admission Date: 01-11-2020 : 1950 Admission Diagnosis:PNEUMONIA, UNSPECIFIED ORGANISM Attending: MUNIRA ORTIZ Current LOS: 2 Anticipated DC Date: Planned Disposition: Home with Home Health Primary Insurance: MEDICARE A & B Discharge Planning Comments: CM met with patient to complete initial dc planning assessment. CM educated patient on the CM role and verbal consent given by patient to complete assessment. Patient lives at home with her spouse. At discharge patient plans to return and feels this is a safe discharge. CM discussed availability of home health, rehab services, and medical equipment. Patient denied known discharge needs at this time. States "we have everything we need." States her purchased a lift for home use. States he has a wheelchair from [employer]. States she already has oxygen and portable from [employer]. She declines rehab or SNF, states "I have too much pain to do the therapy." MICHAEL for [facility] signed. I called Ray with [facility] and clinical faxed. CM will continue to follow and will assist as needed with dc plans/needs. Public Speaking Teacher: Leticia Olivarez DCPIA - Discharge Planning Initial Assessment Updated by [id number]: Leticia Olivarez on 01/13/20 2:25 pm * Is the patient Alert and Oriented? Yes * How many steps to enter\\exit or inside your home? 0/0 * PCP Dr. Ortiz * Pharmacy [facility] [address] * Preadmission Environment Acute Inpatient Rehab * Facility Name [facility], [facility] * ADLs Partial Dependent * Partial ADLs (Assistance needed) Ambulation Bathing Dressing Medication Management Toileting Transfers * Equipment Bedside Commode Cane Other Oxygen Walker Wheelchair * Other Equipment Portable oxygen [place] lift * List name and contact numbers for known caregivers / representatives who currently or will assist patient after discharge: Velasquez Gannon - spouse - [phone] * Verbal permission to speak to the caregivers and representatives has been obtained from the patient. Yes * Community resources currently utilized None * Additional services required to return to the preadmission environment? Yes * Can the patient safely return to the preadmission environment? Yes * Has this patient been hospitalized within the prior 30 days at any hospital? Yes Coverage Notice Reviewer: [id number] Kendall Olivarez Notice Issued Date-Time: 01/13/2020 14:36 Notice Type: Patient Choice Letter Notice Delivered To: Patient Relationship to Patient: Self Heel Cutter Name: Delivery Method: HAND - Hand Delivered Ernestine Days: Prior Verbal Notification: Recipient Understood Notice: Yes Recipient Signature: Yes Med Rec Note Co-signed by Attending: Coverage Notice Comment: MICHAEL for [facility] Last DP export: 01/13/20 1:43 p Patient Name: MATTEO GANNON Page [id number] at 0924 All edits/amendments must be made on the electronic document DICTATION DATE: 01/14/20923 WET PAN MIXER: RAJWINDER 01/14/20923 RPT#: [id number] DC DATE:01/13/20 STATUS: DIS IN [facility] [address] [place] [address] END OF REPORT
--- NOTE | 2020-01-14 10:47 | EC ---
PATIENT:MATTEO GANNON DATE OF SERVICE: 01/11/20 SEX: F MEDICAL RECORD: [id number] DATE OF : [birth year] LOCATION:D.M2 D.211 AGE OF PATIENT: 69 ADMISSION DATE: 01/11/20 REFERRING PHYSICIAN: INTERPRETING PHYSICIAN: SPENCER SILVA MD ECHOCARDIOGRAM REPORT ECHO CHARGES 5 ECHO LIMITED Date: 01/13/20 CLINICAL DIAGNOSIS: AFIB ECHOCARDIOGRAPHIC MEASUREMENTS (adult normal given) AC root (d.<3.7cm) 0 cm LV Septum d (<1.2 cm> 0 cm Valve Excursion 0 cm LV Septum (systole) 0 cm Left Atria (s.<4.0cm> 0 cm LVPW d(<1.2cm) 0 cm RV (d.<2.3cm) 0 cm LVPW (sytole) 0 cm LV diastole(<5.6CM) 0 cm MV E-F(>70mm/sec) 0 cm LV systole 0 cm LVOT Diameter 0 cm MV exc.(>10mm) 0 cm Est.ejection fraction (50-75%) % DOPPLER: LVIT cm/sec A 0 cm/sec E 0 cm/sec LA cm/sec RVSP 35 mmHg LVOT 0 cm/sec AOP1/2T m/s Asc. Ao 0 cm/sec RVOT 0 cm/sec RA 0 cm/sec PA 0 cm/sec AV Gradient Peak 0 mmHg AV Mean 0 mmHg AV Area 0 cm MV Gradient Peak 0 mmHg MV Mean 0 mmHg MV Area cm COMMENTS: Project Consultant: Kim HARRELL Char Conveyor Tender Cellar: 3 Dr. Chapa TAPE# PACS Pericardial Effusion N DATE OF SERVICE: Adequate 2D, color flow imaging, spectral Doppler, and M-Mode. No LVH. LV internal dimensions are normal. Wall motion is normal. EF is greater than or equal to 55%. Aortic valve with good valve excursion. No significant AI. Left atrium appears normal. Mitral valve shows no prolapse. Trivial MR. Right-sided chambers are grossly normal. Trivial TR. TRANSINT:[id number] Voice Confirmation ID: [id number] DOCUMENT ID: [id number] ECHOCARDIOGRAM REPORT [id number] MATTEO GANNON SPENCER SILVA MD at 1047 CC: [id number] DICTATION DATE: 01/13/20 1643 ADMISSION DISCHARGE RN: 01/13/20 2331 DIS IN 01/13/20 [facility] [address] [place], [facility]
== END 2020-01-13 16:40 | disposition home health service (06) | DRG 190 ==
LOC: D.ER 12:11 → D.EDHOLD 18:00 → D.M2 01-12 18:38
PROVIDERS: Emergency Medicine; ADMIT Family Medicine; ATTEND Family Medicine
DX: J44.0 Chronic obstructive pulmonary disease with (acute) lower respiratory infection (principal); J18.9 Pneumonia, unspecified organism; N39.0 Urinary tract infection, site not specified; J96.11 Chronic respiratory failure with hypoxia; G72.0 Drug-induced myopathy; M48.54XA Collapsed vertebra, not elsewhere classified, thoracic region, initial encounter for fracture; I50.32 Chronic diastolic (congestive) heart failure; I25.10 Atherosclerotic heart disease of native coronary artery without angina pectoris; E11.9 Type 2 diabetes mellitus without complications; I48.91 Unspecified atrial fibrillation; E87.6 Hypokalemia; J30.9 Allergic rhinitis, unspecified; T38.0X5A Adverse effect of glucocorticoids and synthetic analogues, initial encounter; M81.0 Age-related osteoporosis without current pathological fracture; K21.9 Gastro-esophageal reflux disease without esophagitis; E03.9 Hypothyroidism, unspecified; Z95.0 Presence of cardiac pacemaker